=== PATIENT | female | born 1965 | race African-American/Black ===

== ENCOUNTER 2018-03-20 22:04 | Inpatient (IN) | payer MEDICAID, OTHER ==
[~2018-03-20] VITALS: Ht 165.1 cm; Wt 69.5 kg
[~2018-03-20 22:04] MED LIST: ALBU8I INH; INVE39IN IM; LISI-363 PO
[2018-03-20 22:11] VITALS: BP 168/94; PULSE 104; RESP 12; TEMP 98.4; O2SAT 98
--- NOTE | 2018-03-20 22:23 | PD ---
HPI Chief Complaint: Psychiatric Symptoms Time Seen by Provider: 22:08 Travel History International Travel<30 days: No Contact w/Intl Traveler<30days: No Traveled to known affect area: No History of Present Illness HPI 52-year-old black female with a history of bipolar, hypertension and MS presents under Bella act by PD. Family members contacted PD that the patient has been noncompliant with her medications. She had been getting in Ardon Mariangel injections but has not taken them recently. The patient states that she does not want to take injections any longer. She also states that she had an argument with her daughter who wants to be her payee. She does not want her daughter to be her payee. She states that her son is currently her payee and does not want to change it. She is concerned that she is attempting to get her money. Patient denies any suicidal homicidal ideation. No toxic ingestions. She does complain of chronic weakness which is progressively getting worse over time. She uses a cane for ambulation. She has not taken her evening medications. PFSH Past Medical History Asthma: Yes Blood Disorders: No Bipolar Disorder: Yes Anxiety: Yes Depression: Yes Cancer: Yes (STOMACH CANCER PER PT) Cardiovascular Problems: No COPD: Yes Diabetes: No Diminished Hearing: No Endocrine: No Gastrointestinal Disorders: No Genitourinary: No Hepatitis: Yes Hypertension: Yes Musculoskeletal: Yes (MS) Neurologic: No Psychiatric: Yes Reproductive: Yes (HERPES) Respiratory: No Immunizations Current: No Schizophrenia: Yes PNEUMOCCOCAL Vaccine (Year): 2 ?: Not Menopausal: Yes : 7 Para: 5 Miscarriage: 2 : 0 Dilation and Curettage (D&C): Yes (approx. 15 yrs ago) Tubal Ligation: Yes Past Surgical History AICD: No Arteriovenous Shunt: No Gynecologic Surgery: Yes Insulin Pump: No Joint Replacement: No Pacemaker: No Other Surgery: No Social History Alcohol Use: Yes (OCCASIONAL) Tobacco Use: Yes (1PPD) Substance Use: Yes (Marijuana) Allergies-Medications (Allergen,Severity, Reaction): Coded Allergies: diatrizoate meglumine (Unverified Adverse Reaction, Severe, UNKNOWN, ) PT IS UNAWARE OF ALLERGIES, SHE IS UNSURE, SHE SAID ADMITTED FOR 3 DAYS, SWOLLEN HEAD gadobenic acid (Unverified Adverse Reaction, Severe, UNKNOWN, 05/22/17) PT IS UNAWARE OF ALLERGIES, SHE IS UNSURE, SHE SAID ADMITTED FOR 3 DAYS, SWOLLEN HEAD gadodiamide (Unverified Adverse Reaction, Severe, UNKNOWN, 05/22/17) PT IS UNAWARE OF ALLERGIES, SHE IS UNSURE, SHE SAID ADMITTED FOR 3 DAYS, SWOLLEN HEAD gadoteridol (Unverified Adverse Reaction, Severe, UNKNOWN, 05/22/17) PT IS UNAWARE OF ALLERGIES, SHE IS UNSURE, SHE SAID ADMITTED FOR 3 DAYS, SWOLLEN HEAD iodixanol (Unverified Adverse Reaction, Severe, UNKNOWN, 05/22/17) PT IS UNAWARE OF ALLERGIES, SHE IS UNSURE, SHE SAID ADMITTED FOR 3 DAYS, SWOLLEN HEAD iohexol (Unverified Adverse Reaction, Severe, UNKNOWN, 05/22/17) PT IS UNAWARE OF ALLERGIES, SHE IS UNSURE, SHE SAID ADMITTED FOR 3 DAYS, SWOLLEN HEAD Reported Meds & Prescriptions Reported Meds & Active Scripts Active Reported Invega Sustenna (Paliperidone Palmitate) 39 Mg/0.25 Ml Inj 39 Mg IM Q28D *FOR INTRAMUSCULAR USE ONLY* Lisinopril 20 mg (Lisinopril) 20 Mg Tab 20 Mg PO DAILY Ventolin Hfa (Albuterol Sulfate) 8 Gm Aero 1 Puff INH Q4 PRN * SHAKE WELL BEFORE USE * Review of Systems General / Constitutional: No: Fever Eyes: Positive: Blurred Vision, Visual changes, No: Diploplia, Photophobia HENT: No: Headaches Cardiovascular: No: Chest Pain or Discomfort Respiratory: No: Shortness of Breath Gastrointestinal: No: Abdominal Pain Genitourinary: No: Dysuria Musculoskeletal: Positive: Weakness, No: Pain Skin: No Rash Neurologic: Positive: Weakness Psychiatric: No: Anxiety, Depression, Suicidal Ideations, Disorder of Thought, Mood Disorder, Substance Abuse, Homicidal Ideation Endocrine: No: Polydipsia Hematologic/Lymphatic: No: Easy Bruising Physical Exam Narrative GENERAL: Well-nourished, well-developed patient. SKIN: Warm and dry. HEAD: Normocephalic and atraumatic. EYES: No scleral icterus. No injection or drainage. ENT: No nasal drainage noted. Mucous membranes pink. Airway patent. NECK: Supple, trachea midline. Moves head freely without obvious discomfort. CARDIOVASCULAR: Regular rate and rhythm without murmurs, gallops, or rubs. RESPIRATORY: Breath sounds equal bilaterally. No accessory muscle use. GASTROINTESTINAL: Abdomen soft, non-tender, nondistended. EXTREMITIES: No cyanosis or edema. BACK: Nontender without obvious deformity. No CVA tenderness. NEURO: Patient is alert and oriented. Patient ambulates with a cane due to her generalized weakness from her MS. Normal speech. PSYCH: No delusions. No auditory or visual hallucinations. Data Data Last Documented VS Vital Signs Date Time Temp Pulse Resp B/P (MAP) Pulse Ox O2 Delivery O2 Flow Rate FiO2 03/20/18 22:11 98.4 104 12 168/94 (118) 98 Orders Orders Complete Blood Count With Diff (03/20/18 22:09) Comprehensive Metabolic Panel (03/20/18 22:09) Thyroid Stimulating Hormone (03/20/18 22:09) Ed Urine Pregnancytest Poc (03/20/18 22:09) Psych Screen (03/20/18 22:09) Drug Screen, Random Urine (03/20/18 22:09) Alcohol (Ethanol) (03/20/18 22:09) Salicylates (Aspirin) (03/20/18 22:09) Tylenol (Acetaminophen) (03/20/18 22:09) Labs Laboratory Tests Test 03/20/18 22:15 White Blood Count 5.2 TH/MM3 Red Blood Count 5.40 MIL/MM3 Hemoglobin 15.8 GM/DL Hematocrit 47.6 % Mean Corpuscular Volume 88.1 FL Mean Corpuscular Hemoglobin 29.3 PG Mean Corpuscular Hemoglobin Concent 33.3 % Red Cell Distribution Width 14.9 % Platelet Count 139 TH/MM3 Mean Platelet Volume 9.4 FL Neutrophils (%) (Auto) 74.6 % Lymphocytes (%) (Auto) 13.5 % Monocytes (%) (Auto) 10.5 % Eosinophils (%) (Auto) 0.5 % Basophils (%) (Auto) 0.9 % Neutrophils # (Auto) 3.9 TH/MM3 Lymphocytes # (Auto) 0.7 TH/MM3 Monocytes # (Auto) 0.5 TH/MM3 Eosinophils # (Auto) 0.0 TH/MM3 Basophils # (Auto) 0.0 TH/MM3 CBC Comment DIFF FINAL Differential Comment Blood Urea Nitrogen 12 MG/DL Creatinine 0.69 MG/DL Random Glucose 85 MG/DL Total Protein 8.3 GM/DL Albumin 4.2 GM/DL Calcium Level 9.2 MG/DL Alkaline Phosphatase 145 U/L Aspartate Amino Transf (AST/SGOT) 30 U/L Alanine Aminotransferase (ALT/SGPT) 28 U/L Total Bilirubin 1.0 MG/DL Sodium Level 142 MEQ/L Potassium Level 3.5 MEQ/L Chloride Level 106 MEQ/L Carbon Dioxide Level 19.8 MEQ/L Anion Gap 16 MEQ/L Estimat Glomerular Filtration Rate 109 ML/MIN Thyroid Stimulating Hormone 3rd Gen 2.010 uIU/ML Salicylates Level 6.7 MG/DL Urine Opiates Screen NEG Acetaminophen Level LESS THAN 2.0 MCG/ML Urine Barbiturates Screen NEG Urine Amphetamines Screen NEG Urine Benzodiazepines Screen NEG Urine Cocaine Screen NEG Urine Cannabinoids Screen POS Ethyl Alcohol Level LESS THAN 3 MG/DL MDM Medical Decision Making Medical Screen Exam Complete: Yes Emergency Medical Condition: Yes Medical Record Reviewed: Yes Interpretation(s) Laboratory Tests Test 03/20/18 22:15 White Blood Count 5.2 TH/MM3 Red Blood Count 5.40 MIL/MM3 Hemoglobin 15.8 GM/DL Hematocrit 47.6 % Mean Corpuscular Volume 88.1 FL Mean Corpuscular Hemoglobin 29.3 PG Mean Corpuscular Hemoglobin Concent 33.3 % Red Cell Distribution Width 14.9 % Platelet Count 139 TH/MM3 Mean Platelet Volume 9.4 FL Neutrophils (%) (Auto) 74.6 % Lymphocytes (%) (Auto) 13.5 % Monocytes (%) (Auto) 10.5 % Eosinophils (%) (Auto) 0.5 % Basophils (%) (Auto) 0.9 % Neutrophils # (Auto) 3.9 TH/MM3 Lymphocytes # (Auto) 0.7 TH/MM3 Monocytes # (Auto) 0.5 TH/MM3 Eosinophils # (Auto) 0.0 TH/MM3 Basophils # (Auto) 0.0 TH/MM3 CBC Comment DIFF FINAL Differential Comment Blood Urea Nitrogen 12 MG/DL Creatinine 0.69 MG/DL Random Glucose 85 MG/DL Total Protein 8.3 GM/DL Albumin 4.2 GM/DL Calcium Level 9.2 MG/DL Alkaline Phosphatase 145 U/L Aspartate Amino Transf (AST/SGOT) 30 U/L Alanine Aminotransferase (ALT/SGPT) 28 U/L Total Bilirubin 1.0 MG/DL Sodium Level 142 MEQ/L Potassium Level 3.5 MEQ/L Chloride Level 106 MEQ/L Carbon Dioxide Level 19.8 MEQ/L Anion Gap 16 MEQ/L Estimat Glomerular Filtration Rate 109 ML/MIN Thyroid Stimulating Hormone 3rd Gen 2.010 uIU/ML Salicylates Level 6.7 MG/DL Urine Opiates Screen NEG Acetaminophen Level LESS THAN 2.0 MCG/ML Urine Barbiturates Screen NEG Urine Amphetamines Screen NEG Urine Benzodiazepines Screen NEG Urine Cocaine Screen NEG Urine Cannabinoids Screen POS Ethyl Alcohol Level LESS THAN 3 MG/DL Differential Diagnosis MDM: High Differential diagnoses: Schizophrenia, schizoaffective disorder, bipolar, anxiety, depression, adjustment reaction, mood disorder NOS, ODD, depressive disorder NOS, psychosis NOS, substance induced mood disorder, infection, electrolyte abnormality, malingering. Narrative Course Mental health screening discussed with the patient. Psychiatric screen ordered. The patient has been medically cleared. This is medical clearance for psychiatric admission Diagnosis Primary Impression: Medical clearance for psychiatric admission Condition: Stable Kelechi Carrero Mar 20, 2018 22:23
[2018-03-20 22:50] LABS: AUTOMATED NEUTROPHIL # 3.9 TH/MM3 (1.8-7.7); BASOPHIL % 0.9 % (0.0-2.0); EOSINOPHIL % 0.5 % (0.0-4.0); HEMATOCRIT 47.6 % (35.0-46.0); HEMOGLOBIN 15.8 GM/DL (11.6-15.3); LYMPH % 13.5 % (9.0-44.0); LYMPHOCYTE # 0.7 TH/MM3 (1.0-4.8); MEAN CELL VOLUME 88.1 FL (80.0-100.0); MEAN CORPUSCULAR HEMOGLOBIN 29.3 PG (27.0-34.0); MEAN CORPUSCULAR HGB CONC 33.3 % (32.0-36.0); MEAN PLATELET VOLUME 9.4 FL (7.0-11.0); MONO % 10.5 % (0.0-8.0); MONOCYTE # 0.5 TH/MM3 (0-0.9); NEUT % 74.6 % (16.0-70.0); PLATELET COUNT 139 TH/MM3 (150-450); RED CELL DISTRIBUTION WIDTH 14.9 % (11.6-17.2); WHITE BLOOD COUNT 5.2 TH/MM3 (4.0-11.0)
[2018-03-20 23:13] LABS: ALBUMIN 4.2 GM/DL (3.4-5.0); AST (GOT) 30 U/L (15-37); BICARBONATE 19.8 MEQ/L (21.0-32.0); BLOOD UREA NITROGEN 12 MG/DL (7-18); CALCIUM 9.2 MG/DL (8.5-10.1); CHLORIDE 106 MEQ/L (98-107); CREATININE 0.69 MG/DL (0.50-1.00); GLOMERULAR FILTRATION RATE 109 ML/MIN (>89); GLUCOSE,RANDOM 85 MG/DL (74-106); SODIUM (NA) 142 MEQ/L (136-145)
[2018-03-20 23:24] LABS: ALKALINE PHOSPHATASE 145 U/L (45-117); ALT (GPT) 28 U/L (10-53); TOTAL PROTEIN 8.3 GM/DL (6.4-8.2)
[2018-03-20 23:29] LABS: ACETAMINOPHEN LESS THAN 2.0 MCG/ML (10.0-30.0)
[2018-03-21 01:17] VITALS: BP_SYST 148; BP_DIAS 88; BP_DIAS 91; PULSE 94; RESP 16; O2SAT 96
[2018-03-21 05:55] VITALS: BP 142/79; PULSE 99; RESP 16; O2SAT 99
[2018-03-21 07:47] VITALS: BP 141/84; PULSE 93; RESP 18; TEMP 98.6; O2SAT 98
--- NOTE | 2018-03-21 11:59 | PD ---
History of Present Illness Chief Complaint: Psychiatric Symptoms Time Seen by Provider: 11:35 Travel History International Travel<30 Days: No Contact w/Intl Traveler<30days: No Known affected area: No Legal Status Legal Status: Bella Act Bella Act Signed By: John Velasco Bella Act Comment: 2017 @ [id number] History of Present Illness: History of Present Illness HPI 52-year-old black female with record history of bipolar disorder, schizophrenia hypertension and MS presents under Bella act initiated by John LE. Family members contacted that the patient has been noncompliant with her medications. The Bella act itself is quite vague and states that she suffers from multiple mental disorders and is unable to care for herself due to her mental disorders. Her last prescribed medications as per the patient was in the vague but she has not had medication and at least 1 year. She tells me that she does not want to take the injections any longer because they made her too sleepy. EMR is reviewed. Her last psychiatric admission in contact with [facility] psychiatry was in March 2013. Current toxicology is positive for cannabinoids Alin, [employer] assistant manager for [facility] informs me that the patient was last seen at [facility] in October 2016. Telephone call to Steven OSMAN at [phone]. Unable to leave a message. Patient is seen in Main ED. She is dressed in [facility]. Disheveled appearance. She is engaging and cooperative. Her speech is fast, she is hyperverbal and circumstantial. She tells me that she will no longer wants to live with her daughter because " my daughter cusses me out over a turkey sandwich". She also makes allegations that her daughter is attempting to get her money. She also says that she does not like the area where she is living because people are threatening her and telling her that she does drugs and sells drugs. She then goes on to tell me "my daughter blames me for her problems because she eats cats. Her father who is also a cat and that is when she has stomach problems". The patient does not appear to be responding to internal stimuli. She denies suicidal ideation. She denies homicidal ideation but she makes frequent and repeated statements that she is going to beat her daughter up when she gets out of the hospital. Patient states that she has not been sleeping well in the last several weeks. PFSH Past Medical History Hx Anticoagulant Therapy: No Asthma: Yes Blood Disorders: No Bipolar Disorder: Yes Anxiety: Yes Depression: Yes Cancer: Yes (STOMACH CANCER PER PT) Cardiovascular Problems: Yes Chemotherapy: No COPD: Yes Cerebrovascular Accident: No Diabetes: No Diminished Hearing: No Endocrine: No Gastrointestinal Disorders: No Genitourinary: No Hepatitis: Yes Hypertension: Yes Musculoskeletal: Yes (MS) Neurologic: No Psychiatric: Yes Reproductive: Yes (HERPES) Respiratory: No Immunizations Current: Yes Schizophrenia: Yes Tetanus Vaccination: < 5 Years Influenza Vaccination: No PNEUMOCCOCAL Vaccine (Year): 2 ?: Not Menopausal: Yes : 7 Para: 5 Miscarriage: 2 : 0 Dilation and Curettage (D&C): Yes (approx. 15 yrs ago) Tubal Ligation: Yes Past Surgical History AICD: No Arteriovenous Shunt: No Gynecologic Surgery: Yes Insulin Pump: No Joint Replacement: No Pacemaker: No Other Surgery: No Psychiatric History Psychiatric History Hx Psychiatric Treatment: HISTORY OF BIPOLAR DISORDER. Record history of schizophrenia. Last received medications at [facility] in October 2016. History of Inpatient Treatment: Yes Guns or firearms in home: No Social History Single. Daughter. On disability Hx Alcohol Use: Yes (OCCASIONAL) Hx Tobacco Use: Yes (1PPD) Hx Substance Use: Yes (Marijuana) Substance Use Type: Alcohol, Crack, Marijuana Other Substances Used: DENIES RECENT CRACK USE Hx of Substance Use Treatment: No Family Psychiatric History None reported Allergies-Medications (Allergen,Severity, Reaction): Coded Allergies: diatrizoate meglumine (Unverified Adverse Reaction, Severe, UNKNOWN, ) PT IS UNAWARE OF ALLERGIES, SHE IS UNSURE, SHE SAID ADMITTED FOR 3 DAYS, SWOLLEN HEAD gadobenic acid (Unverified Adverse Reaction, Severe, UNKNOWN, 05/22/17) PT IS UNAWARE OF ALLERGIES, SHE IS UNSURE, SHE SAID ADMITTED FOR 3 DAYS, SWOLLEN HEAD gadodiamide (Unverified Adverse Reaction, Severe, UNKNOWN, 05/22/17) PT IS UNAWARE OF ALLERGIES, SHE IS UNSURE, SHE SAID ADMITTED FOR 3 DAYS, SWOLLEN HEAD gadoteridol (Unverified Adverse Reaction, Severe, UNKNOWN, 05/22/17) PT IS UNAWARE OF ALLERGIES, SHE IS UNSURE, SHE SAID ADMITTED FOR 3 DAYS, SWOLLEN HEAD iodixanol (Unverified Adverse Reaction, Severe, UNKNOWN, 05/22/17) PT IS UNAWARE OF ALLERGIES, SHE IS UNSURE, SHE SAID ADMITTED FOR 3 DAYS, SWOLLEN HEAD iohexol (Unverified Adverse Reaction, Severe, UNKNOWN, 05/22/17) PT IS UNAWARE OF ALLERGIES, SHE IS UNSURE, SHE SAID ADMITTED FOR 3 DAYS, SWOLLEN HEAD Reported Meds & Prescriptions Reported Meds & Active Scripts Active Reported Invega Sustenna (Paliperidone Palmitate) 39 Mg/0.25 Ml Inj 39 Mg IM Q28D *FOR INTRAMUSCULAR USE ONLY* Lisinopril 20 mg (Lisinopril) 20 Mg Tab 20 Mg PO DAILY Ventolin Hfa (Albuterol Sulfate) 8 Gm Aero 1 Puff INH Q4 PRN * SHAKE WELL BEFORE USE * Review of Systems ROS Limitations: Clinical Condition Mental Status Examination Appearance: Appropriate Consciousness: Alert Orientation: x4 Motor Activity: Abnormal gait, Other (uses a walker) Speech: Rapid Language: Adequate Fund of Knowledge: Adequate Attention and Concentration: Easily Distracted Memory: Unremarkable Mood: Angry Affect: Appropriate Thought Process & Associations: Circumstantial Thought Content: Appropriate Hallucination Type: None Delusion Type: None, Other (suspicious) Suicidal Ideation: No Suicidal Plan: No Suicidal Intention: No Homicidal Ideation: No Homicidal Plan: No Homicidal Intention: No Insight: Fair Judgment: Impulsive MDM Medical Decision Making Medical Record Reviewed: Yes Assessment/Plan History of Present Illness HPI 52-year-old black female with record history of bipolar disorder, schizophrenia hypertension and MS presents under Bella act initiated by [facility]. Family members contacted PD that the patient has been noncompliant with her medications. The Bella act itself is quite vague and states that she suffers from multiple mental disorders and is unable to care for herself due to her mental disorders. Her last prescribed medications as per the patient was in the vague but she has not had medication and at least 1 year. She tells me that she does not want to take the injections any longer because they made her too sleepy. Patient presents with suspicious and paranoid behavior and believes that her daughter is trying to take her money away, believes that people are threatening her and reporting that she uses drugs. She becomes very angry towards her daughter and threatens that she will beat her up when she leaves here. I was unable to obtain any collateral information and a call was placed to her son Steven at [phone]. Admit to inpatient psychiatry for safety, stabilization and medications adjustment. Orders Orders Complete Blood Count With Diff (03/20/18 22:09) Comprehensive Metabolic Panel (03/20/18 22:09) Thyroid Stimulating Hormone (03/20/18 22:09) Ed Urine Pregnancytest Poc (03/20/18 22:09) Psych Screen (03/20/18 22:09) Drug Screen, Random Urine (03/20/18 22:09) Alcohol (Ethanol) (03/20/18 22:09) Salicylates (Aspirin) (03/20/18 22:09) Tylenol (Acetaminophen) (03/20/18 22:09) Diet Regular Basic (03/21/18 Breakfast) Diet Regular Basic (03/21/18 Lunch) Results Vital Signs Date Time Temp Pulse Resp B/P (MAP) Pulse Ox O2 Delivery O2 Flow Rate FiO2 03/21/18 07:47 98.6 93 18 141/84 (103) 98 Room Air 03/21/18 07:46 93 18 03/21/18 05:55 99 16 142/79 (100) 99 Room Air 03/21/18 01:17 94 16 148/88 (108) 96 Room Air 03/20/18 22:11 98.4 104 12 168/94 (118) 98 Laboratory Tests Test 03/20/18 22:15 White Blood Count 5.2 Red Blood Count 5.40 Hemoglobin 15.8 Hematocrit 47.6 Mean Corpuscular Volume 88.1 Mean Corpuscular Hemoglobin 29.3 Mean Corpuscular Hemoglobin Concent 33.3 Red Cell Distribution Width 14.9 Platelet Count 139 Mean Platelet Volume 9.4 Neutrophils (%) (Auto) 74.6 Lymphocytes (%) (Auto) 13.5 Monocytes (%) (Auto) 10.5 Eosinophils (%) (Auto) 0.5 Basophils (%) (Auto) 0.9 Neutrophils # (Auto) 3.9 Lymphocytes # (Auto) 0.7 Monocytes # (Auto) 0.5 Eosinophils # (Auto) 0.0 Basophils # (Auto) 0.0 CBC Comment DIFF FINAL Differential Comment Blood Urea Nitrogen 12 Creatinine 0.69 Random Glucose 85 Total Protein 8.3 Albumin 4.2 Calcium Level 9.2 Alkaline Phosphatase 145 Aspartate Amino Transf (AST/SGOT) 30 Alanine Aminotransferase (ALT/SGPT) 28 Total Bilirubin 1.0 Sodium Level 142 Potassium Level 3.5 Chloride Level 106 Carbon Dioxide Level 19.8 Anion Gap 16 Estimat Glomerular Filtration Rate 109 Thyroid Stimulating Hormone 3rd Gen 2.010 Salicylates Level 6.7 Urine Opiates Screen NEG Acetaminophen Level LESS THAN 2.0 Urine Barbiturates Screen NEG Urine Amphetamines Screen NEG Urine Benzodiazepines Screen NEG Urine Cocaine Screen NEG Urine Cannabinoids Screen POS Ethyl Alcohol Level LESS THAN 3 Diagnosis Primary Impression: Medical clearance for psychiatric admission Additional Impression: Schizophrenia Admitting Information Admitting Physician Requests: Admit Disposition: 01 DISCHARGE HOME Condition: Stable Problem Qualifiers Additional Impression: Schizophrenia Qualified Codes: F20.0 - Paranoid schizophrenia Yuridia Rogers [facility] Mar 21, 2018 11:59
[2018-03-21] MEDS ORDERED: ACETAMINOPHEN 325 MG TAB PO PRN (12:15)
[2018-03-21] MEDS ORDERED: LORazepam 2 MG/ML VIAL IM PRN (12:15)
[2018-03-21] MEDS ORDERED: ALUMINUM/MAGNESIUM/SIMETH 30 ML CUP PO PRN (12:15)
[2018-03-21] MEDS ORDERED: MAGNESIUM HYDROXIDE SUSP 30 ML CUP PO PRN (12:15)
[2018-03-21 14:12] VITALS: BP 126/74; PULSE 78; RESP 17; TEMP 99; O2SAT 98
[2018-03-21 17:47] VITALS: BP 120/72; PULSE 78; RESP 16; TEMP 99; O2SAT 98
[2018-03-22 05:53] VITALS: BP 147/83; PULSE 77; RESP 18; TEMP 98.4; O2SAT 97
[2018-03-22 09:09] LABS: BICARBONATE 24.6 MEQ/L (21.0-32.0); BLOOD UREA NITROGEN 9 MG/DL (7-18); CALCIUM 8.7 MG/DL (8.5-10.1); CHLORIDE 106 MEQ/L (98-107); CHOLESTEROL 188 MG/DL (120-200); CREATININE 0.54 MG/DL (0.50-1.00); GLOMERULAR FILTRATION RATE 144 ML/MIN (>89); GLUCOSE,RANDOM 79 MG/DL (74-106); SODIUM (NA) 142 MEQ/L (136-145); TRIGLYCERIDES 55 MG/DL (42-150)
[2018-03-22 09:11] LABS: CHOLESTEROL/ HDL RATIO 3.35 RATIO; HDL CHOLESTEROL 56.1 MG/DL (40.0-60.0); LDL CHOLESTEROL 121 MG/DL (0-99)
--- NOTE | 2018-03-22 10:36 | EKG ---
Date Performed: 03/22/2018 Time Performed: 07:09:10 PTAGE: 52 years EKG: Sinus rhythm WITH OCCASIONAL VENTRICULAR PREMATURE COMPLEXES BORDERLINE ECG PREVIOUS TRACING : 09/07/2013 21.55 Compared to previous tracing, nonspecific T wave changes ar e no longer evident. DOCTOR: Rubio Kelly Interpretating Date/Time 03/22/2018 10:35:29
[2018-03-22] MEDS: LISINOPRIL 20 MG TAB PO SCH (10:38)
[2018-03-22] MEDS ORDERED: ALBUTEROL SULFATE 90 MCG/ACT HFA 8 GM INHALER INH PRN (12:15)
[2018-03-22] MEDS ORDERED: hydrOXYzine HCL 50 MG TAB PO PRN (12:15)
--- NOTE | 2018-03-22 12:44 | HHI.HP ---
Provisional Diagnosis Admission Date Mar 21, 2018 at 12:09 [place]. Range of chronic paranoid type Certification of Person's Competence To Provide Express and Informed Consent I have personally examined Jeanne Fiugeroa , a person being served at [facility] on, Mar 22, 2018 12:25. Express and informed consent means consent voluntarily given in writing, by a competent person, after sufficient explanation and disclosure of the subject matter involved to enable the person to make a knowing and willful decision without any element of force, fraud, deceit, duress, or other form of constraint or coercion. This person is 18 years of age or older, is not now known to be incompetent to consent to treatment with a guardian advocate, and does not have a health care surrogate or proxy currently making medical treatment decisions. I have found this person to be one of the following: [] Competent to provide express and informed consent, as defined above, for voluntary admission to this facility and is competent to provide express and informed consent for treatment. He/she has the consistent capacity to make well reasoned, willful, and knowing decisions concerning his or her medical or mental health treatment. The person fully and consistently understands the purpose of the admission for examination/placement and is fully capable of personally exercising all rights assured under [place] [] Incompetent to provide express and informed consent to voluntary admission, and this is incompetent to provide express and informed consent to treatment. The person must be transferred to involuntary status and a petition for a guardian advocate filed with the Circuit Court. []xxxx Refusing to provide express and informed consent to voluntary admission but is competent to provide express and informed consent for treatment. The person must be discharged or transferred to involuntary status. Form shall be completed within 24 hours of a person's arrival at the receiving facility and filed in the clinical record of each person: 1. Admitted on a voluntary basis 2. Permitted to provide express and informed consent to his/her own treatment 3. Allowed to transfer from involuntary to voluntary status 4. Prior to permitting a person to consent to his or her own treatment after having been previously found incompetent to consent to treatment. History of Present Illness Capacity: Lacks Capacity (Patient lacks capacity to sign for admission, patient has capacity to sign for medication) HPI Patient is a 52-year-old -Filipino female known to us from multiple prior contacts comes here under a Bella act by the [place] [employer] dated 03/20/2018 and 2127 hrs. that document reviewed and agreed with basically stating female suffers from multiple mental disorders female is unable to care for herself due to her mental disorders all friends and family members advised she needs mental help female has multiple medications that she is not currently on patient seen and screened in the ED urine toxicology positive for marijuana negative for alcohol. At the present time patient sitting in wheelchair in her room. Patient does have MS. Patient is seen with med student marcell. Patient exhibiting rapid pressured speech she is markedly disorganized and intense and intrusive. At times quite confusing. She does acknowledge being off of her medication for at least 1-2 months since she does not like the injections anymore it appears she has been on in Ardon sustain a in the past. She is confusing about where she is living now at times stating his family at times stating it is a friend down the block. She is vague about substance use but she acknowledges using some marijuana recently she is also vague about where she gets her mental health care in the community. She acknowledges intermittent command auditory hallucinations. She is vague about suicidality today. Need event at this time patient does meet criteria for involuntary psychiatric hospitalization on the Bella act I will do first opinion request second opinion. I feel she does have capacity to sign for medication. We will start her on a Ardon 6 mg daily we will continue medications from the med reconciliation. Hopeless be fairly short stay we can return her to her family Review of Systems Except as stated in HPI: all other systems reviewed are Neg Past Psych History Psychological trauma history Patient vague about past trauma though it appears that his present Violence risk - others (6 mos) Low Violence risk - self (6 mos) Low to moderate secondary to command hallucinations Substance Abuse History Drugs/Alcohol past 12 months Patient active marijuana user Past Family Social History Coded Allergies: diatrizoate meglumine (Unverified Adverse Reaction, Severe, UNKNOWN, ) PT IS UNAWARE OF ALLERGIES, SHE IS UNSURE, SHE SAID ADMITTED FOR 3 DAYS, SWOLLEN HEAD gadobenic acid (Unverified Adverse Reaction, Severe, UNKNOWN, 05/22/17) PT IS UNAWARE OF ALLERGIES, SHE IS UNSURE, SHE SAID ADMITTED FOR 3 DAYS, SWOLLEN HEAD gadodiamide (Unverified Adverse Reaction, Severe, UNKNOWN, 05/22/17) PT IS UNAWARE OF ALLERGIES, SHE IS UNSURE, SHE SAID ADMITTED FOR 3 DAYS, SWOLLEN HEAD gadoteridol (Unverified Adverse Reaction, Severe, UNKNOWN, 05/22/17) PT IS UNAWARE OF ALLERGIES, SHE IS UNSURE, SHE SAID ADMITTED FOR 3 DAYS, SWOLLEN HEAD iodixanol (Unverified Adverse Reaction, Severe, UNKNOWN, 05/22/17) PT IS UNAWARE OF ALLERGIES, SHE IS UNSURE, SHE SAID ADMITTED FOR 3 DAYS, SWOLLEN HEAD iohexol (Unverified Adverse Reaction, Severe, UNKNOWN, 05/22/17) PT IS UNAWARE OF ALLERGIES, SHE IS UNSURE, SHE SAID ADMITTED FOR 3 DAYS, SWOLLEN HEAD Reported Medications Paliperidone Palmitate (Invega Sustenna) 39 Mg/0.25 Ml Inj, 39 MG IM Q28D, INJ *FOR INTRAMUSCULAR USE ONLY* 07/16/14 Lisinopril 20 mg (Lisinopril 20 mg) 20 Mg Tab, 20 MG PO DAILY for Blood Pressure Management, TAB 07/16/14 Albuterol Sulfate 8 GM Inhaler (Ventolin Hfa) 8 Gm Aero, 1 PUFF INH Q4 Y for PRN , #1 * SHAKE WELL BEFORE USE * 09/08/13 Current Medications Medications (Trade) Dose Ordered Sig/John Route Start Time Stop Time Status Last Admin (Ativan Inj) 0.5 mg Q12H PRN IM 03/21/18 12:15 (Tylenol) 650 mg Q4H PRN PO 03/21/18 12:15 (Milk Of Magnesia Liq) 30 ml DAILY PRN PO 03/21/18 12:15 (Mag-Al Plus Susp Liq) 30 ml Q6H PRN PO 03/21/18 12:15 (Prinivil) 20 mg DAILY PO 03/22/18 09:00 03/22/18 10:38 (Benadryl) 50 mg HS PRN PO 03/22/18 12:15 UNV (Atarax) 50 mg Q6H PRN PO 03/22/18 12:15 UNV (Proair Hfa Inh) 1 puff BID PRN INH 03/22/18 12:15 UNV (Invega Er) 6 mg DAILY PO 03/22/18 12:30 UNV Family Psych History Unknown at this time Social History Patient living with family Patient's Strengths (min. 2) Patient verbal able access healthcare Physical Exam Patient medically cleared ED quietly in wheelchair she is in no acute distress, she is in no respiratory distress, no complaints of chest pain no complaints of abdominal pain patient moving upper extremities without difficulty Vital Signs Vital Signs Date Time Temp Pulse Resp B/P (MAP) Pulse Ox O2 Delivery O2 Flow Rate FiO2 03/22/18 05:53 98.4 77 18 147/83 (104) 97 03/21/18 07:47 Room Air Lab Results Test 03/22/18 06:26 Blood Urea Nitrogen 9 MG/DL Creatinine 0.54 MG/DL Random Glucose 79 MG/DL Calcium Level 8.7 MG/DL Sodium Level 142 MEQ/L Potassium Level 3.4 MEQ/L Chloride Level 106 MEQ/L Carbon Dioxide Level 24.6 MEQ/L Anion Gap 11 MEQ/L Estimat Glomerular Filtration Rate 144 ML/MIN Triglycerides Level 55 MG/DL Cholesterol Level 188 MG/DL LDL Cholesterol 121 MG/DL HDL Cholesterol 56.1 MG/DL Cholesterol/HDL Ratio 3.35 RATIO Mental Status Examination Appearance: Appropriate Consciousness: Alert Orientation: x4 Motor Activity: Abnormal gait, Other (uses a walker) Speech: Rapid Language: Adequate Fund of Knowledge: Adequate Attention and Concentration: Easily Distracted Memory: Unremarkable Mood: Angry Affect: Appropriate Thought Process & Associations: Circumstantial Thought Content: Appropriate Hallucination Type: Auditory (Intermittent command threatening) Delusion Type: None, Other (suspicious) Suicidal Ideation: No Suicidal Plan: No Suicidal Intention: No Homicidal Ideation: No Homicidal Plan: No Homicidal Intention: No Insight: Poor Judgment: Poor Assessment & Plan Problem List: (1) Schizophrenia ICD Codes: F20.9 - Schizophrenia, unspecified Status: Acute Assessment & Plan Estimated LOS: 3-5 days at this time patient meets criteria for involuntary psychiatric hospitalization I will do first opinion request second opinion I feel she is capacity. To sign for medication. We will start her on Invega 6 mg daily and observe behaviors Discharge Planning Hopefully return home to family Request HC Surrog/Guard Advoc?: No Problem Qualifiers (1) Schizophrenia: Qualified Codes: F20.0 - Paranoid schizophrenia Chevy Watson MD Mar 22, 2018 12:44
[2018-03-22] MEDS: PALIPERIDONE ER 6 MG TAB PO SCH (14:46)
[2018-03-22 15:53] LABS: HEMOGLOBIN A1C 4.8 % (4.3-6.0)
[2018-03-22 17:26] VITALS: BP 181/99; PULSE 94; RESP 19; TEMP 98.3; O2SAT 100
[2018-03-22] MEDS ORDERED: diphenhydrAMINE HCL 50 MG CAP PO PRN (21:00)
[2018-03-23] MEDS ORDERED: HALOPERIDOL LACTATE 5 MG/ML AMP IM ONE (01:30)
[2018-03-23] MEDS ORDERED: diphenhydrAMINE HCL 50 MG/ML VIAL IM ONE (01:30)
[2018-03-23 05:15] VITALS: BP 90/54; PULSE 100; RESP 16; TEMP 98; O2SAT 100
[2018-03-23] MEDS: PALIPERIDONE ER 6 MG TAB PO SCH (08:27)
[2018-03-23] MEDS: LISINOPRIL 20 MG TAB PO SCH (08:27)
--- NOTE | 2018-03-23 11:58 | HHI.PYPN ---
Subjective Remarks This is a request for second opinion. Admission note was reviewed and I agree with the history. Patient was seen and case was discussed with nursing. Patient is hyperverbal with pressured speech. She is quite loose and internally stimulated. She had to receive 2 ETO's yesterday. Compliant with medications. Denies suicidal or homicidal ideation intent or plan Mental Status Examination Appearance: Appropriate Consciousness: Alert Orientation: x4 Motor Activity: Abnormal gait, Other (uses a walker) Speech: Rapid Language: Adequate Fund of Knowledge: Adequate Attention and Concentration: Easily Distracted Memory: Unremarkable Mood: Angry Affect: Anxious Thought Process & Associations: Loose associations Thought Content: Appropriate Hallucination Type: Auditory (Internally stimulated, nonspecific) Delusion Type: None, Other (suspicious) Suicidal Ideation: No Suicidal Plan: No Suicidal Intention: No Homicidal Ideation: No Homicidal Plan: No Homicidal Intention: No Insight: Poor Judgment: Poor Results Vitals/IOs Vital Signs Date Time Temp Pulse Resp B/P (MAP) Pulse Ox O2 Delivery O2 Flow Rate FiO2 03/23/18 05:15 98.0 100 16 90/54 (66) 100 03/21/18 07:47 Room Air Assessment & Plan Problem List: (1) Schizophrenia ICD Codes: F20.9 - Schizophrenia, unspecified Status: Acute Assessment & Plan I agree with the first opinion to continue petition. Criteria include acute psychosis Justification for Cont. Inpt. Patient would decompensate in a less restrictive setting Request HC Surrog/Guard Advoc?: No Problem Qualifiers (1) Schizophrenia: Qualified Codes: F20.0 - Paranoid schizophrenia Wang Mcghee DO Mar 23, 2018 11:58
[2018-03-23 17:12] VITALS: BP 115/62; PULSE 66; RESP 18; TEMP 98.6; O2SAT 100
[2018-03-24 05:39] VITALS: BP 122/83; PULSE 81; RESP 18; TEMP 97.1; O2SAT 99
[2018-03-24 06:23] VITALS: BP 132/83; PULSE 81; RESP 18; TEMP 97.1; O2SAT 99
[2018-03-24] MEDS: PALIPERIDONE ER 6 MG TAB PO SCH (08:32)
[2018-03-24] MEDS: LISINOPRIL 20 MG TAB PO SCH (08:32)
--- NOTE | 2018-03-24 10:20 | HHI.PYPN ---
Subjective Remarks Patient was seen and case discussed with nursing. Today, patient's behavior has improved. She has not required any ETO's. Thought process is also less loose more logical. Speech is less pressured. Her main concern today is her not getting her MS medication for the past 3 days Mental Status Examination Appearance: Appropriate Consciousness: Alert Orientation: x4 Motor Activity: Abnormal gait, Other (uses a walker) Speech: Rapid Language: Adequate Fund of Knowledge: Adequate Attention and Concentration: Easily Distracted Memory: Unremarkable Mood: Irritable Affect: Anxious Thought Process & Associations: Loose associations Thought Content: Appropriate Hallucination Type: Auditory (Internally stimulated, nonspecific) Delusion Type: None, Other (suspicious) Suicidal Ideation: No Suicidal Plan: No Suicidal Intention: No Homicidal Ideation: No Homicidal Plan: No Homicidal Intention: No Insight: Poor Judgment: Poor Results Vitals/IOs Vital Signs Date Time Temp Pulse Resp B/P (MAP) Pulse Ox O2 Delivery O2 Flow Rate FiO2 03/24/18 06:23 97.1 81 18 132/83 (99) 99 03/21/18 07:47 Room Air Assessment & Plan Problem List: (1) Schizophrenia ICD Codes: F20.9 - Schizophrenia, unspecified Status: Acute Assessment & Plan Consult medicine for reconciliation of medication for MS Justification for Cont. Inpt. Continue current treatment plan Request HC Surrog/Guard Advoc?: No Problem Qualifiers (1) Schizophrenia: Qualified Codes: F20.0 - Paranoid schizophrenia Wang Mcghee DO Mar 24, 2018 10:20
--- NOTE | 2018-03-24 13:04 | PD.CONS ---
HPI Service [facility] Hospitalists Consult Requested By Dr. Mcghee Reason for Consult MS. Primary Care Physician Cole Llamas MD Diagnoses: (1) Hypertension (2) Multiple sclerosis (3) Schizophrenia History of Present Illness 52-year-old female with a medical history significant for schizophrenia, hypertension, multiple sclerosis admitted to the psychiatric unit for schizophrenia. Hospitalist service consulted for medical management and medication for multiple sclerosis. The patient reports she was diagnosed with multiple sclerosis about 2 years ago at [facility]. She states she resisted taking the medications for a while however for the past year, she reports she has been taking Aubagio which is helping with her symptoms. She does have difficulty walking due to leg weakness. She has not developed any new symptoms since arriving at the hospital. She has not had her medication restarted. She believes some of her medications were stolen by a drug addict. Patient has no other complaints at this time. Review of Systems ROS Limitations: Clinical Condition Neurologic: COMPLAINS OF: Abnormal gait, Poor Balance Psychiatric: COMPLAINS OF: Hallucinations, Delusions Except as stated in HPI: all other systems reviewed are Neg Past Family Social History Allergies: Coded Allergies: diatrizoate meglumine (Unverified Adverse Reaction, Severe, UNKNOWN, ) PT IS UNAWARE OF ALLERGIES, SHE IS UNSURE, SHE SAID ADMITTED FOR 3 DAYS, SWOLLEN HEAD gadobenic acid (Unverified Adverse Reaction, Severe, UNKNOWN, 05/22/17) PT IS UNAWARE OF ALLERGIES, SHE IS UNSURE, SHE SAID ADMITTED FOR 3 DAYS, SWOLLEN HEAD gadodiamide (Unverified Adverse Reaction, Severe, UNKNOWN, 05/22/17) PT IS UNAWARE OF ALLERGIES, SHE IS UNSURE, SHE SAID ADMITTED FOR 3 DAYS, SWOLLEN HEAD gadoteridol (Unverified Adverse Reaction, Severe, UNKNOWN, 05/22/17) PT IS UNAWARE OF ALLERGIES, SHE IS UNSURE, SHE SAID ADMITTED FOR 3 DAYS, SWOLLEN HEAD iodixanol (Unverified Adverse Reaction, Severe, UNKNOWN, 05/22/17) PT IS UNAWARE OF ALLERGIES, SHE IS UNSURE, SHE SAID ADMITTED FOR 3 DAYS, SWOLLEN HEAD iohexol (Unverified Adverse Reaction, Severe, UNKNOWN, 05/22/17) PT IS UNAWARE OF ALLERGIES, SHE IS UNSURE, SHE SAID ADMITTED FOR 3 DAYS, SWOLLEN HEAD Past Medical History Hypertension Schizophrenia Multiple sclerosis Past Surgical History Tubal ligation Reported Medications Reported Meds & Active Scripts Active Reported Invega Sustenna (Paliperidone Palmitate) 39 Mg/0.25 Ml Inj 39 Mg IM Q28D *FOR INTRAMUSCULAR USE ONLY* Lisinopril 20 mg (Lisinopril) 20 Mg Tab 20 Mg PO DAILY Ventolin Hfa (Albuterol Sulfate) 8 Gm Aero 1 Puff INH Q4 PRN * SHAKE WELL BEFORE USE * Aubagio 14 mg daily Family History Reviewed and is noncontributory. Social History Patient smoke a pack of cigarettes per day, admits to occasional marijuana and alcohol. Physical Exam Vital Signs Vital Signs Date Time Temp Pulse Resp B/P (MAP) Pulse Ox O2 Delivery O2 Flow Rate FiO2 03/24/18 06:23 97.1 81 18 132/83 (99) 99 03/24/18 05:39 97.1 81 18 122/83 (96) 99 03/23/18 17:12 98.6 66 18 115/62 (79) 100 Physical Exam GENERAL: Patient is apparently psychotic with pressured speech and disorganized thought. HEAD: Atraumatic. Normocephalic. No temporal or scalp tenderness. EYES: Pupils equal round and reactive. NECK: Trachea midline. No JVD or lymphadenopathy. CARDIOVASCULAR: Regular rate and rhythm without murmurs, gallops, or rubs. RESPIRATORY: Clear to auscultation. Breath sounds equal bilaterally. No wheezes , rales, or rhonchi. GASTROINTESTINAL: Abdomen soft, non-tender, nondistended. MUSCULOSKELETAL: Extremities without clubbing, cyanosis, or edema. NEUROLOGICAL: Awake and alert. Cranial nerves II through XII intact. 4 out of 5 muscle strength in bilateral lower extremities. Otherwise rest of the major muscle groups appear normal. Result Diagram: 03/20/18 2215 03/22/18 0626 Assessment and Plan Problem List: (1) Schizophrenia ICD Code: F20.9 - Schizophrenia, unspecified Status: Acute Plan: Management per psychiatry. (2) Multiple sclerosis ICD Code: G35 - Multiple sclerosis Plan: Patient reports she has been maintained on Aubagio 14 mg p.o. daily. Resume home medications. This is not on formulary. Advised nursing family may bring the medication and and the patient can take it while she is here. No indication that there is an acute MS flare up at this point. (3) Hypertension ICD Code: I10 - Essential (primary) hypertension Plan: Continue lisinopril. Assessment and Plan Patient is stable from a hospitalist standpoint. Call or reconsult with questions. We will sign off Discussed Condition With Patient and RN. Problem Qualifiers (1) Schizophrenia: Qualified Codes: F20.0 - Paranoid schizophrenia Luis Light MD Mar 24, 2018 13:04
[2018-03-24] MEDS ORDERED: AUBAGIO 14 MG PO SCH (14:00)
[2018-03-24 16:52] VITALS: BP 140/80; PULSE 95; RESP 16; TEMP 97.3; O2SAT 97
[2018-03-25 06:00] VITALS: BP 133/89; PULSE 80; RESP 16; TEMP 97.8; O2SAT 98
[2018-03-25] MEDS: PALIPERIDONE ER 6 MG TAB PO SCH (07:59)
[2018-03-25] MEDS: LISINOPRIL 20 MG TAB PO SCH (08:00)
[2018-03-25] MEDS ORDERED: LISI-515 PO (16:03)
[2018-03-25] MEDS ORDERED: Albuterol Hfa Inh INH (16:03)
[2018-03-25] MEDS ORDERED: INVE6TAB3 PO (16:03)
--- NOTE | 2018-03-25 16:08 | HHI.DS ---
Psychiatry Discharge Summary Inpatient Psychiatric care?: Yes Advance Directive: No Reason Not Provided: Patient refused Mental Health AdvanceDirective: No Health Care Proxy: No Admission Admission Date Mar 21, 2018 at 12:09 Admission Diagnosis: (1) Schizophrenia ICD Code: F20.9 - Schizophrenia, unspecified (2) Multiple sclerosis ICD Code: G35 - Multiple sclerosis Brief History Patient is a 52-year-old -Irish female known to us from multiple prior contacts comes here under a Bella act by the [place] [employer] dated 03/20/2018 and 8 hrs. that document reviewed and agreed with basically stating female suffers from multiple mental disorders female is unable to care for herself due to her mental disorders all friends and family members advised she needs mental help female has multiple medications that she is not currently on patient seen and screened in the ED urine toxicology positive for marijuana negative for alcohol. At the present time patient sitting in wheelchair in her room. Patient does have MS. Patient is seen with med student marcell. Patient exhibiting rapid pressured speech she is markedly disorganized and intense and intrusive. At times quite confusing. She does acknowledge being off of her medication for at least 1-2 months since she does not like the injections anymore it appears she has been on in [place] sustain a in the past. She is confusing about where she is living now at times stating his family at times stating it is a friend down the block. She is vague about substance use but she acknowledges using some marijuana recently she is also vague about where she gets her mental health care in the community. She acknowledges intermittent command auditory hallucinations. She is vague about suicidality today. Need event at this time patient does meet criteria for involuntary psychiatric hospitalization on the [place] act I will do first opinion request second opinion. I feel she does have capacity to sign for medication. We will start her on a Ardon 6 mg daily we will continue medications from the med reconciliation. Hopeless be fairly short stay we can return her to her family Tobacco Use In Past 30 Days: 5 or More Cigarettes/Day Alcohol Use: Monthly or Less Hospital Course Patient's hospital course was uneventful, she showed compliance with medication from day 1. The psychosis vigilance slowly did resolve with her compliance with the medication. She showed willingness to continue the oral medication after discharge saying she did not want to get an injection because of the pain. She denies suicidality homicidality voice or visions. At this time and appears she is reached maximum benefit of this hospitalization. She is willing to be discharged to her daughter. Thus patient will be discharged today to her daughter with Rx 1 month follow-up Pop Bhakta act Results Blood Pressure 133 / 89 Vital Signs Date Time Temp Pulse Resp B/P (MAP) Pulse Ox O2 Delivery O2 Flow Rate FiO2 03/25/18 06:00 97.8 80 16 133/89 (104) 98 03/21/18 07:47 Room Air Laboratory Results Test 03/22/18 06:26 Cholesterol Level 188 MG/DL (120-200) HDL Cholesterol 56.1 MG/DL (40.0-60.0) Hemoglobin A1c 4.8 % (4.3-6.0) LDL Cholesterol 121 MG/DL (0-99) Triglycerides Level 55 MG/DL (42-150) Summary of Procedures None done Pending results at discharge: No Medications # of Antipsychotic meds at D/C: 1 Approp Antipsych med options 1 - Minimum of three failed multiple trials of monotherapy. 2 - Documented plan to taper to monotherapy due to previous use of multiple meds OR cross-taper in progress at D/C. 3 - Documentation of augmentation of Clozapine. 4 - Justification other than those listed in allowable values 1-3, document here : Discharge Discharge Date: Mar 25, 2018 Discharge Diagnosis: (1) Schizophrenia Diagnosis: Principal ICD Code: F20.9 - Schizophrenia, unspecified Status: Acute (2) Multiple sclerosis Diagnosis: Secondary ICD Code: G35 - Multiple sclerosis Pt Condition on Discharge: Stable Discharge Disposition: Discharge Home Discharge Instructions Diet Instructions: As Tolerated, No Restrictions Activities you can perform: Regular-No Restrictions Scheduled Appointment: Pop Bhakta Act Discharge Time > 30 minutes Mental Status Examination Appearance: Appropriate Consciousness: Alert Orientation: x4 Motor Activity: Abnormal gait, Other (uses a walker) Speech: Rapid Language: Adequate Fund of Knowledge: Adequate Attention and Concentration: Easily Distracted Memory: Unremarkable Mood: Irritable Affect: Anxious Thought Process & Associations: Loose associations Thought Content: Appropriate Hallucination Type: Auditory (Internally stimulated, nonspecific) Delusion Type: None, Other (suspicious) Suicidal Ideation: No Suicidal Plan: No Suicidal Intention: No Homicidal Ideation: No Homicidal Plan: No Homicidal Intention: No Insight: Poor Judgment: Poor Discharge/Advance Care Plan Health Problems: (1) Schizophrenia Goals to promote your health * To prevent worsening of your condition and complications * To maintain your health at the optimal level Directions to meet your goals Take your medications as prescribed Follow your dietary instruction Follow activity as directed Keep your appointments as scheduled Take your immunizations and boosters as scheduled If your symptoms worsen call your PCP, if no PCP go to Urgent Care Center or Emergency Room For 30/04 questions related to your inpatient stay or results of tests pending at discharge, please contact Dr. Chevy Watson at Smoking is Dangerous to Your Health. Avoid second hand smoking Problem Qualifiers (1) Schizophrenia: Qualified Codes: F20.0 - Paranoid schizophrenia Chevy Watson MD Mar 25, 2018 16:08
== END 2018-03-25 18:00 | disposition home or self-care (01) | DRG 885 ==
LOC: NEDAMB 22:04 → NEDA 03-21 12:09 → H260 03-21 13:45 → H250 03-24 14:05
PROVIDERS: ADMIT Psychiatry & Neurology Psychiatry; ATTEND Psychiatry & Neurology Psychiatry
DX: F20.0 Paranoid schizophrenia (principal); G35 Multiple sclerosis; I10 Essential (primary) hypertension; F31.9 Bipolar disorder, unspecified; J44.9 Chronic obstructive pulmonary disease, unspecified; F17.210 Nicotine dependence, cigarettes, uncomplicated; F41.9 Anxiety disorder, unspecified; Z91.14 Patient's other noncompliance with medication regimen; Z85.028 Personal history of other malignant neoplasm of stomach
CPT/HCPCS: 80048; 80053; 80061; 80307; 83036; 84443; 85025; 93005; J1200; J1630; J2060; Q0163

== ENCOUNTER 2018-05-18 12:29 | Inpatient (IN) ==
--- NOTE | 2018-05-18 16:00 | ED ---
HPI General Chief Complaint: Medical Clearance Stated Complaint: Psych Eval Time Seen by Provider: 05/18/18 15:18 Source: patient Mode of arrival: ambulatory Limitations: no limitations History of Present Illness HPI Narrative: Patient is a 52-year-old female presenting to the emergency department for psychiatric evaluation voluntarily. Patient states she has been off of inVega for 1 year. She states since that time she has had increased hallucinations. She states she has racing thoughts and cannot concentrate. Patient states that she will be reading and walking and not know where she is going. Patient denies any suicidal or homicidal ideations. She denies any physical complaints at this time. complaint: other Onset (ago): month(s) Duration: constant History of same: Yes Relieving factors: medication Context: not taking psychiatric medications Associated psychiatric symptoms: racing thoughts, auditory hallucinations, visual hallucinations and delusions Associated symptoms: denies other symptoms Treatments prior to arrival: none Related Data Home Medications Medication Instructions Recorded Confirmed lisinopril 20 mg PO DAILY 04/16/18 05/18/18 pramipexole 1 mg PO TID 04/24/18 05/18/18 pregabalin [Lyrica] 50 mg PO BID 04/24/18 05/18/18 teriflunomide [Aubagio] 14 mg PO DAILY 04/24/18 05/18/18 quetiapine [Seroquel] 300 mg PO BID 05/18/18 05/18/18 Allergies Allergy/AdvReac Type Severity Reaction Status Date / Time diatrizoate meglumine AdvReac Severe UNKNOWN Verified 05/18/18 15:35 gadobenic acid AdvReac Severe UNKNOWN Verified 05/18/18 15:35 gadodiamide AdvReac Severe UNKNOWN Verified 05/18/18 15:35 gadoteridol AdvReac Severe UNKNOWN Verified 05/18/18 15:35 iodixanol AdvReac Severe UNKNOWN Verified 05/18/18 15:35 iohexol AdvReac Severe UNKNOWN Verified 05/18/18 15:35 Review of Systems ROS: all other systems reviewed are negative [facility] Medical History Medical History Bipolar 1 disorder (Acute) Hypertension (Acute) Multiple sclerosis (Acute) Surgical History Surgical History Hx of tubal ligation (Acute) Social History Social History Substance History: Past History Second Hand Smoke Exposure: Yes Smoking Status: Heavy tobacco smoker Tobacco Type: Cigarettes How Often Do You Have a Drink Containing Alcohol: Never Recent Travel in [facility] within the Last 8 Weeks: No Recent Out of Country Travel within the Last 8 Weeks: No Substance Abuse Detail Crack/Cocaine: Route Used Substance Abuse: Inhalation Reason for Use: Get High Immunization History Tetanus Immunization: Unsure Hx Influenza Vaccine This Season: No Exam Narrative Exam Narrative: GENERAL: Well-developed, well-nourished, alert female. Presenting in no acute distress. SKIN: Focused skin assessment warm/dry. HEAD: Atraumatic. Normocephalic. EYES: Pupils equal and round. No scleral icterus. No injection or drainage. ENT: No nasal bleeding or discharge. Mucous membranes pink and moist. NECK: Trachea midline. No JVD. CARDIOVASCULAR: Regular rate and rhythm. No murmur appreciated. RESPIRATORY: No accessory muscle use. Clear to auscultation. Breath sounds equal bilaterally. GASTROINTESTINAL: Abdomen soft, non-tender, nondistended. Hepatic and splenic margins not palpable. MUSCULOSKELETAL: No obvious deformities. No clubbing. No cyanosis. No edema. NEUROLOGICAL: Awake and alert. No obvious cranial nerve deficits. Motor grossly within normal limits. Normal speech. PSYCHIATRIC: Appropriate mood and affect; insight and judgment normal. Course Initial Documented Vital Signs Temperature 97.5 F L 05/18/18 12:47 Pulse Rate 109 H 05/18/18 12:47 Respiratory Rate 20 05/18/18 12:47 Blood Pressure 102/55 L 05/18/18 12:47 Pulse Oximetry 99 05/18/18 12:47 Last Documented Vital Signs Temperature 98.0 F 05/27/18 17:00 Pulse Rate 65 05/27/18 17:00 Respiratory Rate 18 05/27/18 17:00 Blood Pressure 104/57 L 05/27/18 17:00 Pulse Oximetry 97 05/27/18 17:00 Medical Decision Making MDM Narrative Medical decision making narrative: Patient is a 52-year-old female presenting voluntarily for psychiatric evaluation. Patient's vital signs are stable. Mental health screening discussed with the patient. Psychiatric screen ordered. Labs reviewed, no acute findings identified. Patient is medically clear for psychiatric evaluation Differential Diagnosis Differential Diagnosis: Mood disorder versus psychosis versus metabolic abnormality versus other Lab Data Result diagrams: 05/18/18 15:45 05/23/18 07:12 Lab Results 05/18/18 05/18/18 05/18/18 Range/Units 15:45 15:45 21:00 WBC 7.9 (4.0-11.0) th/mm3 RBC 4.48 (4.00-5.30) mil/mm3 Hgb 13.5 (11.6-15.3) gm/dL Hct 39.9 (35.0-46.0) % MCV 89.1 (80.0-100.0) fL MCH 30.1 (27.0-34.0) pg MCHC 33.8 (32.0-36.0) % RDW 15.3 (11.6-17.2) % Plt Count 179 (150-450) th/mm3 MPV 9.1 (7.0-11.0) fL Neut % (Auto) 77.7 H (16.0-70.0) % Lymph % (Auto) 13.2 (9.0-44.0) % [place] % (Auto) 8.1 H (0.0-8.0) % Eos % (Auto) 0.6 (0.0-4.0) % Baso % (Auto) 0.4 (0.0-2.0) % Neut # (Auto) 6.1 (1.8-7.7) th/mm3 Lymph # (Auto) 1.0 (1.0-4.8) th/mm3 [place] # (Auto) 0.6 (0.0-0.9) th/mm3 Eos # (Auto) 0.1 (0.0-0.4) th/mm3 Baso # (Auto) 0.0 (0.0-0.2) th/mm3 WBC Differential . Differential Comment Auto diff final Sodium 141 (136-145) meq/L Potassium 4.0 (3.5-5.1) meq/L Chloride 106 (98-107) meq/L Carbon Dioxide 28.2 (21.0-32.0) meq/L Anion Gap 7 (5-15) meq/L BUN 13 (7-18) mg/dL Creatinine 0.72 (0.50-1.00) mg/dL Estimated GFR Greater than 89 (>89) mL/min POC Glucose (68-110) mg/dl Random Glucose 113 H (74-106) mg/dL Hemoglobin A1c (4.3-6.0) % Calcium 8.7 (8.5-10.1) mg/dL Total Bilirubin 0.6 (0.2-1.0) mg/dL Direct Bilirubin (0.0-0.2) mg/dL Indirect Bilirubin (0.0-0.8) mg/dL AST 50 H (15-37) U/L ALT 138 H (10-53) U/L Alkaline Phosphatase 109 (45-117) U/L Total Protein 7.1 (6.4-8.2) g/dL Albumin 3.5 (3.4-5.0) g/dL Triglycerides (42-150) mg/dL Cholesterol (120-200) mg/dL LDL Cholesterol, Calc (0-99) mg/dL HDL Cholesterol (40.0-60.0) mg/dL Cholesterol/HDL Ratio Ratio TSH 1.240 (0.358-3.740) uIU/mL Urine Color (Yellw/Straw) Urine Clarity (Clear) Urine pH (5.0-8.5) Ur Specific [place] (1.002-1.035) Urine Protein (Neg-Trace) mg/dL Urine Glucose (UA) (Negative) mg/dL Urine Ketones (Negative) mg/dL Urine Occult Blood (Negative) Urine Nitrate (Negative) Urine Bilirubin (Negative) Urine Urobilinogen (Less than 2) mg/dL Ur Leukocyte Esterase (Negative) Urine RBC (0-3) /hpf Urine WBC (0-5) /hpf Ur Squamous Epith Cells (0-5) /hpf Urine Bacteria (None) /hpf Micro UA Comment Urine Culture Comments Urine Opiates Screen Neg (Neg) Ur Barbiturates Screen Neg (Neg) Ur Amphetamines Screen Neg (Neg) U Benzodiazepines Scrn Neg (Neg) Urine Cocaine Screen Neg (Neg) U Cannabinoids Screen Pos H (Neg) Serum Alcohol Less than 3 (0-5) mg/dL Hepatitis A IgM Ab (Nonreactive) Hep Bs Antigen (Nonreactive) Hep B Core IgM Ab (Nonreactive) Hep C IgG Ab (Nonreactive) 05/18/18 05/21/18 05/21/18 Range/Units 21:00 07:44 07:44 WBC (4.0-11.0) th/mm3 RBC (4.00-5.30) mil/mm3 Hgb (11.6-15.3) gm/dL Hct (35.0-46.0) % MCV (80.0-100.0) fL MCH (27.0-34.0) pg MCHC (32.0-36.0) % RDW (11.6-17.2) % Plt Count (150-450) th/mm3 MPV (7.0-11.0) fL Neut % (Auto) (16.0-70.0) % Lymph % (Auto) (9.0-44.0) % [place] % (Auto) (0.0-8.0) % Eos % (Auto) (0.0-4.0) % Baso % (Auto) (0.0-2.0) % Neut # (Auto) (1.8-7.7) th/mm3 Lymph # (Auto) (1.0-4.8) th/mm3 [place] # (Auto) (0.0-0.9) th/mm3 Eos # (Auto) (0.0-0.4) th/mm3 Baso # (Auto) (0.0-0.2) th/mm3 WBC Differential Differential Comment Sodium 142 (136-145) meq/L Potassium 4.0 (3.5-5.1) meq/L Chloride 109 H (98-107) meq/L Carbon Dioxide 26.9 (21.0-32.0) meq/L Anion Gap 6 (5-15) meq/L BUN 9 (7-18) mg/dL Creatinine 0.48 L (0.50-1.00) mg/dL Estimated GFR Greater than 89 (>89) mL/min POC Glucose (68-110) mg/dl Random Glucose 85 (74-106) mg/dL Hemoglobin A1c 5.8 (4.3-6.0) % Calcium 8.2 L (8.5-10.1) mg/dL Total Bilirubin (0.2-1.0) mg/dL Direct Bilirubin (0.0-0.2) mg/dL Indirect Bilirubin (0.0-0.8) mg/dL AST (15-37) U/L ALT (10-53) U/L Alkaline Phosphatase (45-117) U/L Total Protein (6.4-8.2) g/dL Albumin (3.4-5.0) g/dL Triglycerides 56 (42-150) mg/dL Cholesterol 167 (120-200) mg/dL LDL Cholesterol, Calc 96 (0-99) mg/dL HDL Cholesterol 59.9 (40.0-60.0) mg/dL Cholesterol/HDL Ratio 2.78 Ratio TSH (0.358-3.740) uIU/mL Urine Color Yellow (Yellw/Straw) Urine Clarity Clear (Clear) Urine pH 7.0 (5.0-8.5) Ur Specific [place] 1.014 (1.002-1.035) Urine Protein Negative (Neg-Trace) mg/dL Urine Glucose (UA) Negative (Negative) mg/dL Urine Ketones Negative (Negative) mg/dL Urine Occult Blood Negative (Negative) Urine Nitrate Negative (Negative) Urine Bilirubin Negative (Negative) Urine Urobilinogen Less than 2 (Less than 2) mg/dL Ur Leukocyte Esterase Negative (Negative) Urine RBC Less than 1 (0-3) /hpf Urine WBC 1 (0-5) /hpf Ur Squamous Epith Cells 2 (0-5) /hpf Urine Bacteria Rare H (None) /hpf Micro UA Comment Culture not ind Urine Culture Comments Culture not ind Urine Opiates Screen (Neg) Ur Barbiturates Screen (Neg) Ur Amphetamines Screen (Neg) U Benzodiazepines Scrn (Neg) Urine Cocaine Screen (Neg) U Cannabinoids Screen (Neg) Serum Alcohol (0-5) mg/dL Hepatitis A IgM Ab (Nonreactive) Hep Bs Antigen (Nonreactive) Hep B Core IgM Ab (Nonreactive) Hep C IgG Ab (Nonreactive) 05/21/18 05/21/18 05/23/18 Range/Units 07:44 17:28 06:18 WBC (4.0-11.0) th/mm3 RBC (4.00-5.30) mil/mm3 Hgb (11.6-15.3) gm/dL Hct (35.0-46.0) % MCV (80.0-100.0) fL MCH (27.0-34.0) pg MCHC (32.0-36.0) % RDW (11.6-17.2) % Plt Count (150-450) th/mm3 MPV (7.0-11.0) fL Neut % (Auto) (16.0-70.0) % Lymph % (Auto) (9.0-44.0) % [place] % (Auto) (0.0-8.0) % Eos % (Auto) (0.0-4.0) % Baso % (Auto) (0.0-2.0) % Neut # (Auto) (1.8-7.7) th/mm3 Lymph # (Auto) (1.0-4.8) th/mm3 [place] # (Auto) (0.0-0.9) th/mm3 Eos # (Auto) (0.0-0.4) th/mm3 Baso # (Auto) (0.0-0.2) th/mm3 WBC Differential Differential Comment Sodium (136-145) meq/L Potassium (3.5-5.1) meq/L Chloride (98-107) meq/L Carbon Dioxide (21.0-32.0) meq/L Anion Gap (5-15) meq/L BUN (7-18) mg/dL Creatinine (0.50-1.00) mg/dL Estimated GFR (>89) mL/min POC Glucose 121 H (68-110) mg/dl Random Glucose (74-106) mg/dL Hemoglobin A1c (4.3-6.0) % Calcium (8.5-10.1) mg/dL Total Bilirubin 0.5 (0.2-1.0) mg/dL Direct Bilirubin 0.1 (0.0-0.2) mg/dL Indirect Bilirubin 0.4 (0.0-0.8) mg/dL AST 53 H (15-37) U/L ALT 208 H (10-53) U/L Alkaline Phosphatase 105 (45-117) U/L Total Protein 6.6 (6.4-8.2) g/dL Albumin 3.2 L (3.4-5.0) g/dL Triglycerides (42-150) mg/dL Cholesterol (120-200) mg/dL LDL Cholesterol, Calc (0-99) mg/dL HDL Cholesterol (40.0-60.0) mg/dL Cholesterol/HDL Ratio Ratio TSH (0.358-3.740) uIU/mL Urine Color (Yellw/Straw) Urine Clarity (Clear) Urine pH (5.0-8.5) Ur Specific [place] (1.002-1.035) Urine Protein (Neg-Trace) mg/dL Urine Glucose (UA) (Negative) mg/dL Urine Ketones (Negative) mg/dL Urine Occult Blood (Negative) Urine Nitrate (Negative) Urine Bilirubin (Negative) Urine Urobilinogen (Less than 2) mg/dL Ur Leukocyte Esterase (Negative) Urine RBC (0-3) /hpf Urine WBC (0-5) /hpf Ur Squamous Epith Cells (0-5) /hpf Urine Bacteria (None) /hpf Micro UA Comment Urine Culture Comments Urine Opiates Screen (Neg) Ur Barbiturates Screen (Neg) Ur Amphetamines Screen (Neg) U Benzodiazepines Scrn (Neg) Urine Cocaine Screen (Neg) U Cannabinoids Screen (Neg) Serum Alcohol (0-5) mg/dL Hepatitis A IgM Ab Nonreactive (Nonreactive) Hep Bs Antigen Nonreactive (Nonreactive) Hep B Core IgM Ab Nonreactive (Nonreactive) Hep C IgG Ab Nonreactive (Nonreactive) 05/23/18 Range/Units 07:12 WBC (4.0-11.0) th/mm3 RBC (4.00-5.30) mil/mm3 Hgb (11.6-15.3) gm/dL Hct (35.0-46.0) % MCV (80.0-100.0) fL MCH (27.0-34.0) pg MCHC (32.0-36.0) % RDW (11.6-17.2) % Plt Count (150-450) th/mm3 MPV (7.0-11.0) fL Neut % (Auto) (16.0-70.0) % Lymph % (Auto) (9.0-44.0) % [place] % (Auto) (0.0-8.0) % Eos % (Auto) (0.0-4.0) % Baso % (Auto) (0.0-2.0) % Neut # (Auto) (1.8-7.7) th/mm3 Lymph # (Auto) (1.0-4.8) th/mm3 [place] # (Auto) (0.0-0.9) th/mm3 Eos # (Auto) (0.0-0.4) th/mm3 Baso # (Auto) (0.0-0.2) th/mm3 WBC Differential Differential Comment Sodium 141 (136-145) meq/L Potassium 4.0 (3.5-5.1) meq/L Chloride 107 (98-107) meq/L Carbon Dioxide 27.6 (21.0-32.0) meq/L Anion Gap 6 (5-15) meq/L BUN 10 (7-18) mg/dL Creatinine 0.56 (0.50-1.00) mg/dL Estimated GFR Greater than 89 (>89) mL/min POC Glucose (68-110) mg/dl Random Glucose 80 (74-106) mg/dL Hemoglobin A1c (4.3-6.0) % Calcium 8.6 (8.5-10.1) mg/dL Total Bilirubin 0.4 (0.2-1.0) mg/dL Direct Bilirubin (0.0-0.2) mg/dL Indirect Bilirubin (0.0-0.8) mg/dL AST 29 (15-37) U/L ALT 137 H (10-53) U/L Alkaline Phosphatase 113 (45-117) U/L Total Protein 7.3 D (6.4-8.2) g/dL Albumin 3.5 (3.4-5.0) g/dL Triglycerides (42-150) mg/dL Cholesterol (120-200) mg/dL LDL Cholesterol, Calc (0-99) mg/dL HDL Cholesterol (40.0-60.0) mg/dL Cholesterol/HDL Ratio Ratio TSH (0.358-3.740) uIU/mL Urine Color (Yellw/Straw) Urine Clarity (Clear) Urine pH (5.0-8.5) Ur Specific [place] (1.002-1.035) Urine Protein (Neg-Trace) mg/dL Urine Glucose (UA) (Negative) mg/dL Urine Ketones (Negative) mg/dL Urine Occult Blood (Negative) Urine Nitrate (Negative) Urine Bilirubin (Negative) Urine Urobilinogen (Less than 2) mg/dL Ur Leukocyte Esterase (Negative) Urine RBC (0-3) /hpf Urine WBC (0-5) /hpf Ur Squamous Epith Cells (0-5) /hpf Urine Bacteria (None) /hpf Micro UA Comment Urine Culture Comments Urine Opiates Screen (Neg) Ur Barbiturates Screen (Neg) Ur Amphetamines Screen (Neg) U Benzodiazepines Scrn (Neg) Urine Cocaine Screen (Neg) U Cannabinoids Screen (Neg) Serum Alcohol (0-5) mg/dL Hepatitis A IgM Ab (Nonreactive) Hep Bs Antigen (Nonreactive) Hep B Core IgM Ab (Nonreactive) Hep C IgG Ab (Nonreactive) Imaging Data Radiologist's impression: Cervical Spine MRI 05/22/18 00:00 CONCLUSION: 1. Minimal increased signal in the upper cervical cord at the C2-C3 level would be consistent with a demyelinating process. 2. There is no cord expansion to suggest neoplastic process. 3. This can easily be followed by MRI. Head MRI 05/22/18 00:00 CONCLUSION: Periventricular white matter changes that would be consistent with a pneumonic process. There is enhancement to suggest an acute process at this time. Posterior fossa is unremarkable. Discharge Plan Discharge Disposition Patient Disposition: 30 Still Patient Discharge Condition Condition: Stable Discharge Details Diagnosis: Medical clearance for psychiatric admission Physicians Team ED Provider: Andi Miner ED Midlevel Provider: Candy Stewart Primary Care Provider: Cole Llamas Attending Provider: Erik Omalley Other Providers: Dante Villarreal Status ED Status: Left Department Discharge Information Discharge Date/Time: 05/19/18 14:39
[2018-05-18 16:19] LABS: Baso % (Auto) 0.4 % (0.0-2.0); Eos # (Auto) 0.1 th/mm3 (0.0-0.4); Eos % (Auto) 0.6 % (0.0-4.0); Hematocrit 39.9 % (35.0-46.0); Hemoglobin 13.5 gm/dL (11.6-15.3); Lymph % (Auto) 13.2 % (9.0-44.0); Mean Corpuscular HGB Conc 33.8 % (32.0-36.0); Mean Corpuscular Hemoglobin 30.1 pg (27.0-34.0); Mean Corpuscular Volume 89.1 fL (80.0-100.0); Mean Platelet Volume 9.1 fL (7.0-11.0); Mono # (Auto) 0.6 th/mm3 (0.0-0.9); Mono % (Auto) 8.1 % (0.0-8.0); Neut # (Auto) 6.1 th/mm3 (1.8-7.7); Neut % (Auto) 77.7 % (16.0-70.0); Platelet Count 179 th/mm3 (150-450); Red Blood Count 4.48 mil/mm3 (4.00-5.30); Red Cell Distribution Width 15.3 % (11.6-17.2); White Blood Count 7.9 th/mm3 (4.0-11.0)
[2018-05-18 16:38] LABS: Alanine Aminotransferase 138 U/L (10-53); Albumin 3.5 g/dL (3.4-5.0); Anion Gap 7 meq/L (5-15); Aspartate Aminotransferase 50 U/L (15-37); Blood Urea Nitrogen 13 mg/dL (7-18); Calcium 8.7 mg/dL (8.5-10.1); Carbon Dioxide 28.2 meq/L (21.0-32.0); Chloride 106 meq/L (98-107); Glomerular Filtration Rate Greater Than 89 mL/min (>89); Glucose,Random 113 mg/dL (74-106); Sodium 141 meq/L (136-145)
[2018-05-18 16:48] LABS: Alkaline Phosphatase 109 U/L (45-117); Total Protein 7.1 g/dL (6.4-8.2)
[2018-05-18 22:42] LABS: Bacteria,Urine Rare /hpf; Bilirubin,Urine Negative (Negative); Clarity,Urine Clear (Clear); Color,Urine Yellow (Yellw/Straw); Glucose,Urine (UA) Negative (Negative); Leukocyte Esterase,Urine Negative (Negative); Nitrite,Urine Negative (Negative); Specific Gravity,Urine 1.014 (1.002-1.035); Squamous Epithelial Cell,Urine 2 /hpf (0-5)
[2018-05-19 05:43] LABS: Amphetamine Screen,Urine Neg (Neg); Barbiturate Screen,Urine Neg (Neg); Cannabinoid Screen,Urine Pos (Neg); Cocaine Screen,Urine Neg (Neg)
[2018-05-19 05:44] LABS: Opiate Screen,Urine Neg (Neg)
[2018-05-19] MEDS ORDERED: Aluminum/Magnesium/Simethacone Susp 30 ML UDC PO PRN (12:07)
--- NOTE | 2018-05-19 12:49 | ED ---
HPI - Psych - General Source: patient Mode of arrival: ambulatory Limitations: physical limitation (patient has MS and ambulates with a walker) - History of Present Illness complaint: other (Wants to hurt/kill her [id number]) Onset (ago): year(s) Duration: constant History of same: Yes Relieving factors: medication Context: not taking psychiatric medications Associated psychiatric symptoms: homicidal ideation Associated symptoms: denies other symptoms Treatments prior to arrival: none - General Chief Complaint: Medical Clearance Stated Complaint: Psych Eval Time Seen by Provider: 05/18/18 15:18 - History of Present Illness HPI Narrative: This is a 52 year-old, single, -[place] female who presents to this facility requesting to have her medication restarted. She is previously known to this facility and her last admission was 03/21-03/25/18. Reviewed electronic medical record, labs, and discussed case with staff. Toxicology screen positive for marijuana. Patient's evaluation performed in D43. She is found on the stretcher awake, alert, and oriented to self and place at least. Her speech is clear, organized, logical, rapid, and pressured. She denies suicidal ideation and visual hallucinations, but endorses homicidal ideation and auditory hallucinations. Her mood is good and her affect euthymic until she thinks of her [id number] at which point her mood becomes agitated and her affect irritable. I can elicit no delusional material. She does seem to have some internal stimulation present. This patient maintains that she wants to harm her [id number] whom she refers to as a "straight whore from hell". She mentions that in spite of her MS she feels that she can overpower her and would like to "beat her ass". She endorses auditory hallucinations and states that they tell her to "calm down and read my bible". She is requesting to be restarted on her [employer] stating that it "really helped me". She denies having access to firearms. Reports that she smokes one pack of cigarettes per day, denies drinking alcohol , and denies using drugs. When told her toxicology screen is positive for cannabinoids she states that she "tried medical marijuana" but is evasive as to where it came from. This patient was placed under a Bella Act by the ED physician. (Lenka Manzanares) - Related Data Home Medications Medication Instructions Recorded Confirmed lisinopril 20 mg PO DAILY 04/16/18 05/18/18 pramipexole 1 mg PO TID 04/24/18 05/18/18 pregabalin [Lyrica] 50 mg PO BID 04/24/18 05/18/18 teriflunomide [Aubagio] 14 mg PO DAILY 04/24/18 05/18/18 quetiapine [Seroquel] 300 mg PO BID 05/18/18 05/18/18 Allergies Allergy/AdvReac Type Severity Reaction Status Date / Time diatrizoate meglumine AdvReac Severe UNKNOWN Verified 05/18/18 15:35 gadobenic acid AdvReac Severe UNKNOWN Verified 05/18/18 15:35 gadodiamide AdvReac Severe UNKNOWN Verified 05/18/18 15:35 gadoteridol AdvReac Severe UNKNOWN Verified 05/18/18 15:35 iodixanol AdvReac Severe UNKNOWN Verified 05/18/18 15:35 iohexol AdvReac Severe UNKNOWN Verified 05/18/18 15:35 Review of Systems All other systems reviewed negative except as stated in HPI PMFSH - History History Provided By: Patient - Medical History Medical History: Medical History (Last Reviewed 05/19/18 @ 12:36 by LAURA Pettit) Bipolar 1 disorder Hypertension Multiple sclerosis - Tobacco History Second Hand Smoke Exposure: Yes Tobacco Use In Past 30 Days: Yes Smoking Status: Current every day smoker Tobacco Type: Cigarettes - Alcohol History How Often Do You Have a Drink Containing Alcohol: Never - Substance Use History Substance History: Past History - Substance Use Type Crack/Cocaine Status: Sustained Remission Route Used: Inhalation Reason for Use: Get High Comment: COCAINE. PATIENT REPORTS BEING BORN A "CRACK BABY." - Travel History Recent Travel in the [place] Within the Last 8 Weeks: No Recent Travel Out of the Country Within the Last 8 Weeks: No - Immunization History Tetanus Immunization: Unsure Hx Influenza Vaccine This Season: No Psychiatric History - Psychiatric History Psychiatric Treatment History: History of Psychiatric Treatment, History of Hospitalization in a Psychiatric Facility History of Inpatient Treatment: Yes Firearms in Home: No - Psychiatric History Last inpatient admission at this facility was from 03/21-03/25/18. (Lenka Manzanares) - Legal History Denies (Lenka Manzanares) Physical Exam - General Limitations: physical limitation (ambulates with a walker) General appearance: alert - Neurological Exam Neurological exam: Present: alert, oriented X3 - Psychiatric Psychiatric exam: Present: normal affect (when mentions daughter in law becomes agitated and irritable) Mental Status Examination Appearance: Appropriate Consciousness: Alert Orientation: x4 Motor Activity: Normal gait Speech: Unremarkable Language: Adequate Fund of Knowledge: Adequate Attention and Concentration: Adequate Memory: Unremarkable Mood: Appropriate Affect: Appropriate Thought Process & Associations: Intact Thought Content: Appropriate Hallucination Type: None Delusion Type: None Suicidal Ideation: No Suicidal Plan: No Suicidal Intention: No Homicidal Ideation: Yes (Reporting that she wants to cause serious bodily injury to her daughter in law.) Homicidal Plan: No Homicidal Intention: No Insight: Fair Judgment: Impulsive Initial Documented Vital Signs Temperature 97.5 F L 05/18/18 12:47 Pulse Rate 109 H 05/18/18 12:47 Respiratory Rate 20 05/18/18 12:47 Blood Pressure 102/55 L 05/18/18 12:47 Pulse Oximetry 99 05/18/18 12:47 Last Documented Vital Signs Temperature 98.6 F 05/18/18 22:56 Pulse Rate 85 05/18/18 22:56 Respiratory Rate 16 05/18/18 22:56 Blood Pressure 140/83 05/18/18 22:56 Pulse Oximetry 98 05/18/18 22:56 [facility] - Psych - Lab Data Result diagrams: 05/18/18 15:45 05/18/18 15:45 - [facility] Narrative Medical decision making narrative: Given the patient's well-documented history of schizophrenia, and her adamant endorsement of causing physical harm to her [id number], I am admitting her to a locked inpatient psychiatric unit for further evaluation and treatment as deemed necessary. She will be admitted under the Bella Act. (Lenka Manzanares) - Lab Data Lab Results 05/18/18 05/18/18 05/18/18 Range/Units 15:45 15:45 21:00 WBC 7.9 (4.0-11.0) th/mm3 RBC 4.48 (4.00-5.30) mil/mm3 Hgb 13.5 (11.6-15.3) gm/dL Hct 39.9 (35.0-46.0) % MCV 89.1 (80.0-100.0) fL MCH 30.1 (27.0-34.0) pg MCHC 33.8 (32.0-36.0) % RDW 15.3 (11.6-17.2) % Plt Count 179 (150-450) th/mm3 MPV 9.1 (7.0-11.0) fL Neut % (Auto) 77.7 H (16.0-70.0) % Lymph % (Auto) 13.2 (9.0-44.0) % [place] % (Auto) 8.1 H (0.0-8.0) % Eos % (Auto) 0.6 (0.0-4.0) % Baso % (Auto) 0.4 (0.0-2.0) % Neut # (Auto) 6.1 (1.8-7.7) th/mm3 Lymph # (Auto) 1.0 (1.0-4.8) th/mm3 [place] # (Auto) 0.6 (0.0-0.9) th/mm3 Eos # (Auto) 0.1 (0.0-0.4) th/mm3 Baso # (Auto) 0.0 (0.0-0.2) th/mm3 WBC Differential . Differential Comment Auto diff final Sodium 141 (136-145) meq/L Potassium 4.0 (3.5-5.1) meq/L Chloride 106 (98-107) meq/L Carbon Dioxide 28.2 (21.0-32.0) meq/L Anion Gap 7 (5-15) meq/L BUN 13 (7-18) mg/dL Creatinine 0.72 (0.50-1.00) mg/dL Estimated GFR Greater than 89 (>89) mL/min Random Glucose 113 H (74-106) mg/dL Calcium 8.7 (8.5-10.1) mg/dL Total Bilirubin 0.6 (0.2-1.0) mg/dL AST 50 H (15-37) U/L ALT 138 H (10-53) U/L Alkaline Phosphatase 109 (45-117) U/L Total Protein 7.1 (6.4-8.2) g/dL Albumin 3.5 (3.4-5.0) g/dL TSH 1.240 (0.358-3.740) uIU/mL Urine Color (Yellw/Straw) Urine Clarity (Clear) Urine pH (5.0-8.5) Ur Specific [place] (1.002-1.035) Urine Protein (Neg-Trace) mg/dL Urine Glucose (UA) (Negative) mg/dL Urine Ketones (Negative) mg/dL Urine Occult Blood (Negative) Urine Nitrate (Negative) Urine Bilirubin (Negative) Urine Urobilinogen (Less than 2) mg/dL Ur Leukocyte Esterase (Negative) Urine RBC (0-3) /hpf Urine WBC (0-5) /hpf Ur Squamous Epith Cells (0-5) /hpf Urine Bacteria (None) /hpf Micro UA Comment Urine Culture Comments Urine Opiates Screen Neg (Neg) Ur Barbiturates Screen Neg (Neg) Ur Amphetamines Screen Neg (Neg) U Benzodiazepines Scrn Neg (Neg) Urine Cocaine Screen Neg (Neg) U Cannabinoids Screen Pos H (Neg) Serum Alcohol Less than 3 (0-5) mg/dL 05/18/18 Range/Units 21:00 WBC (4.0-11.0) th/mm3 RBC (4.00-5.30) mil/mm3 Hgb (11.6-15.3) gm/dL Hct (35.0-46.0) % MCV (80.0-100.0) fL MCH (27.0-34.0) pg MCHC (32.0-36.0) % RDW (11.6-17.2) % Plt Count (150-450) th/mm3 MPV (7.0-11.0) fL Neut % (Auto) (16.0-70.0) % Lymph % (Auto) (9.0-44.0) % [place] % (Auto) (0.0-8.0) % Eos % (Auto) (0.0-4.0) % Baso % (Auto) (0.0-2.0) % Neut # (Auto) (1.8-7.7) th/mm3 Lymph # (Auto) (1.0-4.8) th/mm3 [place] # (Auto) (0.0-0.9) th/mm3 Eos # (Auto) (0.0-0.4) th/mm3 Baso # (Auto) (0.0-0.2) th/mm3 WBC Differential Differential Comment Sodium (136-145) meq/L Potassium (3.5-5.1) meq/L Chloride (98-107) meq/L Carbon Dioxide (21.0-32.0) meq/L Anion Gap (5-15) meq/L BUN (7-18) mg/dL Creatinine (0.50-1.00) mg/dL Estimated GFR (>89) mL/min Random Glucose (74-106) mg/dL Calcium (8.5-10.1) mg/dL Total Bilirubin (0.2-1.0) mg/dL AST (15-37) U/L ALT (10-53) U/L Alkaline Phosphatase (45-117) U/L Total Protein (6.4-8.2) g/dL Albumin (3.4-5.0) g/dL TSH (0.358-3.740) uIU/mL Urine Color Yellow (Yellw/Straw) Urine Clarity Clear (Clear) Urine pH 7.0 (5.0-8.5) Ur Specific [place] 1.014 (1.002-1.035) Urine Protein Negative (Neg-Trace) mg/dL Urine Glucose (UA) Negative (Negative) mg/dL Urine Ketones Negative (Negative) mg/dL Urine Occult Blood Negative (Negative) Urine Nitrate Negative (Negative) Urine Bilirubin Negative (Negative) Urine Urobilinogen Less than 2 (Less than 2) mg/dL Ur Leukocyte Esterase Negative (Negative) Urine RBC Less than 1 (0-3) /hpf Urine WBC 1 (0-5) /hpf Ur Squamous Epith Cells 2 (0-5) /hpf Urine Bacteria Rare H (None) /hpf Micro UA Comment Culture not ind Urine Culture Comments Culture not ind Urine Opiates Screen (Neg) Ur Barbiturates Screen (Neg) Ur Amphetamines Screen (Neg) U Benzodiazepines Scrn (Neg) Urine Cocaine Screen (Neg) U Cannabinoids Screen (Neg) Serum Alcohol (0-5) mg/dL
--- NOTE | 2018-05-19 12:57 | ED ---
HPI - Psych - General Source: patient Mode of arrival: ambulatory - History of Present Illness Duration: constant Relieving factors: medication Associated symptoms: denies other symptoms Treatments prior to arrival: none - General Chief Complaint: Medical Clearance Stated Complaint: Psych Eval Time Seen by Provider: 05/18/18 15:18 - Related Data Home Medications Medication Instructions Recorded Confirmed lisinopril 20 mg PO DAILY 04/16/18 05/18/18 pramipexole 1 mg PO TID 04/24/18 05/18/18 pregabalin [Lyrica] 50 mg PO BID 04/24/18 05/18/18 teriflunomide [Aubagio] 14 mg PO DAILY 04/24/18 05/18/18 quetiapine [Seroquel] 300 mg PO BID 05/18/18 05/18/18 Allergies Allergy/AdvReac Type Severity Reaction Status Date / Time diatrizoate meglumine AdvReac Severe UNKNOWN Verified 05/18/18 15:35 gadobenic acid AdvReac Severe UNKNOWN Verified 05/18/18 15:35 gadodiamide AdvReac Severe UNKNOWN Verified 05/18/18 15:35 gadoteridol AdvReac Severe UNKNOWN Verified 05/18/18 15:35 iodixanol AdvReac Severe UNKNOWN Verified 05/18/18 15:35 iohexol AdvReac Severe UNKNOWN Verified 05/18/18 15:35 PMFSH - History History Provided By: Patient - Medical History Medical History: Medical History (Last Reviewed 05/19/18 @ 12:36 by LAURA Pettit) Bipolar 1 disorder Hypertension Multiple sclerosis - Tobacco History Second Hand Smoke Exposure: Yes Tobacco Use In Past 30 Days: Yes Smoking Status: Current every day smoker Tobacco Type: Cigarettes - Alcohol History How Often Do You Have a Drink Containing Alcohol: Never - Substance Use History Substance History: Past History - Substance Use Type Crack/Cocaine Status: Sustained Remission Route Used: Inhalation Reason for Use: Get High Comment: COCAINE. PATIENT REPORTS BEING BORN A "CRACK BABY." - Travel History Recent Travel in the [facility] Within the Last 8 Weeks: No Recent Travel Out of the Country Within the Last 8 Weeks: No - Immunization History Tetanus Immunization: Unsure Hx Influenza Vaccine This Season: No Psychiatric History - Psychiatric History Psychiatric Treatment History: History of Psychiatric Treatment, History of Hospitalization in a Psychiatric Facility History of Inpatient Treatment: Yes Firearms in Home: No Physical Exam - General Limitations: physical limitation (ambulates with a walker) General appearance: alert Mental Status Examination Appearance: Appropriate Consciousness: Alert Orientation: x4 Motor Activity: Normal gait Speech: Unremarkable Language: Adequate Fund of Knowledge: Adequate Attention and Concentration: Adequate Memory: Unremarkable Mood: Appropriate Affect: Appropriate Thought Process & Associations: Intact Thought Content: Appropriate Hallucination Type: None Delusion Type: None Suicidal Ideation: No Suicidal Plan: No Suicidal Intention: No Homicidal Ideation: Yes (Reporting that she wants to cause serious bodily injury to her daughter in law.) Homicidal Plan: No Homicidal Intention: No Insight: Fair Judgment: Impulsive Initial Documented Vital Signs Temperature 97.5 F L 05/18/18 12:47 Pulse Rate 109 H 05/18/18 12:47 Respiratory Rate 20 05/18/18 12:47 Blood Pressure 102/55 L 05/18/18 12:47 Pulse Oximetry 99 05/18/18 12:47 Last Documented Vital Signs Temperature 98.6 F 05/18/18 22:56 Pulse Rate 85 05/18/18 22:56 Respiratory Rate 16 05/18/18 22:56 Blood Pressure 140/83 05/18/18 22:56 Pulse Oximetry 98 05/18/18 22:56 MDM - Psych - Diagnosis (1) Schizophrenia Status: Acute - Lab Data Result diagrams: 05/18/18 15:45 05/18/18 15:45 - Lab Data Lab Results 05/18/18 05/18/18 05/18/18 Range/Units 15:45 15:45 21:00 WBC 7.9 (4.0-11.0) th/mm3 RBC 4.48 (4.00-5.30) mil/mm3 Hgb 13.5 (11.6-15.3) gm/dL Hct 39.9 (35.0-46.0) % MCV 89.1 (80.0-100.0) fL MCH 30.1 (27.0-34.0) pg MCHC 33.8 (32.0-36.0) % RDW 15.3 (11.6-17.2) % Plt Count 179 (150-450) th/mm3 MPV 9.1 (7.0-11.0) fL Neut % (Auto) 77.7 H (16.0-70.0) % Lymph % (Auto) 13.2 (9.0-44.0) % [place] % (Auto) 8.1 H (0.0-8.0) % Eos % (Auto) 0.6 (0.0-4.0) % Baso % (Auto) 0.4 (0.0-2.0) % Neut # (Auto) 6.1 (1.8-7.7) th/mm3 Lymph # (Auto) 1.0 (1.0-4.8) th/mm3 [place] # (Auto) 0.6 (0.0-0.9) th/mm3 Eos # (Auto) 0.1 (0.0-0.4) th/mm3 Baso # (Auto) 0.0 (0.0-0.2) th/mm3 WBC Differential . Differential Comment Auto diff final Sodium 141 (136-145) meq/L Potassium 4.0 (3.5-5.1) meq/L Chloride 106 (98-107) meq/L Carbon Dioxide 28.2 (21.0-32.0) meq/L Anion Gap 7 (5-15) meq/L BUN 13 (7-18) mg/dL Creatinine 0.72 (0.50-1.00) mg/dL Estimated GFR Greater than 89 (>89) mL/min Random Glucose 113 H (74-106) mg/dL Calcium 8.7 (8.5-10.1) mg/dL Total Bilirubin 0.6 (0.2-1.0) mg/dL AST 50 H (15-37) U/L ALT 138 H (10-53) U/L Alkaline Phosphatase 109 (45-117) U/L Total Protein 7.1 (6.4-8.2) g/dL Albumin 3.5 (3.4-5.0) g/dL TSH 1.240 (0.358-3.740) uIU/mL Urine Color (Yellw/Straw) Urine Clarity (Clear) Urine pH (5.0-8.5) Ur Specific [place] (1.002-1.035) Urine Protein (Neg-Trace) mg/dL Urine Glucose (UA) (Negative) mg/dL Urine Ketones (Negative) mg/dL Urine Occult Blood (Negative) Urine Nitrate (Negative) Urine Bilirubin (Negative) Urine Urobilinogen (Less than 2) mg/dL Ur Leukocyte Esterase (Negative) Urine RBC (0-3) /hpf Urine WBC (0-5) /hpf Ur Squamous Epith Cells (0-5) /hpf Urine Bacteria (None) /hpf Micro UA Comment Urine Culture Comments Urine Opiates Screen Neg (Neg) Ur Barbiturates Screen Neg (Neg) Ur Amphetamines Screen Neg (Neg) U Benzodiazepines Scrn Neg (Neg) Urine Cocaine Screen Neg (Neg) U Cannabinoids Screen Pos H (Neg) Serum Alcohol Less than 3 (0-5) mg/dL 05/18/18 Range/Units 21:00 WBC (4.0-11.0) th/mm3 RBC (4.00-5.30) mil/mm3 Hgb (11.6-15.3) gm/dL Hct (35.0-46.0) % MCV (80.0-100.0) fL MCH (27.0-34.0) pg MCHC (32.0-36.0) % RDW (11.6-17.2) % Plt Count (150-450) th/mm3 MPV (7.0-11.0) fL Neut % (Auto) (16.0-70.0) % Lymph % (Auto) (9.0-44.0) % [place] % (Auto) (0.0-8.0) % Eos % (Auto) (0.0-4.0) % Baso % (Auto) (0.0-2.0) % Neut # (Auto) (1.8-7.7) th/mm3 Lymph # (Auto) (1.0-4.8) th/mm3 [place] # (Auto) (0.0-0.9) th/mm3 Eos # (Auto) (0.0-0.4) th/mm3 Baso # (Auto) (0.0-0.2) th/mm3 WBC Differential Differential Comment Sodium (136-145) meq/L Potassium (3.5-5.1) meq/L Chloride (98-107) meq/L Carbon Dioxide (21.0-32.0) meq/L Anion Gap (5-15) meq/L BUN (7-18) mg/dL Creatinine (0.50-1.00) mg/dL Estimated GFR (>89) mL/min Random Glucose (74-106) mg/dL Calcium (8.5-10.1) mg/dL Total Bilirubin (0.2-1.0) mg/dL AST (15-37) U/L ALT (10-53) U/L Alkaline Phosphatase (45-117) U/L Total Protein (6.4-8.2) g/dL Albumin (3.4-5.0) g/dL TSH (0.358-3.740) uIU/mL Urine Color Yellow (Yellw/Straw) Urine Clarity Clear (Clear) Urine pH 7.0 (5.0-8.5) Ur Specific [place] 1.014 (1.002-1.035) Urine Protein Negative (Neg-Trace) mg/dL Urine Glucose (UA) Negative (Negative) mg/dL Urine Ketones Negative (Negative) mg/dL Urine Occult Blood Negative (Negative) Urine Nitrate Negative (Negative) Urine Bilirubin Negative (Negative) Urine Urobilinogen Less than 2 (Less than 2) mg/dL Ur Leukocyte Esterase Negative (Negative) Urine RBC Less than 1 (0-3) /hpf Urine WBC 1 (0-5) /hpf Ur Squamous Epith Cells 2 (0-5) /hpf Urine Bacteria Rare H (None) /hpf Micro UA Comment Culture not ind Urine Culture Comments Culture not ind Urine Opiates Screen (Neg) Ur Barbiturates Screen (Neg) Ur Amphetamines Screen (Neg) U Benzodiazepines Scrn (Neg) Urine Cocaine Screen (Neg) U Cannabinoids Screen (Neg) Serum Alcohol (0-5) mg/dL
[2018-05-20] MEDS: Lisinopril 20 MG Tablet PO SCH (11:02)
[2018-05-20] MEDS: Acetaminophen 325 MG Tablet PO PRN ×3 (11:18→21:16)
--- NOTE | 2018-05-20 16:12 | P.CON ---
History of Present Illness Service: [facility] Consult date: 05/20/18 Requesting Physician: Erik Omalley Reason for Consult: Medical management Primary Care Provider: Cole Llamas Chief Complaint: "I'm gonna get my Invega, but not that injection" History of Present Illness: 52-year-old AA female with PMH significant for HTN, multiple sclerosis, and schizophrenia who presented to the ER on a voluntary basis for psychiatric evaluation. Apparently patient had been off of her Invega for the past year. She reported hallucinations with racing thoughts and inability to concentrate. She was cleared medically in the ER and admitted to inpatient psychiatry for further recommendations. [facility] consulted to assist with medical management. Nurse reports that patient's Aubagio was continued, however this medication is not on formulary and our pharmacy does not carry this. Patient has complained of pain and is requesting Lortab. Patient is seen and examined in her wheelchair in the day room, she is requesting that the closet in her room be unlocked so that she can apply deodorant. She denies any fevers, chills, N/V/D, cough, SOB, chest pain or increased weakness. Patient complains of bilateral foot pain, states she takes Lortab for her pain. She then tells me that this works for her pain as long as she does not take it with beer because taking it with beer will maker her stomach sick. She is a poor historian and is unable to give me the name of the doctor who prescribes her pain medication for her. Review of Systems All other systems reviewed negative except as stated in HPI PMFSH - History History Provided By: Patient, Medical Record - Medical History Medical History: Medical History (Last Reviewed 05/20/18 @ 15:44 by Sergio Payton) Bipolar 1 disorder Hypertension Multiple sclerosis - Surgical History Surgical History: Surgical History (Last Updated 05/20/18 @ 15:44 by Sergio Payton) Hx of tubal ligation - Tobacco History Second Hand Smoke Exposure: Yes Tobacco Use In Past 30 Days: Yes Smoking Status: Heavy tobacco smoker Tobacco Type: Cigarettes - Alcohol History How Often Do You Have a Drink Containing Alcohol: Never - Substance Use History Substance History: Past History - Substance Use Type Crack/Cocaine Type: Crack Status: Sustained Remission Route Used: Inhalation Reason for Use: Curiosity Comment: COCAINE. PATIENT REPORTS BEING BORN A "CRACK BABY." - Travel History Recent Travel in the [place] Within the Last 8 Weeks: No Recent Travel Out of the Country Within the Last 8 Weeks: No - Immunization History Tetanus Immunization: Unsure Hx Influenza Vaccine This Season: No Medications and Allergies Active Medications: Active Medications Acetaminophen (Tylenol) 650 mg PO Q4H PRN PRN Reason: Pain 1-5 or Temp >101F Last Admin: 05/20/18 11:18 Dose: 650 mg Al Hydrox/Mg Hydrox/Simethicone (Mag-Al Plus Susp Liq) 30 ml PO Q6H PRN PRN Reason: DYSPEPSIA Lisinopril (Prinivil) 20 mg PO DAILY [facility] Last Admin: 05/20/18 11:02 Dose: 20 mg Lorazepam (Ativan) 1 mg PO Q6H PRN PRN Reason: ANXIETY Nicotine (Habitrol 21 Mg Patch.24 Hr) 1 patch T-DERMAL DAILY [facility] Last Admin: 05/20/18 11:03 Dose: 1 patch Non-Formulary Medication (Teriflunomide [Aubagio]) 14 mg PO DAILY [facility] Last Admin: 05/20/18 11:03 Dose: Not Given Paliperidone Palmitate (Invega Er) 6 mg PO DAILY [facility] Patch Removal (Remove Old Patch) 1 each T-DERMAL HS [facility] Allergies Allergy/AdvReac Type Severity Reaction Status Date / Time diatrizoate meglumine AdvReac Severe UNKNOWN Verified 05/18/18 15:35 gadobenic acid AdvReac Severe UNKNOWN Verified 05/18/18 15:35 gadodiamide AdvReac Severe UNKNOWN Verified 05/18/18 15:35 gadoteridol AdvReac Severe UNKNOWN Verified 05/18/18 15:35 iodixanol AdvReac Severe UNKNOWN Verified 05/18/18 15:35 iohexol AdvReac Severe UNKNOWN Verified 05/18/18 15:35 Home Medications Medication Instructions Recorded Confirmed Type lisinopril 20 mg PO DAILY 04/16/18 05/18/18 History pramipexole 1 mg PO TID 04/24/18 05/18/18 History pregabalin [Lyrica] 50 mg PO BID 04/24/18 05/18/18 History teriflunomide [Aubagio] 14 mg PO DAILY 04/24/18 05/18/18 History quetiapine [Seroquel] 300 mg PO BID 05/18/18 05/18/18 History Physical Exam Vital signs: Vital Signs 05/19/18 18:22 05/20/18 06:00 Temperature 98.5 F 98.4 F Pulse Rate 92 H 77 Respiratory Rate 18 18 Blood Pressure 134/105 H 145/87 H Pulse Oximetry 100 96 Intake & Output 05/19/18 05/20/18 05/20/18 18:59 06:59 18:59 Weight 73.028 kg 72.9 kg Other: Weight On Admission 73.028 kg Narrative: GENERAL: Patient is a well nourished, well developed AA female with pressured speech sitting in wheelchair who appears to be in no acute distress. HEAD: Atraumatic. Normocephalic. EYES: Pupils equal round and reactive. NECK: Trachea midline. No JVD. CARDIOVASCULAR: Regular rate and rhythm without murmurs, gallops, or rubs. RESPIRATORY: Clear to auscultation. Breath sounds equal bilaterally. No wheezes , rales, or rhonchi. GASTROINTESTINAL: Abdomen soft, non-tender, nondistended. MUSCULOSKELETAL: Extremities without clubbing, cyanosis, or edema. NEUROLOGICAL: Awake and alert. Cranial nerves II through XII grossly intact. 4 out of 5 muscle strength in bilateral lower extremities. Assessment and Plan - Assessment (1) HTN (hypertension) Code(s): I10 - Essential (primary) hypertension Status: Acute (2) Schizophrenia Code(s): F20.9 - Schizophrenia, unspecified Status: Acute (3) Multiple sclerosis Code(s): G35 - Multiple sclerosis Status: Acute - Plan 52-year-old AA female with PMH significant for HTN, multiple sclerosis, and schizophrenia who presented to the ER on a voluntary basis for psychiatric evaluation. Apparently patient had been off of her Invega for the past year. She reported hallucinations with racing thoughts and inability to concentrate. She was cleared medically in the ER and admitted to inpatient psychiatry for further recommendations. [facility] consulted to assist with medical management. Schizophrenia -Discussed with , Mirapex placed on hold as this could further exacerbate psychiatric symptoms, obtain Neuro imput Multiple sclerosis -Unable to continue home dose of Aubagio as this medication is not on formulary , patient does not have this with her either. - Psych consulting neurology for further recommendations, appreciate assistance. - PT/OT -E-force checked last refill of Hydrocodone-Acetaminophen was on 04/30 for [address] Cole Llamas likely her PCP. - Continue on lower dose of Lortab, recheck LFT's in the am HTN, controlled - Continue home dose of Lisinopril Transaminitis, mild - Recheck labs in the a.m, no statin, consider checking hepatitis panel if still elevated due to known history of drug abuse Cannabis use -Cessation encouraged DVT prophylaxis-ambulation Thank you for this consultation, will continue to follow along. Discussed Condition With: Patient, RN, .
--- NOTE | 2018-05-20 18:53 | P.HPPSY ---
Provisional Diagnosis Admission Date: May 19, 2018 12:07 [place].: Schizophrenia Competence Certification of Person's Competence To Provide Express and Informed Consent I have personally examined Jeanne Figueroa, a person being served at [facility] onMay 20, 2018 1839. Express and informed consent means consent voluntarily given in writing, by a competent person, after sufficient explanation and disclosure of the subject matter involved to enable the person to make a knowing and willful decision without any element of force, fraud, deceit, duress, or other form of constraint or coercion. This person is 18 years of age or older, is not now known to be incompetent to consent to treatment with a guardian advocate, and does not have a health care surrogate or proxy currently making medical treatment decisions. I have found this person to be one of the following: [xxx] Competent to provide express and informed consent, as defined above, for voluntary admission to this facility and is competent to provide express and informed consent for treatment. He/she has the consistent capacity to make well reasoned, willful, and knowing decisions concerning his or her medical or mental health treatment. The person fully and consistently understands the purpose of the admission for examination/placement and is fully capable of personally exercising all rights assured under [place] Incompetent to provide express and informed consent to voluntary admission, and this is incompetent to provide express and informed consent to treatment. The person must be transferred to involuntary status and a petition for a guardian advocate filed with the Circuit Court. [] Refusing to provide express and informed consent to voluntary admission but is competent to provide express and informed consent for treatment. The person must be discharged or transferred to involuntary status. Form shall be completed within 24 hours of a person's arrival at the receiving facility and filed in the clinical record of each person: 1. Admitted on a voluntary basis 2. Permitted to provide express and informed consent to his/her own treatment 3. Allowed to transfer from involuntary to voluntary status 4. Prior to permitting a person to consent to his or her own treatment after having been previously found incompetent to consent to treatment. History of Present Illness Capacity: Has capacity History of Present Illness: Patient is a 52-year-old -[place]ian woman, single, domiciled with friend, unemployed, with a past psychiatric history of schizophrenia, multiple psychiatric admissions, prior suicide attempt, with a past medical history significant for hypertension, asthma, multiple sclerosis, who presented to the ED voluntarily due to increased hallucinations and noncompliance with medications which patient was admitted under Bella act for psychosis and transferred to the inpatient psychiatry for further evaluation and management. Discussion with nursing staff reported the patient has a cooperative and endorsing auditory hallucinations. Patient was found participating group activity noted B, cooperative. Patient states that she is to the Bible , noted to have pressured speech, religiously preoccupied and endorsing auditory hallucinations. Patient states that she was previously any local hospital and "wrapping berta Deleon" it was discharged and transported to homeless senior living. Patient noted be disorganized and time of events seemed to be inaccurate. Patient states that she has been having auditory hallucinations to hurt other people but denying any suicidal or homicidal ideations. Patient denies any paranoid delusions at this time. Patient agrees to resume antipsychotic treatment for her ongoing symptoms. Family psychiatric history: Cousin with schizophrenia, no suicides in the family Substance use history: Tobacco use(+), denies any alcohol or drug use. Patient reports remote history of crack cocaine use years ago. Past psychiatric history: Previous psychiatric diagnoses schizophrenia, multiple psychiatric admissions, reports prior suicide attempt, reports outpatient mental health follow-up at [facility] and previously on a Bella along with quetiapine which she refuses to resume at this time. Past medical history: Asthma, hypertension, multiple sclerosis Allergies: Benadryl diatrizoate meglumine, gadolinium [place] acid, gadodiamide , gadoteridol, iodixanol, iohexol Social history: Single, reports staying with a friend. - Inpatient Certification I certify that the inpatient services were ordered in accordance with Medicare regulations governing the order. This includes certification that hospital inpatient services are reasonable and necessary and in the case of services not specified as inpatient-only under 42 CFR 419.22(n), that they are appropriately provided as inpatient services in accordance to with the 2-midnight benchmark under 43 CFR 412.3(e) I certify that inpatient psychiatric hospital services are medically necessary. Evaluation and treatment and/or diagnostic testing are expected to improve the patient's condition. The patient needs on a daily basis, active treatment furnished directly by or requiring the supervision of inpatient psychiatric facility personnel. Estimated Total Length of Stay (Days): 7 Plans for Post Hospital Care: Not yet determined Review of Systems All other systems reviewed negative except as stated in HPI PMFSH - History History Provided By: Patient, Medical Record - Medical History Medical History: Medical History (Last Reviewed 05/20/18 @ 15:44 by Sergio Payton) Bipolar 1 disorder Hypertension Multiple sclerosis - Surgical History Surgical History: Surgical History (Last Updated 05/20/18 @ 15:44 by Sergio Payton) Hx of tubal ligation - Tobacco History Second Hand Smoke Exposure: Yes Tobacco Use In Past 30 Days: Yes Smoking Status: Heavy tobacco smoker Tobacco Type: Cigarettes - Alcohol History How Often Do You Have a Drink Containing Alcohol: Never - Substance Use History Substance History: Past History - Substance Use Type Crack/Cocaine Type: Crack Status: Sustained Remission Route Used: Inhalation Reason for Use: Curiosity Comment: COCAINE. PATIENT REPORTS BEING BORN A "CRACK BABY." - Travel History Recent Travel in the [facility] Within the Last 8 Weeks: No Recent Travel Out of the Country Within the Last 8 Weeks: No - Immunization History Tetanus Immunization: Unsure Hx Influenza Vaccine This Season: No Quality Measures - Psychiatric History Violence risk to others in the last 6 months: Elevated due to command auditory hallucinations to hurt other people Violence risk to self in the last 6 months: Low - Substance Abuse History Drug or alcohol use in the past 12 months: See HPI - Patient Strengths Patient's strengths (minimum of 2): Verbal and communicative Medications and Allergies Active Medications: Active Medications Acetaminophen (Tylenol) 650 mg PO Q4H PRN PRN Reason: Pain <2 or Temp >101F Last Admin: 05/20/18 16:21 Dose: 650 mg Hydrocodone Bitart/Acetaminophen ([place] 7.5/325) 1 tab PO Q6H PRN PRN Reason: PAIN 6-10;IF UNABLE TO TAKE PO Hydrocodone Bitart/Acetaminophen ([place] 5/325) 1 tab PO Q6H PRN PRN Reason: Pain 2-5 Al Hydrox/Mg Hydrox/Simethicone (Mag-Al Plus Susp Liq) 30 ml PO Q6H PRN PRN Reason: DYSPEPSIA Lisinopril (Prinivil) 20 mg PO DAILY [facility] Last Admin: 05/20/18 11:02 Dose: 20 mg Lorazepam (Ativan) 1 mg PO Q6H PRN PRN Reason: ANXIETY Nicotine (Habitrol 21 Mg Patch.24 Hr) 1 patch T-DERMAL DAILY [facility] Last Admin: 05/20/18 11:03 Dose: 1 patch Non-Formulary Medication (Teriflunomide [Aubagio]) 14 mg PO DAILY [facility] Last Admin: 05/20/18 11:03 Dose: Not Given Paliperidone Palmitate (Invega Er) 6 mg PO DAILY [facility] Last Admin: 05/20/18 16:20 Dose: 6 mg Patch Removal (Remove Old Patch) 1 each T-DERMAL HS [facility] Allergies Allergy/AdvReac Type Severity Reaction Status Date / Time diatrizoate meglumine AdvReac Severe UNKNOWN Verified 05/18/18 15:35 gadobenic acid AdvReac Severe UNKNOWN Verified 05/18/18 15:35 gadodiamide AdvReac Severe UNKNOWN Verified 05/18/18 15:35 gadoteridol AdvReac Severe UNKNOWN Verified 05/18/18 15:35 iodixanol AdvReac Severe UNKNOWN Verified 05/18/18 15:35 iohexol AdvReac Severe UNKNOWN Verified 05/18/18 15:35 Home Medications Medication Instructions Recorded Confirmed Type lisinopril 20 mg PO DAILY 04/16/18 05/18/18 History pramipexole 1 mg PO TID 04/24/18 05/18/18 History pregabalin [Lyrica] 50 mg PO BID 04/24/18 05/18/18 History teriflunomide [Aubagio] 14 mg PO DAILY 04/24/18 05/18/18 History quetiapine [Seroquel] 300 mg PO BID 05/18/18 05/18/18 History Results - Labs CBC & Chem 7: 05/18/18 15:45 05/18/18 15:45 Exam Vital signs: Vital Signs 05/20/18 06:00 Temperature 98.4 F Pulse Rate 77 Respiratory Rate 18 Blood Pressure 145/87 H Pulse Oximetry 96 Intake & Output 05/19/18 05/20/18 05/20/18 18:59 06:59 18:59 Weight 73.028 kg 72.9 kg Other: Weight On Admission 73.028 kg Narrative: Patient not noted to be in acute distress although noted with difficulty with ambulation, walking with walker, no other gross motor abnormalities, no signs of tremor or EPS, no signs of psychomotor agitation or retardation. - Constitutional no acute distress, cooperative Mental Status Examination Appearance: Appropriate Consciousness: Alert Orientation: x4 Motor Activity: Abnormal gait (Uses walker) Speech: Pressured Language: Adequate Fund of Knowledge: Inadequate Attention and Concentration: Easily distracted Memory: Impaired Mood: Appropriate Affect: Labile Thought Process & Associations: Disorganized Thought Content: Hallucinations, Preoccupations (Moravian preoccupation), Other (Flight of ideas) Hallucination Type: Auditory Delusion Type: None Suicidal Ideation: No Suicidal Plan: No Suicidal Intention: No Homicidal Ideation: Yes (Reporting that she wants to cause serious bodily injury to her daughter in law.) Homicidal Plan: No Homicidal Intention: No Insight: Fair Judgment: Impulsive Assessment and Plan - Assessment (1) Schizophrenia Code(s): F20.9 - Schizophrenia, unspecified Status: Acute - Plan Plan: Estimated LOS: [] days Patient is a 52-year-old -[place]ian woman who carries a diagnosis schizophrenia, multiple prior psychiatric admissions, previous suicide attempt, possible history significant for multiple sclerosis, hypertension, asthma, who was admitted under voluntary admission for evaluation of auditory hallucinations commanding her to hurt other people as well as patient having expressed homicidal ideations toward her daughter, initially which patient this time requires inpatient psychiatric stabilization. Patient currently on pramipexole may exacerbate her psychotic symptoms at it is a dominant agonist which will be on hold for now. We will consult neurology for recommendations for management of multiple sclerosis as inpatient pharmacy does not carry teriflunomide. We will resume patient on paliperidone as patient had done well on this medication in past admission. Patient refusing quetiapine at this time. Hospitalist input appreciated. PT/OT consult requested for evaluation. Monitor mood and behavior. Discharge planning in progress. Justification for Continued Inpatient Stay: At risk for further decompensation if at lower level of care.
[2018-05-20] MEDS: REMOVE OLD NICODERM (NICOTINE) PATCH T-DERMAL SCH (23:37)
[2018-05-21 09:08] LABS: Anion Gap 6 meq/L (5-15); Blood Urea Nitrogen 9 mg/dL (7-18); Calcium 8.2 mg/dL (8.5-10.1); Carbon Dioxide 26.9 meq/L (21.0-32.0); Chloride 109 meq/L (98-107); Cholesterol 167 mg/dL (120-200); Glomerular Filtration Rate Greater Than 89 mL/min (>89); Glucose,Random 85 mg/dL (74-106); Sodium 142 meq/L (136-145); Triglycerides 56 mg/dL (42-150)
[2018-05-21 09:10] LABS: Albumin 3.2 g/dL (3.4-5.0)
[2018-05-21 09:11] LABS: Chol/HDL Ratio 2.78 Ratio; HDL Cholesterol 59.9 mg/dL (40.0-60.0); LDL Cholesterol,Calculated 96 mg/dL (0-99)
[2018-05-21 09:12] LABS: Total Protein 6.6 g/dL (6.4-8.2)
[2018-05-21] MEDS: Lisinopril 20 MG Tablet PO SCH (09:43)
[2018-05-21 16:54] LABS: Hemoglobin A1c 5.8 % (4.3-6.0)
--- NOTE | 2018-05-21 17:31 | P.PN ---
Subjective Interval history: Follow-up visit HTN, MS, schizophrenia. Patient seen and examined today. Patient is hyperverbal. Reports she is doing okay. She is still trying to get her MS medication from home. Discussed importance of taking that medication is nonformulary in our system. States that she will get that today. Otherwise, Denies pain and discomfort. Denies SOB/ dyspnea. Denies chest pain, palpitations, headaches, dizziness. Denies fevers, chills, n/v/d. Denies dysuria. Physical Exam Vital signs: Vital Signs 05/20/18 18:00 05/21/18 00:50 05/21/18 06:52 Temperature 98.1 F 98.2 F Pulse Rate 93 H 70 71 Respiratory Rate 16 16 17 Blood Pressure 119/59 L 142/77 H 130/67 Pulse Oximetry 100 100 97 Narrative: GENERAL: Patient is a well nourished, well developed AA female with pressured speech sitting in wheelchair who appears to be in no acute distress. HEAD: Atraumatic. Normocephalic. EYES: Pupils equal round and reactive. NECK: Trachea midline. No JVD. CARDIOVASCULAR: Regular rate and rhythm without murmurs, gallops, or rubs. RESPIRATORY: Clear to auscultation. Breath sounds equal bilaterally. No wheezes , rales, or rhonchi. GASTROINTESTINAL: Abdomen soft, non-tender, nondistended. MUSCULOSKELETAL: Extremities without clubbing, cyanosis, or edema. Kyphosis noted. NEUROLOGICAL: Awake and alert. Cranial nerves II through XII grossly intact. 4 out of 5 muscle strength in bilateral lower extremities. Results - Labs CBC & Chem 7: 05/18/18 15:45 05/21/18 07:44 Laboratory Results - last 24 hr 05/21/18 05/21/18 07:44 07:44 Sodium 142 Potassium 4.0 Chloride 109 H Carbon Dioxide 26.9 Anion Gap 6 BUN 9 Creatinine 0.48 L Estimated GFR Greater than 89 Random Glucose 85 Calcium 8.2 L Total Bilirubin 0.5 Direct Bilirubin 0.1 Indirect Bilirubin 0.4 AST 53 H ALT 208 H Alkaline Phosphatase 105 Total Protein 6.6 Albumin 3.2 L Triglycerides 56 Cholesterol 167 LDL Cholesterol, Calc 96 HDL Cholesterol 59.9 Cholesterol/HDL Ratio 2.78 Assessment and Plan - Assessment (1) HTN (hypertension) Code(s): I10 - Essential (primary) hypertension Status: Acute (2) Schizophrenia Code(s): F20.9 - Schizophrenia, unspecified Status: Acute (3) Multiple sclerosis Code(s): G35 - Multiple sclerosis Status: Acute - Plan 52-year-old AA female with PMH significant for HTN, multiple sclerosis, and schizophrenia who presented to the ER on a voluntary basis for psychiatric evaluation. Apparently patient had been off of her Invega for the past year. She reported hallucinations with racing thoughts and inability to concentrate. She was cleared medically in the ER and admitted to inpatient psychiatry for further recommendations. [facility] consulted to assist with medical management. Schizophrenia -Managed by psychiatry team. -On hold Multiple sclerosis -Unable to continue home dose of Aubagio as this medication is not on formulary, patient does not have this with her but will get the medication from family member -Psych consulting neurology for further recommendations, appreciate assistance. -PT/OT -E-force checked last refill of Hydrocodone-Acetaminophen was on 04/30 for [address] Cole Llamas likely her PCP. -Continue on lower dose of Lortab -ALT 138 --> 208 -AST 50 -->53 HTN, controlled -Continue home dose of Lisinopril Transaminitis, mild -Not on statin -Avoid hepatotoxin -Monitor LFTs -ALT 138 --> 208 -AST 50 -->53 Cannabis use -Cessation encouraged DVT prophylaxis-ambulation Code Status: Full code Discussed Condition With: Patient, nurse Discharge Planning: DC disposition by primary team
--- NOTE | 2018-05-21 19:59 | P.PNPSY ---
Subjective Remarks: Patient seen for follow, chart reviewed. Calm and cooperative. He continues to have some disorganization during interview discussion nursing staff reported the patient has been attending groups, slept well last evening. Patient was found in day room noted to be noted with slightly less pressured speech today. Patient states that he is feeling "good on the Viagra, I mean in Invega". She is noted to have good affect, denying any present symptoms, continues report that she talks to her and states this well putting her hand on the Bible but denies having had any voices from God. Review of Systems All other systems reviewed negative except as stated in HPI Mental Status Examination Appearance: Appropriate Consciousness: Alert Orientation: x4 Motor Activity: Abnormal gait (Uses walker) Speech: Pressured (Lessening) Language: Adequate Fund of Knowledge: Inadequate Attention and Concentration: Easily distracted Memory: Impaired Mood: Appropriate Affect: Labile Thought Process & Associations: Disorganized Thought Content: Hallucinations (Denies), Preoccupations (Christian preoccupation), Other (Flight of ideas) Hallucination Type: Auditory ( denies) Delusion Type: None Suicidal Ideation: No Suicidal Plan: No Suicidal Intention: No Homicidal Ideation: Yes (Reporting that she wants to cause serious bodily injury to her daughter in law.) Homicidal Plan: No Homicidal Intention: No Insight: Fair Judgment: Impulsive Assessment and Plan - Assessment (1) Schizophrenia Code(s): F20.9 - Schizophrenia, unspecified Status: Acute - Plan Plan: Patient continues to have some disorganization during interview, continues to have some anglican preoccupation but denying any perceptual disturbances. We will continue current treatment. Neurology consult pending. Continue to monitor mood and behavior. Discharge planning in progress. Justification for Continued Inpatient Stay: At risk of further decompensation a lower level of care.
[2018-05-21] MEDS: REMOVE OLD NICODERM (NICOTINE) PATCH T-DERMAL SCH (22:18)
[2018-05-22 03:16] LABS: Hepatitis A IgM Antibody Nonreactive (Nonreactive); Hepatitits B Surface Antigen Nonreactive (Nonreactive)
[2018-05-22] MEDS: Lisinopril 20 MG Tablet PO SCH (08:29)
[2018-05-22] MEDS: Pregabalin 75 MG Capsule PO SCH ×2 (10:14→21:37)
--- NOTE | 2018-05-22 10:31 | MB ---
cc: Dante Villarreal MD, PhD DATE: 05/22/2018 REASON FOR CONSULTATION: History of multiple sclerosis. HISTORY OF PRESENT ILLNESS: This is a 52-year-old female who has a history of multiple sclerosis, she states diagnosed about 3 years ago when she had positive MRI studies of the brain and cervical spinal cord showing plaques as well as spinal fluid analysis at [facility]. She states she has been on Aubagio. Nonetheless, she feels that she has had progressive weakness of both upper and lower extremities. She has severe pain in the lower extremities for which she takes Lyrica. She states she has a neurologist in the [facility]. She is now admitted to the psychiatry service with a history of schizophrenia. She reported hallucinations with racing thoughts and inability to concentrate. PAST MEDICAL HISTORY: History of hypertension, schizophrenia, multiple sclerosis. CURRENT MEDICATIONS: 1. Tylenol. 2. [place] as needed for pain. 3. Prinivil. 4. Ativan. 5. Habitrol. 6. Aubagio 14 mg daily. 7. Invega ER 6 mg daily. PHYSICAL EXAMINATION: VITAL SIGNS: Her blood pressure is 160/87, pulse 97, respiratory rate of 16, temperature 97.9 degrees. HIGHER CORTICAL FUNCTION: She is alert and oriented x3. Speech is fluent. She follows commands well. Cranial nerves are intact. There is no I and O. No Sebastian Lyndsey pupil. MOTOR: She has 5/5 strength of all major groups in both upper extremities. She is weak in the lower extremities, rated at 4/5 at the iliopsoas, 4+/5 quadriceps, 4/5 hamstring symmetric, 4/5 tib anterior symmetric. Reflexes 1+ symmetric with no Babinski sign present. LABORATORY DATA: The white count is 7900, hemoglobin 13.5, hematocrit 39.9%, platelet count 179,000. Sodium is 141, potassium is 4, chloride 106, CO2 of 28, BUN is 13, creatinine 0.72, GFR is greater than 89, glucose 113, AST 50, ALT 138, triglycerides 56, cholesterol 167, LDL 96, HDL 59.9. Urinalysis: pH is 7, specific gravity 1.014. There is 1 WBC present. Tox screen positive for cannabis. IMPRESSION: Multiple sclerosis by history. She feels she has been overall stable on the Aubagio, although there has been some progression of the lower extremity weakness. RECOMMENDATION: I would like to obtain an MRI of the brain and cervical spine to evaluate for MS plaques. Also would recommend starting the patient back on Lyrica for her neuropathic pain. ADDENDUM: Ms. Figueroa's AST and ALT are elevated. Would recommend following this. If no other etiology is identified, this may be a result of the Aubagio and may need to hold the Aubagio in the future, with following the LFTs. Dante Villarreal MD, PhD DAVID/annie , 08:45 AM , 08:52 AM
--- NOTE | 2018-05-22 12:30 | P.PNPSY ---
Subjective Remarks: Patient seen for follow, chart reviewed. Discussion nursing staff reported the patient scheduled for MRI today, continues to talk about wanting to kill all the rapists and measures but noted to be pleasant and cooperative. Patient was found ambulating in her walker noted B, cooperative. Patient agrees with imaging studies as ordered by neurology consult recommendations. Patient continues to have some disorganization but able to maintain more engagement on topic during interview today. Patient continues to have tangentiality and mandaen preoccupation stating that she is to the Bible. He denies any thoughts of hurting anyone, states that the auditory hallucinations have been lessening. Review of Systems All other systems reviewed negative except as stated in HPI Mental Status Examination Appearance: Appropriate Consciousness: Alert Orientation: x4 Motor Activity: Abnormal gait (Uses walker) Speech: Pressured (Lessening) Language: Adequate Fund of Knowledge: Inadequate Attention and Concentration: Easily distracted Memory: Impaired Mood: Appropriate Affect: Labile Thought Process & Associations: Disorganized (Lessening slightly) Thought Content: Hallucinations (Denies), Preoccupations (Yazidism preoccupation) Hallucination Type: Auditory ( denies) Delusion Type: None Suicidal Ideation: No Suicidal Plan: No Suicidal Intention: No Homicidal Ideation: No Homicidal Plan: No Homicidal Intention: No Insight: Fair Judgment: Impulsive Assessment and Plan - Assessment (1) Schizophrenia Code(s): F20.9 - Schizophrenia, unspecified Status: Acute - Plan Plan: Patient continues with some disorganization, but noted with good affect, denying feeling depressed, denying any suicidal homicidal ideations. Patient continues to have auditory hallucinations which are improving. We will continue current treatment. We will continue to monitor mood and behavior. Neurology consult input appreciated. Discharge planning in progress. Justification for Continued Inpatient Stay: At risk for further decompensation if at lower level of care
--- NOTE | 2018-05-22 14:26 | P.PN ---
Subjective Interval history: Follow-up visit HTN, MS, schizophrenia. Patient seen and examined today. Patient is hyperverbal. Reports she is doing good. Denies SOB/ dyspnea. Denies chest pain, palpitations, headaches, dizziness. Denies fevers, chills, n/ v/d. Denies dysuria. Physical Exam Vital signs: Vital Signs 05/21/18 17:54 05/22/18 06:00 Temperature 97.9 F 98.2 F Pulse Rate 97 H 60 Respiratory Rate 16 16 Blood Pressure 160/87 H 109/82 Pulse Oximetry 99 100 Narrative: GENERAL: Patient is a well nourished, well developed AA female with pressured speech sitting in wheelchair who appears to be in no acute distress. HEAD: Atraumatic. Normocephalic. EYES: Pupils equal round and reactive. NECK: Trachea midline. No JVD. CARDIOVASCULAR: Regular rate and rhythm without murmurs, gallops, or rubs. RESPIRATORY: Clear to auscultation. Breath sounds equal bilaterally. No wheezes , rales, or rhonchi. GASTROINTESTINAL: Abdomen soft, non-tender, nondistended. MUSCULOSKELETAL: Extremities without clubbing, cyanosis, or edema. Kyphosis noted. NEUROLOGICAL: Awake and alert. 4 out of 5 muscle strength in bilateral lower extremities. Results - Labs CBC & Chem 7: 05/18/18 15:45 05/21/18 07:44 Laboratory Results - last 24 hr 05/21/18 05/21/18 07:44 17:28 Hemoglobin A1c 5.8 Hepatitis A IgM Ab Nonreactive Hep Bs Antigen Nonreactive Hep B Core IgM Ab Nonreactive Hep C IgG Ab Nonreactive Assessment and Plan - Assessment (1) HTN (hypertension) Code(s): I10 - Essential (primary) hypertension Status: Acute (2) Schizophrenia Code(s): F20.9 - Schizophrenia, unspecified Status: Acute (3) Multiple sclerosis Code(s): G35 - Multiple sclerosis Status: Acute - Plan 52-year-old AA female with PMH significant for HTN, multiple sclerosis, and schizophrenia who presented to the ER on a voluntary basis for psychiatric evaluation. Apparently patient had been off of her Invega for the past year. She reported hallucinations with racing thoughts and inability to concentrate. She was cleared medically in the ER and admitted to inpatient psychiatry for further recommendations. [facility] consulted to assist with medical management. Schizophrenia -Managed by psychiatry team. -On hold Multiple sclerosis -Unable to continue home dose of Aubagio as this medication is not on formulary, patient does not have this with her but will get the medication from family member -Psych consulting neurology for further recommendations, appreciate assistance. -PT/OT -E-force checked last refill of Hydrocodone-Acetaminophen was on 04/30 for [address] Cole Llamas likely her PCP. -Continue on lower dose of Lortab -Tolerating HTN, controlled -Continue home dose of Lisinopril Transaminitis, mild -Not on statin -Avoid hepatotoxin -Monitor LFTs -ALT 138 --> 208 -AST 50 -->53 -Recheck CMP Cannabis use -Cessation encouraged DVT prophylaxis-ambulation Code Status: Full code Discussed Condition With: Patient, nurse Discharge Planning: DC disposition by primary team
[2018-05-22] MEDS ORDERED: Gadobutrol PF 7.5 MMOL/7.5 ML Vial (for RAD) IV.SIG ONE (21:33)
--- NOTE | 2018-05-22 21:38 | MR ---
EXAM DATE: 05/22/2018 9:31 PM EDT AGE/SEX: 52 years / Female INDICATIONS: . Weakness in arms and legs. Hx of M.S. CLINICAL DATA: This is the patient's subsequent encounter. Patient reports that signs and symptoms h ave been present for 4 - 6 days and indicates a pain score of 0/10. MEDICAL/SURGICAL HISTORY: Multiple sclerosis. . D&C COMPARISON: No prior exams available for comparison. TECHNIQUE: Multiplanar, multisequence MRI examination of the cervical spine was performed without an d with 7 ml Gadavist (gadobutrol) contrast as a single exam dose. FINDINGS: Vertebrae: Normal vertebral body height. Minimal patchy increased signal in the upper cervical spine that could be a demyelinating process. Alignment: Normal. Cord: Normal configuration and signal. Post Fossa: The cerebellar tonsils are normal in position. Post Contrast: No abnormal areas of enhancement are seen. C2-C3: The thecal sac has a normal configuration. There is no evidence of disc herniation or spinal canal stenosis. The neural foramina are patent bilaterally. C3-C4: Mild uncinate ridging with minimal left-sided neural foraminal encroachment C4-C5: Mild uncinate ridging without spinal stenosis. C5-C6: Mild uncinate ridging without significant spinal stenosis. Neural foramen are adequate. C6-C7: Mild uncinate ridging without spinal stenosis. C7-T1: No epidural impressions seen. CONCLUSION: 1. Minimal increased signal in the upper cervical cord at the C2-C3 level would be consistent with a demyelinating process. 2. There is no cord expansion to suggest neoplastic process. 3. This can easily be followed by MRI. Electronically signed by: Andrae Jeronimo MD 05/22/2018 9:36 PM EDT
--- NOTE | 2018-05-22 21:40 | MR ---
EXAM DATE: 05/22/2018 9:15 PM EDT AGE/SEX: 52 years / Female INDICATIONS: . Weakness in arms and Legs. Hx of M.S. CLINICAL DATA: This is the patient's subsequent encounter. Patient reports that signs and symptoms h ave been present for 4 - 6 days and indicates a pain score of 0/10. MEDICAL/SURGICAL HISTORY: Multiple sclerosis. . D&C COMPARISON: No prior exams available for comparison. TECHNIQUE: Multiplanar, multisequence examination of the brain was performed without and with 7 ml Ga davist (gadobutrol) contrast as a single exam dose. FINDINGS: Ventricles are normal size. There are very minimal scattered areas of high signal intensity in the pe riventricular white matter would be consistent with a demyelinating process. There is no parenchymal hemorrhage acute infarction. No extra-axial fluid collections appreciated. Th ere is no abnormal contrast enhancement. Ventricular size is appropriate. Posterior fossa appears normal. Orbits and perineal sinuses are unremarkable. CONCLUSION: Periventricular white matter changes that would be consistent with a pneumonic process. There is enhancement to suggest an acute process at this time. Posterior fossa is unremarkable. Electronically signed by: Andrea Jeronimo MD 05/22/2018 9:39 PM EDT
[2018-05-23 08:31] LABS: Albumin 3.5 g/dL (3.4-5.0); Anion Gap 6 meq/L (5-15); Aspartate Aminotransferase 29 U/L (15-37); Blood Urea Nitrogen 10 mg/dL (7-18); Calcium 8.6 mg/dL (8.5-10.1); Carbon Dioxide 27.6 meq/L (21.0-32.0); Chloride 107 meq/L (98-107); Glomerular Filtration Rate Greater Than 89 mL/min (>89); Glucose,Random 80 mg/dL (74-106); Sodium 141 meq/L (136-145)
[2018-05-23 08:35] LABS: Alanine Aminotransferase 137 U/L (10-53); Alkaline Phosphatase 113 U/L (45-117); Total Protein 7.3 g/dL (6.4-8.2)
[2018-05-23] MEDS: Pregabalin 75 MG Capsule PO SCH ×2 (09:02→21:45)
[2018-05-23] MEDS: Lisinopril 20 MG Tablet PO SCH (09:02)
--- NOTE | 2018-05-23 14:00 | P.PNPSY ---
Subjective Remarks: Patient seen for follow, chart reviewed. Discussion nursing staff reported the patient showered today, hyperverbal still, attending groups, no auditory hallucinations. Patient was found sitting hospital chair noted B, cooperative. Patient states that he has had some difficulty sleep last evening, her mood has been "calm" denies any suicidal homicidal ideations although noted to have some tangentiality and flight of ideas and stating that she would fight anyone that attempts to hurt her. Patient has some disorganization at times but is able to maintain adequate attention with mostly appropriate responses. She denies any auditory hallucinations at this time. Review of Systems All other systems reviewed negative except as stated in HPI Mental Status Examination Appearance: Appropriate Consciousness: Alert Orientation: x4 Motor Activity: Abnormal gait (Uses walker) Speech: Pressured (Lessening) Language: Adequate Fund of Knowledge: Inadequate Attention and Concentration: Easily distracted Memory: Impaired Mood: Appropriate Affect: Labile Thought Process & Associations: Disorganized (Lessening slightly) Thought Content: Hallucinations (Denies), Preoccupations (Spiritism preoccupation) Hallucination Type: Auditory ( denies) Delusion Type: None Suicidal Ideation: No Suicidal Plan: No Suicidal Intention: No Homicidal Ideation: No Homicidal Plan: No Homicidal Intention: No Insight: Fair Judgment: Impulsive Assessment and Plan - Assessment (1) Schizophrenia Code(s): F20.9 - Schizophrenia, unspecified Status: Acute - Plan Plan: Patient this time continues with some disorganization, flight of ideas, tangentiality, denying any auditory hallucinations today. We will continue to increase paliperidone to 9 mg p.o. daily for psychosis. Neurology input appreciated. Hospitalist input appreciated. Continue rest of medications. Continue to monitor mood and behavior. Discharge planning a progress. Justification for Continued Inpatient Stay: At risk for decompensation a lower level care.
--- NOTE | 2018-05-23 15:53 | P.PN ---
Subjective Interval history: Follow-up visit HTN, MS, schizophrenia. Patient seen and examined today. Patient is hyperverbal. Reports she is doing good. States that she is going to ask her daughter to actually get her MS medication at her friend's home as her reeling machine setup operator is unable to get it. Denies SOB/ dyspnea. Denies chest pain, palpitations, headaches, dizziness. Denies fevers, chills, n/v/d. Denies dysuria. Physical Exam Vital signs: Vital Signs 05/22/18 17:49 05/23/18 05:33 Temperature 97.1 F L 97.7 F Pulse Rate 78 81 Respiratory Rate 16 18 Blood Pressure 149/74 H 137/73 Pulse Oximetry 97 98 Intake & Output 05/22/18 05/23/18 05/23/18 18:59 06:59 18:59 Intake Total 240 / 240 Balance 240 / 240 Weight 68.2 kg Intake: Oral 240 / 240 Narrative: GENERAL: Patient is a well nourished, well developed AA female with pressured speech sitting in wheelchair who appears to be in no acute distress. HEAD: Atraumatic. Normocephalic. EYES: Pupils equal round and reactive. NECK: Trachea midline. No JVD. CARDIOVASCULAR: Regular rate and rhythm without murmurs, gallops, or rubs. RESPIRATORY: Clear to auscultation. Breath sounds equal bilaterally. No wheezes , rales, or rhonchi. GASTROINTESTINAL: Abdomen soft, non-tender, nondistended. MUSCULOSKELETAL: Extremities without clubbing, cyanosis, or edema. Kyphosis noted. NEUROLOGICAL: Awake and alert. 4 out of 5 muscle strength in bilateral lower extremities. Ambulatory with walker use. Results - Labs CBC & Chem 7: 05/18/18 15:45 05/23/18 07:12 Laboratory Results - last 24 hr 05/23/18 05/23/18 06:18 07:12 Sodium 141 Potassium 4.0 Chloride 107 Carbon Dioxide 27.6 Anion Gap 6 BUN 10 Creatinine 0.56 Estimated GFR Greater than 89 POC Glucose 121 H Random Glucose 80 Calcium 8.6 Total Bilirubin 0.4 AST 29 ALT 137 H Alkaline Phosphatase 113 Total Protein 7.3 D Albumin 3.5 - Imaging Impressions Cervical Spine MRI 05/22/18 00:00 CONCLUSION: 1. Minimal increased signal in the upper cervical cord at the C2-C3 level would be consistent with a demyelinating process. 2. There is no cord expansion to suggest neoplastic process. 3. This can easily be followed by MRI. Head MRI 05/22/18 00:00 CONCLUSION: Periventricular white matter changes that would be consistent with a pneumonic process. There is enhancement to suggest an acute process at this time. Posterior fossa is unremarkable. Assessment and Plan - Assessment (1) HTN (hypertension) Code(s): I10 - Essential (primary) hypertension Status: Acute (2) Schizophrenia Code(s): F20.9 - Schizophrenia, unspecified Status: Acute (3) Multiple sclerosis Code(s): G35 - Multiple sclerosis Status: Acute - Plan 52-year-old AA female with PMH significant for HTN, multiple sclerosis, and schizophrenia who presented to the ER on a voluntary basis for psychiatric evaluation. Apparently patient had been off of her Invega for the past year. She reported hallucinations with racing thoughts and inability to concentrate. She was cleared medically in the ER and admitted to inpatient psychiatry for further recommendations. [facility] consulted to assist with medical management. Schizophrenia -Managed by psychiatry team. -On hold Multiple sclerosis -Unable to continue home dose of Aubagio as this medication is not on formulary, patient does not have this with her but will get the medication from family member. Has been trying to get hold of the family member to get the medication from home. Will Hold for now. -PT/OT eval and treat -E-force checked last refill of Hydrocodone-Acetaminophen 10/325 was on 04/30 for [address] Cole Llamas likely her PCP. -Continue on lower dose of Lortab -Neurology consulted, Dr. Villarreal. Appreciate recommendation. Recommends MRI in the cervical MRI and to place patient back on Lyrica for neuropathic pain. Also recommending holding Aubagio as the liver enzymes are elevated -Head MRI was done and showed periventricular white matter changes that would be consistent with a pneumonic process. There is no parenchymal hemorrhage acute infarction there is no abnormal contrast enhancement. Ventricular size is appropriate. Posterior fossa is unremarkable. -Cervical spine CT showed minimal increased signal in the upper cervical cord at the C2-C3 level would be consistent with a demyelinating process. There is no cord expansion to suggest neoplastic process. HTN, controlled -Continue home dose of Lisinopril Transaminitis, mild -Avoid hepatotoxin, possibly secondary to Aubagio use -ALT 138 --> 208 -->137 -AST 50 -->53 -->29 -Recheck LFTs improved Cannabis use -Cessation encouraged DVT prophylaxis-ambulation Stable from Hospitalist standpoint. We will sign off. Reconsult as needed. Code Status: Full code Discussed Condition With: Patient, nurse Discharge Planning: DC disposition by primary team
[2018-05-23] MEDS: REMOVE OLD NICODERM (NICOTINE) PATCH T-DERMAL SCH (21:45)
[2018-05-23] MEDS: traZODone 50 MG Tablet PO SCH (21:45)
[2018-05-24] MEDS: Pregabalin 75 MG Capsule PO SCH ×2 (09:15→21:11)
[2018-05-24] MEDS: Lisinopril 20 MG Tablet PO SCH (09:15)
--- NOTE | 2018-05-24 13:34 | P.PNPSY ---
Subjective Remarks: Patient seen for follow up; chart reviewed. Discussion with nursing staff reported that patient had become upset yesterday after she was told to end her call with her sister but no episodes of agitation. Patient was found heavily on unit noted B, cooperative continuous attention etiology and some disorganization during interview but appropriate stating that she has been feeling "fine" stating that she no longer has thoughts of wanting her to the people but makes comments of how she has gotten into altercations in the past. She denies any AH but continues with taoist preoccupation, that her is the bible. Denies any SI or HI today. Review of Systems All other systems reviewed negative except as stated in HPI Mental Status Examination Appearance: Appropriate Consciousness: Alert Orientation: x4 Motor Activity: Abnormal gait (Uses walker) Speech: Pressured (Lessening) Language: Adequate Fund of Knowledge: Inadequate Attention and Concentration: Easily distracted Memory: Impaired Mood: Appropriate Affect: Labile Thought Process & Associations: Disorganized (Lessening) Thought Content: Hallucinations (Denies), Preoccupations (Gnosticist preoccupation) Hallucination Type: Auditory ( denies) Delusion Type: None Suicidal Ideation: No Suicidal Plan: No Suicidal Intention: No Homicidal Ideation: No Homicidal Plan: No Homicidal Intention: No Insight: Fair Judgment: Impulsive Assessment and Plan - Assessment (1) Schizophrenia Code(s): F20.9 - Schizophrenia, unspecified Status: Acute - Plan Plan: Patient continues with some disorganization, but redirectable, continues some taoist preoccupation but less intense. Patient denies any auditory hallucinations today denies any suicidal homicidal ideations. We will continue current treatment. We will continue to monitor mood and behavior. Continue recommendations as per neurology consult. Discharge planning in progress. Justification for Continued Inpatient Stay: At risk of further decompensation a lower level of care
[2018-05-24] MEDS: traZODone 50 MG Tablet PO SCH (21:11)
[2018-05-24] MEDS: REMOVE OLD NICODERM (NICOTINE) PATCH T-DERMAL SCH (21:12)
[2018-05-25] MEDS: Pregabalin 75 MG Capsule PO SCH ×2 (09:05→21:41)
[2018-05-25] MEDS: Lisinopril 20 MG Tablet PO SCH (09:05)
--- NOTE | 2018-05-25 14:37 | P.PNPSY ---
Subjective Remarks: Pt seen and discussed with staff. Chart reviewed. She was admitted for increased hallucinations. She remains disorganized in thought process and is religiously preoccupied. She is compliant with medications and care. No SI/HI Mental Status Examination Appearance: Appropriate Consciousness: Alert Orientation: x4 Motor Activity: Abnormal gait (Uses walker) Speech: Pressured (Lessening) Language: Adequate Fund of Knowledge: Inadequate Attention and Concentration: Easily distracted Memory: Impaired Mood: Appropriate Affect: Labile Thought Process & Associations: Disorganized (improving) Thought Content: Hallucinations (Denies), Preoccupations (Roman Catholic preoccupation) Hallucination Type: Other (appears internally preoccupied) Delusion Type: None Suicidal Ideation: No Suicidal Plan: No Suicidal Intention: No Homicidal Ideation: No Homicidal Plan: No Homicidal Intention: No Insight: Fair Judgment: Impulsive Assessment and Plan - Assessment (1) Schizophrenia Code(s): F20.9 - Schizophrenia, unspecified Status: Acute - Plan Plan: Continue current tx plan Justification for Continued Inpatient Stay: impairments in reality testing
[2018-05-25] MEDS: traZODone 50 MG Tablet PO SCH (21:41)
[2018-05-25] MEDS: REMOVE OLD NICODERM (NICOTINE) PATCH T-DERMAL SCH (21:46)
[2018-05-26] MEDS: Lisinopril 20 MG Tablet PO SCH (10:49)
[2018-05-26] MEDS: Pregabalin 75 MG Capsule PO SCH ×2 (10:49→20:21)
--- NOTE | 2018-05-26 15:35 | P.PNPSY ---
Subjective Remarks: PT seen and discussed with staff. Pt told RN today that a voice instructed her to eat her cat in order to get a pain pill. She continues to be bizarre and disorganized, but has not been agitated. No SI/HI. She is compliant with care Mental Status Examination Appearance: Appropriate Consciousness: Alert Orientation: x4 Motor Activity: Abnormal gait (Uses walker) Speech: Pressured (Lessening) Language: Adequate Fund of Knowledge: Inadequate Attention and Concentration: Easily distracted Memory: Impaired Mood: Appropriate Affect: Labile Thought Process & Associations: Disorganized Thought Content: Hallucinations (Denies), Preoccupations (Mormonism fixations) Hallucination Type: Other (appears internally preoccupied) Delusion Type: Bizarre Suicidal Ideation: No Suicidal Plan: No Suicidal Intention: No Homicidal Ideation: No Homicidal Plan: No Homicidal Intention: No Insight: Poor Judgment: Poor Assessment and Plan - Assessment (1) Schizophrenia Code(s): F20.9 - Schizophrenia, unspecified Status: Acute - Plan Plan: Continue current tx plan. Justification for Continued Inpatient Stay: impairments in reality testing and self care
[2018-05-26] MEDS: traZODone 50 MG Tablet PO SCH (20:21)
[2018-05-27] MEDS: REMOVE OLD NICODERM (NICOTINE) PATCH T-DERMAL SCH ×2 (00:24→21:39)
[2018-05-27] MEDS: Lisinopril 20 MG Tablet PO SCH (08:21)
[2018-05-27] MEDS: Pregabalin 75 MG Capsule PO SCH ×2 (08:21→21:00)
[2018-05-27] MEDS: LORazepam 1 MG Tablet PO PRN (08:22)
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
[2018-05-27] MEDS: traZODone 50 MG Tablet PO SCH (21:01)
[2018-05-28] MEDS: Pregabalin 75 MG Capsule PO SCH ×2 (08:52→20:15)
[2018-05-28] MEDS: Lisinopril 20 MG Tablet PO SCH (08:52)
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
[2018-05-28] MEDS: traZODone 50 MG Tablet PO SCH (20:15)
[2018-05-28] MEDS: REMOVE OLD NICODERM (NICOTINE) PATCH T-DERMAL SCH (22:11)
[2018-05-29] MEDS: Lisinopril 20 MG Tablet PO SCH (10:48)
[2018-05-29] MEDS: Pregabalin 75 MG Capsule PO SCH ×2 (10:48→20:40)
--- NOTE | 2018-05-29 15:48 | P.PNPSY ---
Subjective Remarks: Patient seen for follow, chart reviewed. Discussion nursing staff reported the patient with some rambling, denies any AH. Patient was found participating in group outside, calm and cooperative. She states feeling "good", reports having slept well, denies any AH, denies any thoughts of hurting others. She mentions having spoken to her director case management Darwin and that his aiding in finding her residential placement. Review of Systems All other systems reviewed negative except as stated in HPI Mental Status Examination Appearance: Appropriate Consciousness: Alert Orientation: x4 Motor Activity: Abnormal gait (Uses walker) Speech: Pressured (Lessening), Other (rambling speech at times) Language: Adequate Fund of Knowledge: Inadequate Attention and Concentration: Easily distracted Memory: Impaired Mood: Appropriate Affect: Appropriate Thought Process & Associations: Disorganized (at times) Thought Content: Preoccupations (Mormon fixations but lessening) Hallucination Type: None Delusion Type: Bizarre Suicidal Ideation: No Suicidal Plan: No Suicidal Intention: No Homicidal Ideation: No Homicidal Plan: No Homicidal Intention: No Insight: Poor Judgment: Poor Assessment and Plan - Assessment (1) Schizophrenia Code(s): F20.9 - Schizophrenia, unspecified Status: Acute - Plan Plan: Patient with improvement in mood, denies any SI or HI, no perceptual disturbances. Continue current treatment, continue to monitor mood and behavior. Discharge planning in progress. Justification for Continued Inpatient Stay: At risk for further decompensation at lower level of care.
[2018-05-29] MEDS: traZODone 50 MG Tablet PO SCH (20:40)
[2018-05-29] MEDS: REMOVE OLD NICODERM (NICOTINE) PATCH T-DERMAL SCH (20:43)
[2018-05-30] MEDS: Lisinopril 20 MG Tablet PO SCH (09:25)
[2018-05-30] MEDS: Pregabalin 75 MG Capsule PO SCH ×2 (09:25→22:00)
--- NOTE | 2018-05-30 19:35 | P.PNPSY ---
Subjective Remarks: Patient seen for follow, chart reviewed. Discussion with patient continued to be relatively focused, and attending comments of being upset at her daughter-in- law, cooperative with staff. Patient was found in day room eating lunch, was happy that her daughter had come to visit as well as had visitation with her granddaughter. Patient states that she did feeling "good" has been a good mood , denying any auditory hallucinations, denying thoughts of hurting others. Patient mentions wanting to continue to attend groups while on the unit. Review of Systems All other systems reviewed negative except as stated in HPI Mental Status Examination Appearance: Appropriate Consciousness: Alert Orientation: x4 Motor Activity: Abnormal gait (Uses walker) Speech: Pressured (Lessening), Other (rambling speech at times) Language: Adequate Fund of Knowledge: Inadequate Attention and Concentration: Easily distracted Memory: Impaired Mood: Appropriate Affect: Appropriate Thought Process & Associations: Disorganized (at times) Thought Content: Preoccupations (Religiously focused at times) Hallucination Type: None Delusion Type: Bizarre Suicidal Ideation: No Suicidal Plan: No Suicidal Intention: No Homicidal Ideation: No Homicidal Plan: No Homicidal Intention: No Insight: Poor Judgment: Poor Assessment and Plan - Assessment (1) Schizophrenia Code(s): F20.9 - Schizophrenia, unspecified Status: Acute - Plan Plan: Patient compliant with medications, no longer endorsing auditory hallucinations , and expressed being upset at her [id number] but denying any intention or thoughts of wanting to hurt others. Continue current treatment. We will continue to monitor mood and behavior. Discharge planning in progress. Justification for Continued Inpatient Stay: At risk for further decompensation if at lower level of care.
[2018-05-30] MEDS: REMOVE OLD NICODERM (NICOTINE) PATCH T-DERMAL SCH (21:00)
[2018-05-30] MEDS: traZODone 50 MG Tablet PO SCH (22:00)
[2018-05-31] MEDS: Acetaminophen 325 MG Tablet PO PRN (05:58)
[2018-05-31] MEDS: Pregabalin 75 MG Capsule PO SCH ×2 (09:17→21:47)
[2018-05-31] MEDS: Lisinopril 20 MG Tablet PO SCH (09:18)
--- NOTE | 2018-05-31 20:43 | P.PNPSY ---
Subjective Remarks: Patient seen for follow, chart reviewed. Discussion nursing staff reported the patient has been attending groups, cooperative. Patient was found sitting hospital chair noted B, cooperative. Patient states that she decided to have her bilingual case manager that is sure disability income. Patient reports sleeping well , his mood is "better" denying any perceptional services, denies any thoughts of self-harm or thoughts of hurting others. Patient states enjoying participating in groups. Patient noted to be less disorganized. Review of Systems All other systems reviewed negative except as stated in HPI Mental Status Examination Appearance: Appropriate Consciousness: Alert Orientation: x4 Motor Activity: Abnormal gait (Uses walker) Speech: Other (Less rambling) Language: Adequate Fund of Knowledge: Inadequate Attention and Concentration: Easily distracted Memory: Impaired Mood: Appropriate Affect: Appropriate Thought Process & Associations: Disorganized (at times) Thought Content: Preoccupations (Religiously focused at times but less intense now) Hallucination Type: None Delusion Type: Bizarre Suicidal Ideation: No Suicidal Plan: No Suicidal Intention: No Homicidal Ideation: No Homicidal Plan: No Homicidal Intention: No Insight: Poor Judgment: Poor Assessment and Plan - Assessment (1) Schizophrenia Code(s): F20.9 - Schizophrenia, unspecified Status: Acute - Plan Plan: Patient this time tolerated medications well, noted with stable mood, no longer endorsing any perceptional services nor any thoughts of harming others. Patient noted to have more appropriate responses to questioning, less disorganized and less rambling. Continue current treatment. Continue to monitor mood and behavior. Discharge planning in progress. Justification for Continued Inpatient Stay: At risk of further decompensation at lower level care.
[2018-05-31] MEDS: traZODone 50 MG Tablet PO SCH (21:47)
[2018-05-31] MEDS: REMOVE OLD NICODERM (NICOTINE) PATCH T-DERMAL SCH (23:47)
[2018-06-01] MEDS: Pregabalin 75 MG Capsule PO SCH ×2 (08:42→21:24)
[2018-06-01] MEDS: Lisinopril 20 MG Tablet PO SCH (08:43)
--- NOTE | 2018-06-01 16:43 | P.PNPSY ---
Subjective Remarks: Patient was seen and case discussed with nursing. Patient is behaving well on the unit today. She denies any auditory or visual hallucinations. Compliant with medications. However she says she feels "down, sad. She does deny suicidal or homicidal ideation intent or plan Mental Status Examination Appearance: Appropriate Consciousness: Alert Orientation: x4 Motor Activity: Abnormal gait (Uses walker) Speech: Other (Less rambling) Language: Adequate Fund of Knowledge: Inadequate Attention and Concentration: Easily distracted Memory: Impaired Mood: Sad Affect: Appropriate Thought Process & Associations: Disorganized (at times) Thought Content: Preoccupations (Religiously focused at times but less intense now) Hallucination Type: None Delusion Type: Bizarre Suicidal Ideation: No Suicidal Plan: No Suicidal Intention: No Homicidal Ideation: No Homicidal Plan: No Homicidal Intention: No Insight: Poor Judgment: Poor Assessment and Plan - Assessment (1) Schizophrenia Code(s): F20.9 - Schizophrenia, unspecified Status: Acute - Plan Plan: Continue current treatment plan Justification for Continued Inpatient Stay: Patient would decompensate in a less restrictive setting
[2018-06-01] MEDS: traZODone 50 MG Tablet PO SCH (21:23)
[2018-06-02] MEDS: REMOVE OLD NICODERM (NICOTINE) PATCH T-DERMAL SCH ×2 (05:57→23:27)
[2018-06-02] MEDS: Pregabalin 75 MG Capsule PO SCH ×2 (09:32→20:58)
[2018-06-02] MEDS: Lisinopril 20 MG Tablet PO SCH (09:34)
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
[2018-06-02] MEDS: traZODone 50 MG Tablet PO SCH (20:58)
[2018-06-03] MEDS: Pregabalin 75 MG Capsule PO SCH ×2 (08:53→20:50)
[2018-06-03] MEDS: Lisinopril 20 MG Tablet PO SCH (08:54)
--- NOTE | 2018-06-03 16:21 | P.PNPSY ---
Subjective Remarks: Patient seen for follow-up, chart reviewed. Discussion with nursing staff reported that the patient met compliant, no behavioral issues at this time, continues to be religiously focused at times. Patient was found in day room noted to be calm and, cooperative watching television. Patient states that her weekend went "good", eating and drinking well no difficulty or bowel movement. Patient states that she no longer has any thoughts of harming others no suicidal ideations or homicidal ideations. Patient denies any auditory or visual hallucinations. Review of Systems All other systems reviewed negative except as stated in HPI Mental Status Examination Appearance: Appropriate Consciousness: Alert Orientation: x4 Motor Activity: Abnormal gait (Uses walker) Speech: Other (Less rambling) Language: Adequate Fund of Knowledge: Inadequate Attention and Concentration: Easily distracted Memory: Impaired Mood: Appropriate Affect: Appropriate Thought Process & Associations: Disorganized (minimally at times) Thought Content: Preoccupations (Religiously focused at times but less intense now) Hallucination Type: None Delusion Type: None Suicidal Ideation: No Suicidal Plan: No Suicidal Intention: No Homicidal Ideation: No Homicidal Plan: No Homicidal Intention: No Insight: Poor Judgment: Poor Assessment and Plan - Assessment (1) Schizophrenia Code(s): F20.9 - Schizophrenia, unspecified Status: Acute - Plan Plan: Patient this time noted to be responding well to treatment, no longer endorsing any thoughts of hurting others, denies any SI, or perceptual disturbances. We will continue current treatment. Treatment team currently exploring options of where patient may be discharged to patient at this time requires assistance with self-care secondary to neurological deficits from MS. We will continue to monitor mood and behavior. Discharge planning in progress. Justification for Continued Inpatient Stay: At risk of further decompensation a lower level care.
[2018-06-03] MEDS: traZODone 50 MG Tablet PO SCH (20:51)
[2018-06-03] MEDS: REMOVE OLD NICODERM (NICOTINE) PATCH T-DERMAL SCH (20:52)
[2018-06-04] MEDS: Lisinopril 20 MG Tablet PO SCH (09:46)
[2018-06-04] MEDS: Pregabalin 75 MG Capsule PO SCH ×2 (09:46→22:20)
--- NOTE | 2018-06-04 11:08 | P.PNPSY ---
Subjective Remarks: Patient seen for follow, chart reviewed. Discussion nursing staff reported the patient slept well, cooperative no behavioral disturbances. Patient was found in day room noted to be eating breakfast noted B, cooperative. Patient states that she had slept well, looking forward to participate more groups today, denying any physical complaints other than the decrease strength in her hands that she has noticed having difficulty with eating this morning. Patient work with physical therapy this morning. She continues to deny any suicidal homicidal ideations, denies any perceptual disturbances at this time, noted to have some rambling this morning but redirectable. Review of Systems All other systems reviewed negative except as stated in HPI Mental Status Examination Appearance: Appropriate Consciousness: Alert Orientation: x4 Motor Activity: Abnormal gait (Uses walker) Speech: Other (Less rambling) Language: Adequate Fund of Knowledge: Inadequate Attention and Concentration: Easily distracted Memory: Impaired Mood: Appropriate Affect: Appropriate Thought Process & Associations: Other (Some rambling at times) Thought Content: Preoccupations (Religiously focused at times but less intense now) Hallucination Type: None Delusion Type: None Suicidal Ideation: No Suicidal Plan: No Suicidal Intention: No Homicidal Ideation: No Homicidal Plan: No Homicidal Intention: No Insight: Fair Judgment: Impulsive Assessment and Plan - Assessment (1) Schizophrenia Code(s): F20.9 - Schizophrenia, unspecified Status: Acute - Plan Plan: Patient continues with stable mood, no aggressive behavior, has a compliant with treatment. No perceptual disturbances or suicidal homicidal ideations, continues to have minimal preoccupation religiously. We will continue current treatment. We will continue to monitor mood and behavior. Physical therapy input appreciated. Discharge planning in progress. Justification for Continued Inpatient Stay: At risk of further decompensation a lower level of care.
[2018-06-04] MEDS: traZODone 50 MG Tablet PO SCH (22:22)
[2018-06-04] MEDS: LORazepam 1 MG Tablet PO PRN (22:23)
[2018-06-05] MEDS: REMOVE OLD NICODERM (NICOTINE) PATCH T-DERMAL SCH (02:34)
[2018-06-05] MEDS: Pregabalin 75 MG Capsule PO SCH ×2 (08:41→21:32)
[2018-06-05] MEDS: Lisinopril 20 MG Tablet PO SCH (08:41)
--- NOTE | 2018-06-05 11:31 | P.PNPSY ---
Subjective Remarks: Patient seen for follow, chart reviewed. Discussion nursing staff reported the patient has been appropriate on the unit, compliant with medications, pleasant and cooperative. Patient was found sitting in day room noted B, cooperative. Patient noted with appropriate affect, smiling throughout interview, stating that she is feeling "good" stating that she would like to build discharged to her sister's home. Patient also recalls having participated in groups, denies any depressed mood, denies any perceptional disturbances or delusions although at times with minimal rambling but redirectable. Review of Systems All other systems reviewed negative except as stated in HPI Mental Status Examination Appearance: Appropriate Consciousness: Alert Orientation: x4 Motor Activity: Abnormal gait (Uses walker) Speech: Other (Less rambling) Language: Adequate Fund of Knowledge: Inadequate Attention and Concentration: Easily distracted Memory: Impaired Mood: Appropriate Affect: Appropriate Thought Process & Associations: Other (Some rambling at times) Thought Content: Preoccupations (Religiously focused at times but less intense now) Hallucination Type: None Delusion Type: None Suicidal Ideation: No Suicidal Plan: No Suicidal Intention: No Homicidal Ideation: No Homicidal Plan: No Homicidal Intention: No Insight: Fair Judgment: Impulsive Assessment and Plan - Assessment (1) Schizophrenia Code(s): F20.9 - Schizophrenia, unspecified Status: Acute - Plan Plan: Patient this time continues with appropriate behavior, cooperative, compliant with treatment, pleasant. We will continue current treatment. We will continue to monitor mood and behavior. Discharge planning continues to involve arranging safe discharge disposition in place for patient. Patient possibly may be discharged to sister's home and will continue to be explored. Discharge planning in progress. Justification for Continued Inpatient Stay: At risk for decompensation a lower level care.
[2018-06-05] MEDS: traZODone 50 MG Tablet PO SCH (21:31)
[2018-06-06] MEDS: REMOVE OLD NICODERM (NICOTINE) PATCH T-DERMAL SCH ×2 (04:03→21:23)
[2018-06-06] MEDS: Pregabalin 75 MG Capsule PO SCH ×2 (09:59→21:22)
[2018-06-06] MEDS: Lisinopril 20 MG Tablet PO SCH (09:59)
--- NOTE | 2018-06-06 12:26 | P.PNPSY ---
Subjective Remarks: Reviewed electronic medical records and discussed case with staff. Follow-up was conducted in the patient's room. Patient has multiple complaints about taking trazodone. She states that it makes her "move in slow motion". However , she does admit that she slept good last night. She reports that she has a good appetite and states that she has trouble picking her food up. She blames this on the trazodone as well. She seems goal-directed when getting off the trazodone. She has no other complaints at this time. Mental Status Examination Appearance: Appropriate Consciousness: Alert Orientation: x4 Motor Activity: Abnormal gait (Uses walker) Speech: Other (Less rambling) Language: Adequate Fund of Knowledge: Inadequate Attention and Concentration: Easily distracted Memory: Impaired Mood: Appropriate Affect: Appropriate Thought Process & Associations: Other (Some rambling at times) Thought Content: Preoccupations (Religiously focused at times but less intense now) Hallucination Type: None Delusion Type: None Suicidal Ideation: No Suicidal Plan: No Suicidal Intention: No Homicidal Ideation: No Homicidal Plan: No Homicidal Intention: No Insight: Fair Judgment: Impulsive Assessment and Plan - Assessment (1) Schizophrenia Code(s): F20.9 - Schizophrenia, unspecified Status: Acute - Plan Plan: Continue with current treatment plan. Discharge planning is in progress. Justification for Continued Inpatient Stay: Moving this patient to a less restrictive environment would likely result in decompensation.
[2018-06-06] MEDS: traZODone 50 MG Tablet PO SCH (21:22)
[2018-06-07] MEDS: Pregabalin 75 MG Capsule PO SCH ×2 (08:52→21:20)
[2018-06-07] MEDS: Lisinopril 20 MG Tablet PO SCH (09:34)
--- NOTE | 2018-06-07 13:08 | P.PNPSY ---
Subjective Remarks: Reviewed electronic medical records and discussed case with staff. Follow-up was conducted in the day room. Patient was found preparing to eat her lunch. She states that she slept good reports that her appetite is not great she has been "making myself to eat". She still slightly disorganized and is. Her speech is rapid and pressured. She reports "I want to class out on people that have done things to me. Kim Banks is my friend". She additionally tells me that she is "a robot now from the trazodone". However, today she is not is goal-directed of getting off the trazodone and it appears it may be slowing down her thought process somewhat. Mental Status Examination Appearance: Appropriate Consciousness: Alert Orientation: x4 Motor Activity: Abnormal gait (Uses walker) Speech: Other (Less rambling) Language: Adequate Fund of Knowledge: Inadequate Attention and Concentration: Easily distracted Memory: Impaired Mood: Appropriate Affect: Appropriate Thought Process & Associations: Other (Some rambling at times) Thought Content: Preoccupations (Religiously focused at times but less intense now) Hallucination Type: None Delusion Type: None Suicidal Ideation: No Suicidal Plan: No Suicidal Intention: No Homicidal Ideation: No Homicidal Plan: No Homicidal Intention: No Insight: Fair Judgment: Impulsive Assessment and Plan - Assessment (1) Schizophrenia Code(s): F20.9 - Schizophrenia, unspecified Status: Acute - Plan Plan: Continue with current treatment plan. Discharge planning in progress. Justification for Continued Inpatient Stay: Moving this patient to a less restrictive environment would likely result in decompensation.
[2018-06-07] MEDS: REMOVE OLD NICODERM (NICOTINE) PATCH T-DERMAL SCH (21:00)
[2018-06-07] MEDS: traZODone 50 MG Tablet PO SCH (21:20)
[2018-06-08] MEDS: Lisinopril 20 MG Tablet PO SCH (08:20)
[2018-06-08] MEDS: Pregabalin 75 MG Capsule PO SCH ×2 (08:20→20:32)
--- NOTE | 2018-06-08 15:53 | P.PNPSY ---
Subjective Remarks: Patient was seen and case discussed with nursing. Patient is pleasant and cooperative with exam. However, she remains religiously preoccupied. She is hyperverbal and pressured and insists on discussing new revelations that she is made today. She is behaving well on the unit and compliant with her medications Mental Status Examination Appearance: Appropriate Consciousness: Alert Orientation: x4 Motor Activity: Abnormal gait (Uses walker) Speech: Other (Less rambling) Language: Adequate Fund of Knowledge: Inadequate Attention and Concentration: Easily distracted Memory: Impaired Mood: Appropriate Affect: Appropriate Thought Process & Associations: Other (Some rambling at times) Thought Content: Preoccupations (Religiously focused at times but less intense now) Hallucination Type: None Delusion Type: None Suicidal Ideation: No Suicidal Plan: No Suicidal Intention: No Homicidal Ideation: No Homicidal Plan: No Homicidal Intention: No Insight: Fair Judgment: Impulsive Assessment and Plan - Assessment (1) Schizophrenia Code(s): F20.9 - Schizophrenia, unspecified Status: Acute - Plan Plan: Continue current treatment plan Justification for Continued Inpatient Stay: Patient would decompensate in a less restrictive setting
[2018-06-08] MEDS: traZODone 50 MG Tablet PO SCH (20:32)
[2018-06-08] MEDS: REMOVE OLD NICODERM (NICOTINE) PATCH T-DERMAL SCH (21:00)
[2018-06-09] MEDS: Lisinopril 20 MG Tablet PO SCH (08:38)
[2018-06-09] MEDS: Pregabalin 75 MG Capsule PO SCH ×2 (08:38→20:58)
--- NOTE | 2018-06-09 12:09 | P.PNPSY ---
Subjective Remarks: Patient was seen and case discussed with nursing. Patient was somnolent this morning and has some psychomotor retardation. She did get up to have lunch. Remains religiously preoccupied. Behaving well on the unit, no outbursts Mental Status Examination Appearance: Appropriate Consciousness: Alert Orientation: x4 Motor Activity: Abnormal gait (Uses walker) Speech: Other (Less rambling) Language: Adequate Fund of Knowledge: Inadequate Attention and Concentration: Easily distracted Memory: Impaired Mood: Appropriate Affect: Appropriate Thought Process & Associations: Other (Some rambling at times) Thought Content: Preoccupations (Religiously focused at times but less intense now) Hallucination Type: None Delusion Type: None Suicidal Ideation: No Suicidal Plan: No Suicidal Intention: No Homicidal Ideation: No Homicidal Plan: No Homicidal Intention: No Insight: Fair Judgment: Impulsive Assessment and Plan - Assessment (1) Schizophrenia Code(s): F20.9 - Schizophrenia, unspecified Status: Acute - Plan Plan: Continue current treatment plan Justification for Continued Inpatient Stay: Patient would decompensate in a less restrictive setting
[2018-06-09] MEDS: traZODone 50 MG Tablet PO SCH (20:58)
[2018-06-09] MEDS: REMOVE OLD NICODERM (NICOTINE) PATCH T-DERMAL SCH (20:59)
[2018-06-10] MEDS: Lisinopril 20 MG Tablet PO SCH (08:30)
[2018-06-10] MEDS: Pregabalin 75 MG Capsule PO SCH ×2 (08:56→23:10)
--- NOTE | 2018-06-10 09:15 | P.PNPSY ---
Subjective Remarks: Reviewed electronic medical records and discussed case with staff. Follow-up was conducted in the day room. Patient found sitting in a Dana chair eating her breakfast. She reports that she had an episode of incontinence last night which stressed her. Her nurse as well as the patient reports that she is extremely lethargic in the morning. During the follow-up she does present at this hypokinetic and hyperverbal. Patient feels like it has to do with the trazodone. Therefore, I placed the trazodone on hold to see if that helps her situation. She does report that her appetite is been good. Mental Status Examination Appearance: Appropriate Consciousness: Alert Orientation: x4 Motor Activity: Abnormal gait (Uses walker) Speech: Other (Less rambling) Language: Adequate Fund of Knowledge: Inadequate Attention and Concentration: Easily distracted Memory: Impaired Mood: Appropriate Affect: Appropriate Thought Process & Associations: Other (Some rambling at times) Thought Content: Preoccupations (Religiously focused at times but less intense now) Hallucination Type: None Delusion Type: None Suicidal Ideation: No Suicidal Plan: No Suicidal Intention: No Homicidal Ideation: No Homicidal Plan: No Homicidal Intention: No Insight: Fair Judgment: Impulsive Assessment and Plan - Assessment (1) Schizophrenia Code(s): F20.9 - Schizophrenia, unspecified Status: Acute - Plan Plan: Patient will be reevaluated tomorrow by the attending psychiatrist. Continue with current treatment plan. Justification for Continued Inpatient Stay: Moving this patient to a less restrictive environment would likely result in decompensation.
[2018-06-10] MEDS: REMOVE OLD NICODERM (NICOTINE) PATCH T-DERMAL SCH (23:05)
[2018-06-11] MEDS: Pregabalin 75 MG Capsule PO SCH ×2 (10:07→20:20)
[2018-06-11] MEDS: Lisinopril 20 MG Tablet PO SCH (10:08)
--- NOTE | 2018-06-11 12:55 | P.PNPSY ---
Subjective Remarks: Patient seen for follow, chart reviewed. Discussion nursing staff reported that [facility] to [facility] yesterday for possible acceptance to the facility, patient has been pleasant and compliant with medications. Patient was found in day room eating lunch noted B, cooperative. Patient states that she is feeling "good" stating that she no longer has any more bad thoughts, noted to be somewhat tangential during interview with some loosening associations but redirectable, pleasant, denying any perceptional services, denying any suicidal homicidal ideation. Patient mentioning having some weakness in her hands and having some difficulty with feeding herself using the utensils but denies any other complaints. She states that she is interested to continue to participate in groups and asking when she would like to be discharged. Review of Systems All other systems reviewed negative except as stated in HPI Mental Status Examination Appearance: Appropriate Consciousness: Alert Orientation: x4 Motor Activity: Abnormal gait (Uses walker) Speech: Other (Less rambling) Language: Adequate Fund of Knowledge: Inadequate Attention and Concentration: Easily distracted Memory: Impaired Mood: Appropriate Affect: Appropriate Thought Process & Associations: Loose associations (Some), Other (Some rambling at times) Thought Content: Preoccupations (Religiously focused at times but less intense now), Other Hallucination Type: None Delusion Type: None Suicidal Ideation: No Suicidal Plan: No Suicidal Intention: No Homicidal Ideation: No Homicidal Plan: No Homicidal Intention: No Insight: Fair Judgment: Impulsive Assessment and Plan - Assessment (1) Schizophrenia Code(s): F20.9 - Schizophrenia, unspecified Status: Acute - Plan Plan: Patient this time likely at baseline, denying any perceptional services or delusions but is having on occasion some tangentiality and loosening associations but easily redirectable. We will continue current treatment. Treatment team currently attempting to find patient appropriate placement with services that will attend to her needs. We will continue to monitor mood and behavior. Discharge planning in progress. Justification for Continued Inpatient Stay: At risk of further decompensation a lower level care.
[2018-06-11] MEDS: REMOVE OLD NICODERM (NICOTINE) PATCH T-DERMAL SCH (20:39)
[2018-06-12] MEDS: Pregabalin 75 MG Capsule PO SCH ×2 (08:43→20:45)
[2018-06-12] MEDS: Lisinopril 20 MG Tablet PO SCH (08:43)
--- NOTE | 2018-06-12 16:19 | P.PNPSY ---
Subjective Remarks: Patient seen for follow up, chart reviewed. Discussion nursing staff reported patient with good behavioral control, no episodes of agitation, compliant with treatment. Patient was found sitting in dayroom reading her bible, noted to be in good spirits. Patient states that she is feeling "good", states reading her bible and that she no longer has thoughts of hurting others. She states wanting to go back to work but aware that her MS is causing progressive weakness. She states wanting to continue to go to groups while on the unit. Denies any perceptual disturbances or delusions. Denies SI or HI. Review of Systems All other systems reviewed negative except as stated in HPI Mental Status Examination Appearance: Appropriate Consciousness: Alert Orientation: x4 Motor Activity: Abnormal gait (Uses walker) Speech: Other (Less rambling) Language: Adequate Fund of Knowledge: Inadequate Attention and Concentration: Easily distracted Memory: Impaired Mood: Appropriate Affect: Appropriate Thought Process & Associations: Loose associations (Some) Thought Content: Preoccupations (Religiously focused at times ), Other Hallucination Type: None Delusion Type: None Suicidal Ideation: No Suicidal Plan: No Suicidal Intention: No Homicidal Ideation: No Homicidal Plan: No Homicidal Intention: No Insight: Fair Judgment: Impulsive Assessment and Plan - Assessment (1) Schizophrenia Code(s): F20.9 - Schizophrenia, unspecified Status: Acute - Plan Plan: Patient continues with stable mood, no behavioral disturbances, has occasional loosening of association. Continue current treatment, continue to monitor mood and behavior. Discharge planning in progress. Justification for Continued Inpatient Stay: At risk for further decompensation at lower level of care.
[2018-06-12] MEDS: traZODone 50 MG Tablet PO SCH (20:45)
[2018-06-12] MEDS: REMOVE OLD NICODERM (NICOTINE) PATCH T-DERMAL SCH (22:03)
[2018-06-13] MEDS: Lisinopril 20 MG Tablet PO SCH (08:26)
[2018-06-13] MEDS: Pregabalin 75 MG Capsule PO SCH ×2 (08:26→20:17)
--- NOTE | 2018-06-13 10:16 | P.PNPSY ---
Subjective Remarks: Patient seen for follow, chart reviewed. Discussion with nursing staff reported the patient had been compliant with medication, no behavioral issues. Patient was found lying hospital bed noted B, cooperative. Patient states that she is feeling "tired" reports having attended group yesterday and attended movie group which she enjoyed. Patient eating and drinking well, no perceptual disturbances. He continues to have occasional tangentiality but appropriate during interview engaging appropriately. No episodes of agitation or behavioral dyscontrol. Review of Systems All other systems reviewed negative except as stated in HPI Mental Status Examination Appearance: Appropriate Consciousness: Alert Orientation: x4 Motor Activity: Abnormal gait (Uses walker) Speech: Other (Less rambling) Language: Adequate Fund of Knowledge: Inadequate Attention and Concentration: Easily distracted Memory: Impaired Mood: Appropriate Affect: Appropriate Thought Process & Associations: Loose associations (Some) Thought Content: Preoccupations (Religiously focused at times ), Other Hallucination Type: None Delusion Type: None Suicidal Ideation: No Suicidal Plan: No Suicidal Intention: No Homicidal Ideation: No Homicidal Plan: No Homicidal Intention: No Insight: Fair Judgment: Impulsive Assessment and Plan - Assessment (1) Schizophrenia Code(s): F20.9 - Schizophrenia, unspecified Status: Acute - Plan Plan: Patient this time continues with good behavioral control, has a compliant with medications and treatment. No behavioral disturbances and pleasant with staff and attending groups. Continue current treatment. We will continue to monitor mood and behavior. Treatment team currently attempting to finalize a safe disposition for patient. Discharge planning in progress. Justification for Continued Inpatient Stay: At risk of further decompensation a lower level of care.
--- NOTE | 2018-06-13 12:04 | P.TTN ---
- Patient Problems Problems: 1. Discharge planning 2. Medication compliance 3. Knowledge deficit 4. Lack of coping skills - Progress Toward Goals Provider Present: Dr. Jhonatan Omalley Provider Input: Needs placement Psychiatric Counselors Present: Other Psychiatric Therapist Input: [facility] -In need of placment with SNF due to fall risk,engages, at times pleasantly confused, cooperative, no beahviors Group Spec/RT/OT/FOUNTAIN Present: Vilma Churchill, [facility] Group Spec/RT/OT/FOUNTAIN Input: Appropriate, attends groups, follows rules, engages in projects, is social, insightful in groups and responsiable - Discharge Plan In need of snf- possible placement issue due to MS - [facility] medicaid application being filed - Documentation Teaching Recipient: Patient
[2018-06-13] MEDS: traZODone 50 MG Tablet PO SCH (20:18)
[2018-06-13] MEDS: REMOVE OLD NICODERM (NICOTINE) PATCH T-DERMAL SCH (21:10)
[2018-06-14] MEDS: Pregabalin 75 MG Capsule PO SCH ×2 (08:35→20:39)
[2018-06-14] MEDS: Lisinopril 20 MG Tablet PO SCH (08:35)
--- NOTE | 2018-06-14 15:49 | P.PNPSY ---
Subjective Remarks: Patient seen for follow up, chart reviewed. Discussion with nursing staff reported the patient good behavioral control, compliant pleasant with staff. Patient was found in day room watching television noted B, cooperative. Patient state that she slept well, reports having been attending groups which she enjoys, noted be somewhat tangential and some loosening associations but redirectable and having appropriate responses. Patient denies any difficulty with eating or drinking, no difficulty with bowel movement. Patient reports tolerating medication well denying any perceptual services or delusions, denying any SI or HI. Review of Systems All other systems reviewed negative except as stated in HPI Mental Status Examination Appearance: Appropriate Consciousness: Alert Orientation: x4 Motor Activity: Abnormal gait (Uses walker) Speech: Other (Less rambling) Language: Adequate Fund of Knowledge: Inadequate Attention and Concentration: Easily distracted Memory: Impaired Mood: Appropriate Affect: Appropriate Thought Process & Associations: Loose associations (Some) Thought Content: Preoccupations (Religiously focused at times ), Other Hallucination Type: None Delusion Type: None Suicidal Ideation: No Suicidal Plan: No Suicidal Intention: No Homicidal Ideation: No Homicidal Plan: No Homicidal Intention: No Insight: Fair Judgment: Impulsive Assessment and Plan - Assessment (1) Schizophrenia Code(s): F20.9 - Schizophrenia, unspecified Status: Acute - Plan Plan: Patient continues to be noted at baseline, no perceptual services or delusions, no SI or HI. Treatment he continues to attempt to arrange appropriate discharge with family. We will continue current treatment. We will continue to monitor mood and behavior. Discharge planning in progress. Justification for Continued Inpatient Stay: At risk of further decompensation a lower level of care.
[2018-06-14] MEDS: traZODone 50 MG Tablet PO SCH (20:38)
[2018-06-14] MEDS: REMOVE OLD NICODERM (NICOTINE) PATCH T-DERMAL SCH (21:59)
[2018-06-15] MEDS: Pregabalin 75 MG Capsule PO SCH ×2 (09:34→20:40)
[2018-06-15] MEDS: Lisinopril 20 MG Tablet PO SCH (09:34)
--- NOTE | 2018-06-15 19:02 | P.PNPSY ---
Subjective Remarks: Reviewed electronic medical records and discussed case with staff. Follow-up was conducted in the day room with CATARINA Francis present. Patient states that she slept good and has had a good appetite. Her mood is good her affect is euthymic. She is pleasant and interacts appropriately throughout the interview. She is anxious about her placement. Mental Status Examination Appearance: Appropriate Consciousness: Alert Orientation: x4 Motor Activity: Abnormal gait (Uses walker) Speech: Other (Less rambling) Language: Adequate Fund of Knowledge: Inadequate Attention and Concentration: Easily distracted Memory: Impaired Mood: Appropriate Affect: Appropriate Thought Process & Associations: Loose associations (Some) Thought Content: Preoccupations (Religiously focused at times ), Other Hallucination Type: None Delusion Type: None Suicidal Ideation: No Suicidal Plan: No Suicidal Intention: No Homicidal Ideation: No Homicidal Plan: No Homicidal Intention: No Insight: Fair Judgment: Impulsive Assessment and Plan - Assessment (1) Schizophrenia Code(s): F20.9 - Schizophrenia, unspecified Status: Acute - Plan Plan: Patient will be reevaluated Sunday by the attending psychiatrist. Continue with current treatment plan. Justification for Continued Inpatient Stay: Moving this patient to a less restrictive environment would likely result in decompensation.
[2018-06-15] MEDS: traZODone 50 MG Tablet PO SCH (21:35)
[2018-06-15] MEDS: REMOVE OLD NICODERM (NICOTINE) PATCH T-DERMAL SCH (21:35)
[2018-06-16] MEDS: Lisinopril 20 MG Tablet PO SCH (09:02)
[2018-06-16] MEDS: Pregabalin 75 MG Capsule PO SCH ×2 (09:02→20:36)
--- NOTE | 2018-06-16 10:05 | P.PNPSY ---
Subjective Chief Complaint: Schizophrenia Remarks: Reviewed electronic medical records and discussed case with staff. Follow-up was conducted in the day room with CATARINA Hamm present. Patient is in a chair in the dayroom. She is complaining of swollen ankles ( left greater than right). Patient states that she is having difficulty sleeping and is feeling more fatigued. She is euthymic and very pleasant. Patient discussed with Dr. Omalley and will place a Neuro consult to follow up on her MRI and Aubagio medication. Review of Systems All other systems reviewed negative except as stated in HPI Comments: Swelling in her ankles. (Left greater than Right). Mental Status Examination Appearance: Appropriate Consciousness: Alert Orientation: x4 Motor Activity: Abnormal gait (Uses walker with assist of two ) Speech: Other (Less rambling) Language: Adequate Fund of Knowledge: Inadequate Attention and Concentration: Easily distracted Memory: Impaired Mood: Appropriate Affect: Appropriate Thought Process & Associations: Loose associations (Some) Thought Content: Preoccupations (Religiously focused at times ), Other Hallucination Type: None Delusion Type: None Suicidal Ideation: No Suicidal Plan: No Suicidal Intention: No Homicidal Ideation: No Homicidal Plan: No Homicidal Intention: No Insight: Fair Judgment: Impulsive Assessment and Plan - Assessment (1) Schizophrenia Code(s): F20.9 - Schizophrenia, unspecified Status: Acute - Plan Plan: Patient will be reevaluated Sunday by the attending psychiatrist. Continue with current treatment plan. Justification for Continued Inpatient Stay: MOving patient to a less restrictive environment may result in decompensation.
[2018-06-16] MEDS: REMOVE OLD NICODERM (NICOTINE) PATCH T-DERMAL SCH (21:13)
[2018-06-16] MEDS: traZODone 50 MG Tablet PO SCH (21:13)
[2018-06-17] MEDS: Lisinopril 20 MG Tablet PO SCH (08:01)
[2018-06-17] MEDS: Pregabalin 75 MG Capsule PO SCH ×2 (09:37→20:17)
[2018-06-17 13:31] LABS: Baso % (Auto) 0.6 % (0.0-2.0); Eos # (Auto) 0.1 th/mm3 (0.0-0.4); Eos % (Auto) 1.6 % (0.0-4.0); Hematocrit 35.5 % (35.0-46.0); Hemoglobin 11.7 gm/dL (11.6-15.3); Lymph # (Auto) 1.1 th/mm3 (1.0-4.8); Lymph % (Auto) 20.7 % (9.0-44.0); Mean Corpuscular Hemoglobin 29.4 pg (27.0-34.0); Mean Corpuscular Volume 89.3 fL (80.0-100.0); Mean Platelet Volume 8.3 fL (7.0-11.0); Mono # (Auto) 0.6 th/mm3 (0.0-0.9); Mono % (Auto) 11.9 % (0.0-8.0); Neut # (Auto) 3.4 th/mm3 (1.8-7.7); Neut % (Auto) 65.2 % (16.0-70.0); Platelet Count 195 th/mm3 (150-450); Red Blood Count 3.98 mil/mm3 (4.00-5.30); Red Cell Distribution Width 14.3 % (11.6-17.2); White Blood Count 5.2 th/mm3 (4.0-11.0)
[2018-06-17 14:01] LABS: Albumin 3.1 g/dL (3.4-5.0); Anion Gap 7 meq/L (5-15); Aspartate Aminotransferase 11 U/L (15-37); Blood Urea Nitrogen 12 mg/dL (7-18); Calcium 8.2 mg/dL (8.5-10.1); Carbon Dioxide 27.7 meq/L (21.0-32.0); Chloride 107 meq/L (98-107); Glomerular Filtration Rate Greater Than 89 mL/min (>89); Glucose,Random 101 mg/dL (74-106); Potassium 4.1 meq/L (3.5-5.1); Sodium 142 meq/L (136-145)
[2018-06-17 14:05] LABS: Alanine Aminotransferase 22 U/L (10-53); Alkaline Phosphatase 111 U/L (45-117); Total Protein 6.9 g/dL (6.4-8.2)
--- NOTE | 2018-06-17 17:15 | P.PNPSY ---
Subjective Chief Complaint: Schizophrenia Remarks: Patient seen for follow, chart reviewed. Discussion nursing staff reported the patient was noted to be somewhat upset this morning but redirectable, neurology consult follow-up pending. Patient was found sitting in day room eating lunch watching television noted B, cooperative. Patient states that she is feeling happy that her hands have more mobility and is able to eat better today. Patient states she is interested in attending Project group, reports her mood as being "good", denying any perceptual services or delusions at this time. Review of Systems All other systems reviewed negative except as stated in HPI Mental Status Examination Appearance: Appropriate Consciousness: Alert Orientation: x4 Motor Activity: Abnormal gait (Uses walker with assist of two ) Speech: Other (Less rambling) Language: Adequate Fund of Knowledge: Inadequate Attention and Concentration: Easily distracted Memory: Impaired Mood: Appropriate Affect: Appropriate Thought Process & Associations: Loose associations (Some) Thought Content: Other (Rambling at times) Hallucination Type: None Delusion Type: None Suicidal Ideation: No Suicidal Plan: No Suicidal Intention: No Homicidal Ideation: No Homicidal Plan: No Homicidal Intention: No Insight: Fair Judgment: Impulsive Assessment and Plan - Assessment (1) Schizophrenia Code(s): F20.9 - Schizophrenia, unspecified Status: Acute - Plan Plan: Patient noted to continue to have stable mood, not endorsing any suicidal homicidal ideations, denies any perceptual services. Patient has occasional rambling but is easily redirectable but appropriate interactions with staff. Patient attending groups and activities. Continue current treatment. Continue to monitor mood and behavior. Labs ordered for repeat CBC and CMP. Discharge planning a progress. Justification for Continued Inpatient Stay: At risk of further decompensation a lower level of care.
--- NOTE | 2018-06-17 18:09 | P.PNNEU ---
Subjective Subjective Comments: pt c/o generalized weakness BUE and BLE. Her aubagio has been on hold due to elevated LFT. She also notes spasm in arms and legs Active Medications: Active Medications Acetaminophen (Tylenol) 650 mg PO Q4H PRN PRN Reason: Pain <2 or Temp >101F Last Admin: 05/31/18 05:58 Dose: 650 mg Hydrocodone Bitart/Acetaminophen ([place] 7.5/325) 1 tab PO Q6H PRN PRN Reason: PAIN 6-10;IF UNABLE TO TAKE PO Last Admin: 06/17/18 09:36 Dose: 1 tab Hydrocodone Bitart/Acetaminophen ([place] 5/325) 1 tab PO Q6H PRN PRN Reason: Pain 2-5 Last Admin: 06/16/18 20:36 Dose: 1 tab Al Hydrox/Mg Hydrox/Simethicone (Mag-Al Plus Susp Liq) 30 ml PO Q6H PRN PRN Reason: DYSPEPSIA Methylprednisolone Sodium Succinate 250 mg/ Sodium Chloride 104 mls @ 200 mls/ hr IV.SIG Q6HR ONE Stop: 06/17/18 18:33 Lisinopril (Prinivil) 20 mg PO DAILY [facility] Last Admin: 06/17/18 08:01 Dose: Not Given Lorazepam (Ativan) 1 mg PO Q6H PRN PRN Reason: ANXIETY Last Admin: 06/04/18 22:23 Dose: 1 mg Miscellaneous (Pill Splitter) 1 each OTHER DAILY [facility] Last Admin: 06/17/18 08:01 Dose: Not Given Nicotine (Habitrol 21 Mg Patch.24 Hr) 1 patch T-DERMAL DAILY [facility] Last Admin: 06/17/18 09:37 Dose: 1 patch Non-Formulary Medication (Teriflunomide [Aubagio]) 14 mg PO DAILY [facility] Last Admin: 05/23/18 09:04 Dose: Not Given Paliperidone Palmitate (Invega Er) 12 mg PO DAILY [facility] Last Admin: 06/17/18 09:37 Dose: 12 mg Patch Removal (Remove Old Patch) 1 each T-DERMAL HS [facility] Last Admin: 06/16/18 21:13 Dose: 1 each Pregabalin (Lyrica) 75 mg PO BID [facility] Last Admin: 06/17/18 09:37 Dose: 75 mg Ranitidine HCl (Zantac Liq) 150 mg PO BID [facility] Trazodone HCl (Desyrel) 25 mg PO HS [facility] Last Admin: 06/16/18 21:13 Dose: Not Given Allergies/Adverse Reactions: Allergies Allergy/AdvReac Type Severity Reaction Status Date / Time diatrizoate meglumine AdvReac Severe UNKNOWN Verified 05/18/18 15:35 gadobenic acid AdvReac Severe UNKNOWN Verified 05/18/18 15:35 gadodiamide AdvReac Severe UNKNOWN Verified 05/18/18 15:35 gadoteridol AdvReac Severe UNKNOWN Verified 05/18/18 15:35 iodixanol AdvReac Severe UNKNOWN Verified 05/18/18 15:35 iohexol AdvReac Severe UNKNOWN Verified 05/18/18 15:35 Physical Exam Vital signs: Vital Signs 06/16/18 21:36 06/17/18 06:03 06/17/18 09:00 Temperature 97.4 F L Pulse Rate 62 92 H Respiratory Rate 16 17 Blood Pressure 94/55 L 126/66 Pulse Oximetry 100 Intake & Output 06/16/18 06/17/18 06/17/18 18:59 06:59 18:59 Intake Total 240 / 240 220 / 220 Balance 240 / 240 220 / 220 Intake: Oral 240 / 240 120 / 120 Oral Supplement 100 / 100 Other: # Voids 1 Date of Last Bowel Movement 06/15/18 # Bowel Movements 0 - Routine Neurological Exam alert, speech normal CN intact MOTOR 4/5 BUE, 3/5 BLE Objective Laboratory Results - last 24 hr 06/17/18 06/17/18 12:55 12:55 WBC 5.2 RBC 3.98 L Hgb 11.7 Hct 35.5 MCV 89.3 MCH 29.4 MCHC 33.0 RDW 14.3 Plt Count 195 MPV 8.3 Neut % (Auto) 65.2 Lymph % (Auto) 20.7 Parmer % (Auto) 11.9 H Eos % (Auto) 1.6 Baso % (Auto) 0.6 Neut # (Auto) 3.4 Lymph # (Auto) 1.1 Parmer # (Auto) 0.6 Eos # (Auto) 0.1 Baso # (Auto) 0.0 WBC Differential . Differential Comment Auto diff final Sodium 142 Potassium 4.1 Chloride 107 Carbon Dioxide 27.7 Anion Gap 7 BUN 12 Creatinine 0.68 Estimated GFR Greater than 89 Random Glucose 101 Calcium 8.2 L Total Bilirubin 0.4 AST 11 L ALT 22 Alkaline Phosphatase 111 Total Protein 6.9 Albumin 3.1 L Review/Management - Diagnosis (1) Multiple sclerosis Code(s): G35 - Multiple sclerosis Status: Acute Current Visit: Yes - Review/Management Plan: probable MS exacerbation Recommend iv soluymedrol 250 mg iv Q 6 hrs for 3-5 days Continue to hold aubagio. May need to consider alternative immunomodulatior therapy
[2018-06-17] MEDS: traZODone 50 MG Tablet PO SCH (20:17)
[2018-06-17] MEDS: REMOVE OLD NICODERM (NICOTINE) PATCH T-DERMAL SCH (20:18)
[2018-06-17] MEDS ORDERED: MethylPREDNISolone Sod Suc Inj 250 MG in Sodium Chlor 0.9% Inj 100 ML IV.SIG ONE (21:00)
[2018-06-18] MEDS: MethylPREDNISolone Sod Suc Inj 250 MG in Sodium Chlor 0.9% Inj 100 ML IV.SIG SCH ×5 (00:56→20:35)
--- NOTE | 2018-06-18 08:02 | P.TTN ---
- Patient Problems Problems: 1. Discharge planning 2. Medication compliance 3. Knowledge deficit 4. Lack of coping skills - Progress Toward Goals Provider Present: Dr. Jhonatan Omalley Provider Input: Needs placement. We have been trying to get ahold of her brother whom has no insight. Nurse(s) Present: Noris Nurse Input: Pt is appropriate, cooperative with treatment, sleeps well, and med compliant Psychiatric Counselors Present: Bailey Peters LCSW, Dony Lim Jr., [facility] Psychiatric Therapist Input: [facility] -In need of placment with SNF due to fall risk,engages, at times pleasantly confused, cooperative, no beahviors; [facility] refused her because they did not want to pay for her MS medication. Group Spec/RT/OT/[facility]OUNT[facility] Present: АЛЕКСАНДР Burrows, Alin Calix, OT Group Spec/RT/OT/[place]OUNTAIN Input: Appropriate, attends groups, follows rules, engages in projects, is social, insightful in groups - Discharge Plan Care Coordination Program In need of snf- possible placement issue due to MS - [facility] medicaid application being filed - Documentation Teaching Recipient: Patient
--- NOTE | 2018-06-18 10:25 | P.PNPSY ---
Subjective Chief Complaint: Schizophrenia Remarks: Patient seen for follow, chart reviewed. Discussion nursing staff reported the patient with no behavioral issues, compliant with treatment and cooperative with staff. Patient was found lying hospital bed noted become cooperative. Patient states she is feeling "good" reports having slept well last night and stated that she is feeling somewhat better as the start of steroids. She continues denying any perceptional services or delusions but has occasional rambling at' times. Review of Systems All other systems reviewed negative except as stated in HPI Mental Status Examination Appearance: Appropriate Consciousness: Alert Orientation: x4 Motor Activity: Abnormal gait (Uses walker with assist of two ) Speech: Other (Less rambling) Language: Adequate Fund of Knowledge: Inadequate Attention and Concentration: Easily distracted Memory: Impaired Mood: Appropriate Affect: Appropriate Thought Process & Associations: Loose associations (Some) Thought Content: Other (Rambling at times) Hallucination Type: None Delusion Type: None Suicidal Ideation: No Suicidal Plan: No Suicidal Intention: No Homicidal Ideation: No Homicidal Plan: No Homicidal Intention: No Insight: Fair Judgment: Impulsive Assessment and Plan - Assessment (1) Schizophrenia Code(s): F20.9 - Schizophrenia, unspecified Status: Acute - Plan Plan: Patient continues with stable mood, occasional rambling but redirectable, no suicidal homicidal ideations, no perceptual disturbances. Neurology input appreciated. Patient to continue recommendations as per neurology consult. We will continue to monitor mood and behavior. Continue current treatment. Discharge planning a progress. Justification for Continued Inpatient Stay: At risk of further decompensation a lower level care.
[2018-06-18] MEDS: LORazepam 1 MG Tablet PO PRN ×2 (10:41→20:34)
[2018-06-18] MEDS: Lisinopril 20 MG Tablet PO SCH (10:41)
[2018-06-18] MEDS: Pregabalin 75 MG Capsule PO SCH ×2 (13:42→20:34)
[2018-06-18] MEDS: traZODone 50 MG Tablet PO SCH (20:33)
[2018-06-18] MEDS: REMOVE OLD NICODERM (NICOTINE) PATCH T-DERMAL SCH (20:38)
[2018-06-19] MEDS: MethylPREDNISolone Sod Suc Inj 250 MG in Sodium Chlor 0.9% Inj 100 ML IV.SIG SCH ×4 (02:56→20:32)
[2018-06-19] MEDS: Pregabalin 75 MG Capsule PO SCH ×2 (09:20→20:33)
[2018-06-19] MEDS: Lisinopril 20 MG Tablet PO SCH (09:20)
--- NOTE | 2018-06-19 16:52 | P.PNPSY ---
Subjective Chief Complaint: Schizophrenia Remarks: Patient seen and examined in coverage for Dr. Omalley. Chart reviewed. Case discussed with nursing staff who reports that the patient was found kneeling at her bedside today. It reportedly did not seem that she had fallen and so physician probation agent was not notified. On my exam, patient presents with thought blocking or perhaps cognitive delay as a consequence of her MS or some other factor. Patient makes no mention of being found out of bed this morning. She complains of increased urination, which she attributes to steroid. She also c/ o bilateral foot pain and swelling and it does seem she has at least trace swelling in the feet. She denies SI or HI. Denies audiovisual hallucinations presently but says that she was hallucinating quite badly prior to admission. No side effects from medications. No other physical complaints. Vital Signs Temp Pulse Resp BP Pulse Ox 06/19/18 06:45 98.3 F 71 17 156/97 H 97 06/18/18 17:42 98.1 F 88 18 166/89 H 99 Intake and Output 06/19/18 06/19/18 06/19/18 06:59 14:59 22:59 Intake Total 4 / 4 Balance 4 4 Intake: IV 4 / 4 SoluMEDROL Inj 250 MG In NS Inj 4 100 ML @ 200 mls/hr IV.SIG Q6H [facility] Rx#:[id number] Oral 0 / 0 Other: # Voids 2 Weight 77.8 kg Labs reviewed. No new labs. Review of Systems All other systems reviewed negative except as stated in HPI Mental Status Examination Appearance: Appropriate Consciousness: Alert Orientation: x4 Motor Activity: Other (Somewhat psychomotor slowed) Speech: Slow Language: Other (Somewhat rambling) Fund of Knowledge: Inadequate Attention and Concentration: Easily distracted Memory: Impaired Mood: Appropriate Affect: Appropriate Thought Process & Associations: Circumstantial Thought Content: Thought blocking Hallucination Type: None Delusion Type: None Suicidal Ideation: No Suicidal Plan: No Suicidal Intention: No Homicidal Ideation: No Homicidal Plan: No Homicidal Intention: No Insight: Fair Judgment: Impulsive Assessment and Plan - Assessment (1) Schizophrenia Code(s): F20.9 - Schizophrenia, unspecified Status: Acute - Plan Plan: Continue current psychotropic medications as ordered. I will request that the hospitalist evaluate the patient's complaints of foot pain and swelling, especially in light of the fact that she was "found down" this morning. Continue to monitor on medical psychiatric unit. Continue other medications and care as ordered. Justification for Continued Inpatient Stay: Complicating condition. Impairment in reality construction. High risk for decompensation and less restrictive environment. Discharge Planning: Per Dr. Omalley.
--- NOTE | 2018-06-19 17:20 | P.PNNEU ---
Subjective Subjective Comments: day 2 of iv solumedrol. Pt feels improved in LE strength, but is still weak. She is tolerating solumedrol Active Medications: Active Medications Acetaminophen (Tylenol) 650 mg PO Q4H PRN PRN Reason: Pain <2 or Temp >101F Last Admin: 05/31/18 05:58 Dose: 650 mg Hydrocodone Bitart/Acetaminophen ([place] 7.5/325) 1 tab PO Q6H PRN PRN Reason: PAIN 6-10;IF UNABLE TO TAKE PO Last Admin: 06/19/18 10:56 Dose: 1 tab Hydrocodone Bitart/Acetaminophen ([place] 5/325) 1 tab PO Q6H PRN PRN Reason: Pain 2-5 Last Admin: 06/17/18 20:24 Dose: 1 tab Al Hydrox/Mg Hydrox/Simethicone (Mag-Al Plus Susp Liq) 30 ml PO Q6H PRN PRN Reason: DYSPEPSIA Methylprednisolone Sodium Succinate 250 mg/ Sodium Chloride 104 mls @ 200 mls/ hr IV.SIG Q6H [facility] Stop: 06/20/18 15:32 Last Admin: 06/19/18 09:20 Dose: 100 mls/hr Lisinopril (Prinivil) 20 mg PO DAILY [facility] Last Admin: 06/19/18 09:20 Dose: 20 mg Lorazepam (Ativan) 1 mg PO Q6H PRN PRN Reason: ANXIETY Last Admin: 06/18/18 20:34 Dose: 1 mg Miscellaneous (Pill Splitter) 1 each OTHER DAILY [facility] Last Admin: 06/18/18 13:41 Dose: 1 each Nicotine (Habitrol 21 Mg Patch.24 Hr) 1 patch T-DERMAL DAILY [facility] Last Admin: 06/19/18 09:22 Dose: 1 patch Non-Formulary Medication (Teriflunomide [Aubagio]) 14 mg PO DAILY [facility] Last Admin: 05/23/18 09:04 Dose: Not Given Paliperidone Palmitate (Invega Er) 12 mg PO DAILY [facility] Last Admin: 06/19/18 09:20 Dose: 12 mg Patch Removal (Remove Old Patch) 1 each T-DERMAL HS [facility] Last Admin: 06/18/18 20:38 Dose: 1 each Pregabalin (Lyrica) 75 mg PO BID [facility] Last Admin: 06/19/18 09:20 Dose: 75 mg Ranitidine HCl (Zantac Liq) 150 mg PO BID [facility] Last Admin: 06/19/18 09:20 Dose: 150 mg Trazodone HCl (Desyrel) 25 mg PO HS [facility] Last Admin: 06/18/18 20:33 Dose: 25 mg Allergies/Adverse Reactions: Allergies Allergy/AdvReac Type Severity Reaction Status Date / Time diatrizoate meglumine AdvReac Severe UNKNOWN Verified 05/18/18 15:35 gadobenic acid AdvReac Severe UNKNOWN Verified 05/18/18 15:35 gadodiamide AdvReac Severe UNKNOWN Verified 05/18/18 15:35 gadoteridol AdvReac Severe UNKNOWN Verified 05/18/18 15:35 iodixanol AdvReac Severe UNKNOWN Verified 05/18/18 15:35 iohexol AdvReac Severe UNKNOWN Verified 05/18/18 15:35 Physical Exam Vital signs: Vital Signs 06/18/18 17:42 06/19/18 06:45 Temperature 98.1 F 98.3 F Pulse Rate 88 71 Respiratory Rate 18 17 Blood Pressure 166/89 H 156/97 H Pulse Oximetry 99 97 Intake & Output 06/18/18 06/19/18 06/19/18 18:59 06:59 18:59 Intake Total 1064 / 1064 544 / 544 4 / 4 Balance 1064 / 1064 544 / 544 4 / 4 Weight 77.8 kg Intake: IV 104 / 104 204 / 204 4 / 4 SoluMEDROL Inj 250 MG In NS Inj 104 / 104 204 / 204 4 / 4 100 ML @ 200 mls/hr IV.SIG Q6H [facility] Rx#:[id number] Oral 960 / 960 240 / 240 0 / 0 Oral Supplement 100 / 100 Other: # Voids 2 2 Date of Last Bowel Movement 06/15/18 06/15/18 - Routine Neurological Exam alert, oriented. speech normal, follow commands CN intact MOTOR 4/5 BUE and BLE Review/Management - Diagnosis (1) Multiple sclerosis Code(s): G35 - Multiple sclerosis Status: Acute Current Visit: Yes - Review/Management Plan: probable MS exacerbation Recommend iv soluymedrol 250 mg iv Q 6 hrs for 3-5 days Continue to hold aubagio due to elevated LFT. May need to consider alternative immunomodulatior therapy
[2018-06-19] MEDS: traZODone 50 MG Tablet PO SCH (20:33)
[2018-06-19] MEDS: REMOVE OLD NICODERM (NICOTINE) PATCH T-DERMAL SCH (20:34)
[2018-06-20] MEDS: MethylPREDNISolone Sod Suc Inj 250 MG in Sodium Chlor 0.9% Inj 100 ML IV.SIG SCH ×3 (02:52→14:53)
--- NOTE | 2018-06-20 08:42 | P.PN ---
Subjective Interval history: Reconsult for bilateral lower extremity edema and pain Patient seen and examined today reports she walked to the bathroom. States legs are heavy and weak. Denies SOB/ dyspnea. Denies chest pain, palpitations , headaches, dizziness. Denies fevers, chills, n/v/d. Denies dysuria. Physical Exam Vital signs: Vital Signs 06/20/18 06:11 Temperature 97.9 F Pulse Rate 62 Respiratory Rate 16 Blood Pressure 159/77 H Pulse Oximetry 97 Intake & Output 06/19/18 06/20/18 06/20/18 18:59 06:59 18:59 Intake Total 108 / 108 552 / 552 Balance 108 / 108 552 / 552 Weight 77.2 kg Intake: IV 108 / 108 312 / 312 SoluMEDROL Inj 250 MG In NS Inj 108 / 108 312 / 312 100 ML @ 200 mls/hr IV.SIG Q6H [facility] Rx#:[id number] Oral 0 / 0 240 / 240 Other: # Voids 1 Date of Last Bowel Movement 06/15/18 06/15/18 Narrative: GENERAL: Patient is a well developed AA female, appears to be in no acute distress. HEAD:Normocephalic. EYES: Pupils equal round and reactive. NECK: Trachea midline. No JVD. CARDIOVASCULAR: Regular rate and rhythm without murmurs, gallops, or rubs. RESPIRATORY: Clear to auscultation. Breath sounds equal bilaterally. No wheezes , rales, or rhonchi. GASTROINTESTINAL: Abdomen soft, non-tender, nondistended. MUSCULOSKELETAL: Extremities without clubbing, cyanosis. Kyphosis noted. BLE edema +2, tenderness to palpate NEUROLOGICAL: Awake and alert. 3 out of 5 muscle strength in bilateral lower extremities. Results - Labs CBC & Chem 7: 06/17/18 12:55 06/17/18 12:55 Assessment and Plan - Assessment (1) HTN (hypertension) Code(s): I10 - Essential (primary) hypertension Status: Acute (2) Schizophrenia Code(s): F20.9 - Schizophrenia, unspecified Status: Acute (3) Multiple sclerosis Code(s): G35 - Multiple sclerosis Status: Acute - Plan 52-year-old AA female with PMH significant for HTN, multiple sclerosis, and schizophrenia who presented to the ER on a voluntary basis for psychiatric evaluation. Apparently patient had been off of her Invega for the past year. She reported hallucinations with racing thoughts and inability to concentrate. She was cleared medically in the ER and admitted to inpatient psychiatry for further recommendations. [facility] consulted to assist with medical management. BLE weakness, edema. -Possible MS related but will rule out DVT -US Bilat Lower extremities -Possible lasix use, check labs -On steroids Schizophrenia -Managed by psychiatry team. -On hold Multiple sclerosis -Unable to continue home dose of Aubagio as this medication is not on formulary, patient does not have this with her but will get the medication from family member. Has been trying to get hold of the family member to get the medication from home. Will Hold for now. -PT/OT eval and treat -E-force checked last refill of Hydrocodone-Acetaminophen 10325 was on 04/30 for [address] Cole Llamas likely her PCP. -Continue on lower dose of Lortab -Neurology consulted, Dr. Villarreal. Appreciate recommendation. Recommends MRI in the cervical MRI and to place patient back on Lyrica for neuropathic pain. Also recommending holding Aubagio as the liver enzymes are elevated -Head MRI was done and showed periventricular white matter changes that would be consistent with a pneumonic process. There is no parenchymal hemorrhage acute infarction there is no abnormal contrast enhancement. Ventricular size is appropriate. Posterior fossa is unremarkable. -Cervical spine CT showed minimal increased signal in the upper cervical cord at the C2-C3 level would be consistent with a demyelinating process. There is no cord expansion to suggest neoplastic process. HTN, controlled -Continue home dose of Lisinopril Transaminitis, mild -Avoid hepatotoxin, possibly secondary to Aubagio use -ALT 138 --> 208 -->137 -AST 50 -->53 -->29 -Recheck LFTs improved Cannabis use -Cessation encouraged DVT prophylaxis-ambulation Code Status: Full Code Discussed Condition With: Patient, nursing, Dr. Omalley Discharge Planning: DC disposition by primary team
[2018-06-20] MEDS: Lisinopril 20 MG Tablet PO SCH (09:22)
[2018-06-20] MEDS: Pregabalin 75 MG Capsule PO SCH ×2 (09:22→21:15)
--- NOTE | 2018-06-20 11:24 | US ---
EXAM DATE: 06/20/2018 11:21 AM EDT AGE/SEX: 52 years / Female INDICATIONS: Leg pain. CLINICAL DATA: This is the patient's initial encounter. Patient reports that signs and symptoms have been present for 1 week and indicates a pain score of 4/10. MEDICAL/SURGICAL HISTORY: Hypertension. Multiple sclerosis. Bipolar 1 disorder. Tubal ligatio n. COMPARISON: No prior exams available for comparison. TECHNIQUE: Venous ultrasound of both lower extremities was performed from the inguinal ligament to t he proximal calf. Real-time, color Doppler and spectral tracing, compression and augmentation techni ques were used. FINDINGS: Right Leg: Normal compression of the deep venous system from the inguinal region to the proximal alejandro f. No echogenic clot is seen. Normal response of the venous system to augmentation and respiration. Left Leg: Normal compression of the deep venous system from the inguinal region to the proximal calf . No echogenic clot is seen. Normal response of the venous system to augmentation and respiration. Other: None. CONCLUSION: The study is negative for bilateral lower extremity deep venous thrombosis. Electronically signed by: Chevy Cannon MD 06/20/2018 11:22 AM EDT
[2018-06-20] MEDS: Furosemide 40 MG Tablet PO SCH (12:34)
--- NOTE | 2018-06-20 16:36 | P.PNPSY ---
Subjective Chief Complaint: Schizophrenia Remarks: Patient seen for follow up, chart reviewed. Discussion with nursing staff reported patient with no behavioral disturbances compliant with medication continues received Solu-Medrol for MS exacerbation. Patient was found lying hospital bed noted become cooperative. Patient states that she was [place] [employer] [place] evaluation and that she was told that she may be discharged to a residential facility soon. She states that she would like to continue to attend groups while on the unit, reports mood as being good denies any perceptional disturbances, denies any SI or HI. Review of Systems All other systems reviewed negative except as stated in HPI Mental Status Examination Appearance: Appropriate Consciousness: Alert Orientation: x4 Motor Activity: Other (Somewhat psychomotor slowed) Speech: Slow Language: Other (Somewhat rambling) Fund of Knowledge: Inadequate Attention and Concentration: Easily distracted Memory: Impaired Mood: Appropriate Affect: Appropriate Thought Process & Associations: Circumstantial (At times) Thought Content: Appropriate Hallucination Type: None Delusion Type: None Suicidal Ideation: No Suicidal Plan: No Suicidal Intention: No Homicidal Ideation: No Homicidal Plan: No Homicidal Intention: No Insight: Fair Judgment: Impulsive Assessment and Plan - Assessment (1) Schizophrenia Code(s): F20.9 - Schizophrenia, unspecified Status: Acute - Plan Plan: Patient this time continues with occasional rambling but appropriate responses to interview, denying any perceptual disturbances, no suicidal homicidal ideations. Patient to continue current treatment. Continue recommendations as per primary medical and neurology consult. Continue to monitor mood and behavior. Discharge planning in progress. Justification for Continued Inpatient Stay: At risk of further decompensation a lower level care.
[2018-06-20] MEDS: traZODone 50 MG Tablet PO SCH (21:15)
[2018-06-20] MEDS: REMOVE OLD NICODERM (NICOTINE) PATCH T-DERMAL SCH (21:16)
[2018-06-21 08:29] LABS: Baso % (Auto) 0.1 % (0.0-2.0); Hematocrit 35.7 % (35.0-46.0); Hemoglobin 11.9 gm/dL (11.6-15.3); Lymph # (Auto) 0.4 th/mm3 (1.0-4.8); Lymph % (Auto) 7.8 % (9.0-44.0); Mean Corpuscular HGB Conc 33.4 % (32.0-36.0); Mean Corpuscular Hemoglobin 29.4 pg (27.0-34.0); Mono # (Auto) 0.5 th/mm3 (0.0-0.9); Mono % (Auto) 9.4 % (0.0-8.0); Neut # (Auto) 4.7 th/mm3 (1.8-7.7); Neut % (Auto) 82.7 % (16.0-70.0); Platelet Count 184 th/mm3 (150-450); Red Blood Count 4.06 mil/mm3 (4.00-5.30); Red Cell Distribution Width 14.3 % (11.6-17.2); White Blood Count 5.7 th/mm3 (4.0-11.0)
[2018-06-21] MEDS: Pregabalin 75 MG Capsule PO SCH ×2 (08:42→21:46)
[2018-06-21] MEDS: Lisinopril 20 MG Tablet PO SCH (08:42)
[2018-06-21] MEDS: Furosemide 40 MG Tablet PO SCH ×2 (08:42→08:49)
[2018-06-21 08:50] LABS: Anion Gap 7 meq/L (5-15); Blood Urea Nitrogen 13 mg/dL (7-18); Calcium 8.3 mg/dL (8.5-10.1); Carbon Dioxide 30.7 meq/L (21.0-32.0); Chloride 106 meq/L (98-107); Glomerular Filtration Rate Greater Than 89 mL/min (>89); Glucose,Random 114 mg/dL (74-106); Potassium 3.7 meq/L (3.5-5.1); Sodium 144 meq/L (136-145)
--- NOTE | 2018-06-21 13:00 | P.PN ---
Subjective Interval history: Follow-up visit bilateral lower extremity edema, MS. Patient seen and examined today. Reports she is doing well. States she ambulated to the bathroom with assistance. States leg swelling has been down. Denies pain and discomfort. Denies SOB/ dyspnea. Denies chest pain, palpitations, headaches, dizziness. Denies fevers, chills, n/v/d. Denies dysuria. Physical Exam Vital signs: Vital Signs 06/20/18 18:00 06/21/18 00:11 06/21/18 05:42 Temperature 97.9 F 96.7 F L Pulse Rate 62 64 Respiratory Rate 16 16 18 Blood Pressure 161/82 H 199/87 H Pulse Oximetry 98 96 06/21/18 05:59 Temperature Pulse Rate Respiratory Rate Blood Pressure 169/79 H Pulse Oximetry Intake & Output 06/20/18 06/21/18 06/21/18 18:59 06:59 18:59 Intake Total 704 / 704 720 / 720 Balance 704 / 704 720 / 720 Intake: IV 104 / 104 SoluMEDROL Inj 250 MG In NS Inj 104 / 104 100 ML @ 200 mls/hr IV.SIG Q6H [facility] Rx#:[id number] Oral 600 / 600 720 / 720 Other: # Voids 1 Narrative: GENERAL: Patient is a well developed AA female, appears to be in no acute distress. HEAD:Normocephalic. EYES: Pupils equal round and reactive. NECK: Trachea midline. No JVD. CARDIOVASCULAR: Regular rate and rhythm without murmurs, gallops, or rubs. RESPIRATORY: Clear to auscultation. Breath sounds equal bilaterally. No wheezes , rales, or rhonchi. GASTROINTESTINAL: Abdomen soft, non-tender, nondistended. MUSCULOSKELETAL: Extremities without clubbing, cyanosis. Kyphosis noted. No edema NEUROLOGICAL: Awake and alert. 3 out of 5 muscle strength in bilateral lower extremities. Results - Labs CBC & Chem 7: 06/21/18 07:56 06/21/18 07:56 Laboratory Results - last 24 hr 06/21/18 06/21/18 07:56 07:56 WBC 5.7 RBC 4.06 Hgb 11.9 Hct 35.7 MCV 88.0 MCH 29.4 MCHC 33.4 RDW 14.3 Plt Count 184 MPV 9.0 Neut % (Auto) 82.7 H Lymph % (Auto) 7.8 L [place] % (Auto) 9.4 H Eos % (Auto) 0.0 Baso % (Auto) 0.1 Neut # (Auto) 4.7 Lymph # (Auto) 0.4 L [place] # (Auto) 0.5 Eos # (Auto) 0.0 Baso # (Auto) 0.0 WBC Differential . Differential Comment Auto diff final Sodium 144 Potassium 3.7 Chloride 106 Carbon Dioxide 30.7 Anion Gap 7 BUN 13 Creatinine 0.54 Estimated GFR Greater than 89 Random Glucose 114 H Calcium 8.3 L Assessment and Plan - Assessment (1) HTN (hypertension) Code(s): I10 - Essential (primary) hypertension Status: Acute (2) Schizophrenia Code(s): F20.9 - Schizophrenia, unspecified Status: Acute (3) Multiple sclerosis Code(s): G35 - Multiple sclerosis Status: Acute - Plan 52-year-old AA female with PMH significant for HTN, multiple sclerosis, and schizophrenia who presented to the ER on a voluntary basis for psychiatric evaluation. Apparently patient had been off of her Invega for the past year. She reported hallucinations with racing thoughts and inability to concentrate. She was cleared medically in the ER and admitted to inpatient psychiatry for further recommendations. [facility] consulted to assist with medical management. BLE weakness, edema. -Possible MS related but will rule out DVT -US Bilat Lower extremities DVT negative -Lasix given, improved will dc for now. Monitor legs for edema. Patient may need lasix po if edema comes back. -On steroids Schizophrenia -Managed by psychiatry team. -On hold Multiple sclerosis -Unable to continue home dose of Aubagio as this medication is not on formulary, patient does not have this with her but will get the medication from family member. Has been trying to get hold of the family member to get the medication from home. Will Hold for now. -PT/OT eval and treat -E-force checked last refill of Hydrocodone-Acetaminophen 10/325 was on 04/30 for [address] Cole Llamas likely her PCP. -Continue on lower dose of Lortab -Neurology consulted, Dr. Villarreal. Appreciate recommendation. Recommends MRI in the cervical MRI and to place patient back on Lyrica for neuropathic pain. Also recommending holding Aubagio as the liver enzymes are elevated -Head MRI was done and showed periventricular white matter changes that would be consistent with a pneumonic process. There is no parenchymal hemorrhage acute infarction there is no abnormal contrast enhancement. Ventricular size is appropriate. Posterior fossa is unremarkable. -Cervical spine CT showed minimal increased signal in the upper cervical cord at the C2-C3 level would be consistent with a demyelinating process. There is no cord expansion to suggest neoplastic process. HTN, controlled -Continue home dose of Lisinopril Transaminitis, mild -Avoid hepatotoxin, possibly secondary to Aubagio use -ALT 138 --> 208 -->137 -AST 50 -->53 -->29 -Recheck LFTs improved Cannabis use -Cessation encouraged DVT prophylaxis-ambulation Stable from Hospitalist standpoint. We will sign off. Reconsult as needed. Thank you. Code Status: Full code Discussed Condition With: Patient, nursing Discharge Planning: DC disposition by primary team
--- NOTE | 2018-06-21 18:17 | P.PNNEU ---
Subjective Subjective Comments: pt still feels weak but improved. Able to walk to bathroom Active Medications: Active Medications Acetaminophen (Tylenol) 650 mg PO Q4H PRN PRN Reason: Pain <2 or Temp >101F Last Admin: 05/31/18 05:58 Dose: 650 mg Hydrocodone Bitart/Acetaminophen ([place] 7.5/325) 1 tab PO Q6H PRN PRN Reason: PAIN 6-10;IF UNABLE TO TAKE PO Last Admin: 06/21/18 08:45 Dose: 1 tab Hydrocodone Bitart/Acetaminophen ([place] 5/325) 1 tab PO Q6H PRN PRN Reason: Pain 2-5 Last Admin: 06/17/18 20:24 Dose: 1 tab Al Hydrox/Mg Hydrox/Simethicone (Mag-Al Plus Susp Liq) 30 ml PO Q6H PRN PRN Reason: DYSPEPSIA Methylprednisolone Sodium Succinate 250 mg/ Sodium Chloride 104 mls @ 100 mls/ hr IV.SIG Q6HR [facility] Stop: 06/21/18 19:16 Lisinopril (Prinivil) 20 mg PO DAILY [facility] Last Admin: 06/21/18 08:42 Dose: 20 mg Lorazepam (Ativan) 1 mg PO Q6H PRN PRN Reason: ANXIETY Last Admin: 06/18/18 20:34 Dose: 1 mg Miscellaneous (Pill Splitter) 1 each OTHER DAILY [facility] Last Admin: 06/21/18 08:42 Dose: Not Given Nicotine (Habitrol 21 Mg Patch.24 Hr) 1 patch T-DERMAL DAILY [facility] Last Admin: 06/21/18 08:41 Dose: 1 patch Non-Formulary Medication (Teriflunomide [Aubagio]) 14 mg PO DAILY [facility] Last Admin: 05/23/18 09:04 Dose: Not Given Paliperidone Palmitate (Invega Er) 12 mg PO DAILY [facility] Last Admin: 06/21/18 08:42 Dose: 12 mg Patch Removal (Remove Old Patch) 1 each T-DERMAL HS [facility] Last Admin: 06/20/18 21:16 Dose: 1 each Pregabalin (Lyrica) 75 mg PO BID [facility] Last Admin: 06/21/18 08:42 Dose: 75 mg Ranitidine HCl (Zantac Liq) 150 mg PO BID [facility] Last Admin: 06/21/18 08:42 Dose: 150 mg Trazodone HCl (Desyrel) 25 mg PO [facility] Last Admin: 06/20/18 21:15 Dose: Not Given Allergies/Adverse Reactions: Allergies Allergy/AdvReac Type Severity Reaction Status Date / Time diatrizoate meglumine AdvReac Severe UNKNOWN Verified 05/18/18 15:35 gadobenic acid AdvReac Severe UNKNOWN Verified 05/18/18 15:35 gadodiamide AdvReac Severe UNKNOWN Verified 05/18/18 15:35 gadoteridol AdvReac Severe UNKNOWN Verified 05/18/18 15:35 iodixanol AdvReac Severe UNKNOWN Verified 05/18/18 15:35 iohexol AdvReac Severe UNKNOWN Verified 05/18/18 15:35 Physical Exam Vital signs: Vital Signs 06/21/18 00:11 06/21/18 05:42 06/21/18 05:59 Temperature 96.7 F L Pulse Rate 64 Respiratory Rate 16 18 Blood Pressure 199/87 H 169/79 H Pulse Oximetry 96 Intake & Output 06/20/18 06/21/18 06/21/18 18:59 06:59 18:59 Intake Total 704 / 704 1200 / 1200 Balance 704 / 704 1200 / 1200 Intake: IV 104 / 104 SoluMEDROL Inj 250 MG In NS Inj 104 / 104 100 ML @ 200 mls/hr IV.SIG Q6H [facility] Rx#:[id number] Oral 600 / 600 1200 / 1200 Other: # Voids 1 - Routine Neurological Exam alert, speech normal CN intact MOTOR 4/5 BUE, 3/5 BLE Objective Laboratory Results - last 24 hr 06/21/18 06/21/18 07:56 07:56 WBC 5.7 RBC 4.06 Hgb 11.9 Hct 35.7 MCV 88.0 MCH 29.4 MCHC 33.4 RDW 14.3 Plt Count 184 MPV 9.0 Neut % (Auto) 82.7 H Lymph % (Auto) 7.8 L [place] % (Auto) 9.4 H Eos % (Auto) 0.0 Baso % (Auto) 0.1 Neut # (Auto) 4.7 Lymph # (Auto) 0.4 L [place] # (Auto) 0.5 Eos # (Auto) 0.0 Baso # (Auto) 0.0 WBC Differential . Differential Comment Auto diff final Sodium 144 Potassium 3.7 Chloride 106 Carbon Dioxide 30.7 Anion Gap 7 BUN 13 Creatinine 0.54 Estimated GFR Greater than 89 Random Glucose 114 H Calcium 8.3 L Review/Management - Diagnosis (1) Multiple sclerosis Code(s): G35 - Multiple sclerosis Status: Acute Current Visit: Yes - Review/Management Plan: probable MS exacerbation Recommend iv soluymedrol 250 mg iv Q 6 hrs for 2-3 more days Continue to hold aubagio due to elevated LFT. May need to consider alternative immunomodulatior therapy
--- NOTE | 2018-06-21 18:43 | P.PNPSY ---
Subjective Chief Complaint: Schizophrenia Remarks: Patient seen for follow up; chart reviewed. Discussion with nursing staff reported that patient with behavioral issues, med compliant. Patient found lying on hospital bed, states that she is feeling better, able to be out of bed more yesterday and planning on doing the same. Patient denies any SI or HI, nor any perceptual disturbances. Review of Systems All other systems reviewed negative except as stated in HPI Mental Status Examination Appearance: Appropriate Consciousness: Alert Orientation: x4 Motor Activity: Other (Somewhat psychomotor slowed) Speech: Slow Language: Other (Somewhat rambling) Fund of Knowledge: Inadequate Attention and Concentration: Easily distracted Memory: Impaired Mood: Appropriate Affect: Appropriate Thought Process & Associations: Circumstantial (At times) Thought Content: Appropriate Hallucination Type: None Delusion Type: None Suicidal Ideation: No Suicidal Plan: No Suicidal Intention: No Homicidal Ideation: No Homicidal Plan: No Homicidal Intention: No Insight: Fair Judgment: Impulsive Assessment and Plan - Assessment (1) Schizophrenia Code(s): F20.9 - Schizophrenia, unspecified Status: Acute - Plan Plan: Patient continues wtih stable mood, no psychotic symptoms. Continue current treatment and recommendations as per neurology consult. Continue to monitor mood and behavior. Discharge planning in progress. Justification for Continued Inpatient Stay: At risk for further decompensation at lower level of care.
[2018-06-21] MEDS ORDERED: MethylPREDNISolone Sod Suc Inj 250 MG in Sodium Chlor 0.9% Inj 100 ML IV.SIG ONE (21:00)
[2018-06-21] MEDS: traZODone 50 MG Tablet PO SCH (21:45)
[2018-06-21] MEDS: REMOVE OLD NICODERM (NICOTINE) PATCH T-DERMAL SCH (21:46)
[2018-06-22] MEDS: Lisinopril 20 MG Tablet PO SCH (08:59)
[2018-06-22] MEDS: Pregabalin 75 MG Capsule PO SCH ×2 (08:59→21:40)
--- NOTE | 2018-06-22 19:17 | P.PNPSY ---
Subjective Chief Complaint: Schizophrenia Remarks: Patient was seen and case discussed with nursing. Patient is pleasant and cooperative with exam. Describes her hallucinations today is "calm, a good thing." Per nursing, she continues to be internally stimulated throughout the day. She is eating and sleeping well. Religiously preoccupied Mental Status Examination Appearance: Appropriate Consciousness: Alert Orientation: x4 Motor Activity: Other (Somewhat psychomotor slowed) Speech: Slow Language: Other (Somewhat rambling) Fund of Knowledge: Inadequate Attention and Concentration: Easily distracted Memory: Impaired Mood: Appropriate Affect: Appropriate Thought Process & Associations: Circumstantial (At times) Thought Content: Appropriate Hallucination Type: None Delusion Type: None Suicidal Ideation: No Suicidal Plan: No Suicidal Intention: No Homicidal Ideation: No Homicidal Plan: No Homicidal Intention: No Insight: Fair Judgment: Impulsive Assessment and Plan - Assessment (1) Schizophrenia Code(s): F20.9 - Schizophrenia, unspecified Status: Acute - Plan Plan: Continue current treatment plan Justification for Continued Inpatient Stay: Patient would decompensate in a less restrictive setting
[2018-06-22] MEDS: traZODone 50 MG Tablet PO SCH (20:40)
[2018-06-22] MEDS: REMOVE OLD NICODERM (NICOTINE) PATCH T-DERMAL SCH (21:40)
[2018-06-23] MEDS: Pregabalin 75 MG Capsule PO SCH ×2 (08:14→20:41)
[2018-06-23] MEDS: Lisinopril 20 MG Tablet PO SCH (08:14)
--- NOTE | 2018-06-23 14:54 | P.PNPSY ---
Subjective Chief Complaint: Schizophrenia Remarks: Patient was seen and case discussed with nursing. Patient is pleasant and cooperative with exam. Continues to be religiously preoccupied and complaining of voices from God and the devil. She is compliant with her medications and behaving well on the unit. Somewhat somnolent throughout the day per nursing Mental Status Examination Appearance: Appropriate Consciousness: Alert Orientation: x4 Motor Activity: Other (Somewhat psychomotor slowed) Speech: Slow Language: Other (Somewhat rambling) Fund of Knowledge: Inadequate Attention and Concentration: Easily distracted Memory: Impaired Mood: Appropriate Affect: Appropriate Thought Process & Associations: Circumstantial (At times) Thought Content: Appropriate Hallucination Type: Auditory (The devil, God) Delusion Type: None Suicidal Ideation: No Suicidal Plan: No Suicidal Intention: No Homicidal Ideation: No Homicidal Plan: No Homicidal Intention: No Insight: Fair Judgment: Impulsive Assessment and Plan - Assessment (1) Schizophrenia Code(s): F20.9 - Schizophrenia, unspecified Status: Acute - Plan Plan: Continue current treatment plan Justification for Continued Inpatient Stay: Patient would decompensate in a less restrictive setting
[2018-06-23] MEDS: LORazepam 1 MG Tablet PO PRN (20:42)
[2018-06-23] MEDS: REMOVE OLD NICODERM (NICOTINE) PATCH T-DERMAL SCH (20:42)
[2018-06-23] MEDS: traZODone 50 MG Tablet PO SCH (20:42)
[2018-06-24] MEDS: Pregabalin 75 MG Capsule PO SCH ×2 (09:24→20:40)
[2018-06-24] MEDS: Lisinopril 20 MG Tablet PO SCH (09:30)
--- NOTE | 2018-06-24 18:23 | P.PNPSY ---
Subjective Chief Complaint: Schizophrenia Remarks: Patient seen for follow up; chart reviewed. Discussion with nursing staff reported that patient has been quiet, cooperative. Patient was found lying hospital bed noted B, cooperative. Patient states that she continues to have some weakness, but that the weekend went "alright" and her mood has been okay, denying any perceptional services, denying suicidal homicidal ideations. Patient looking forward for discharge soon to accept the facility. Patient continues to have interest in attending groups and activities. Review of Systems All other systems reviewed negative except as stated in HPI Mental Status Examination Appearance: Appropriate Consciousness: Alert Orientation: x4 Motor Activity: Other (Somewhat psychomotor slowed) Speech: Slow Language: Other (Somewhat rambling) Fund of Knowledge: Inadequate Attention and Concentration: Easily distracted Memory: Impaired Mood: Appropriate Affect: Appropriate Thought Process & Associations: Circumstantial (At times) Thought Content: Appropriate Hallucination Type: Auditory (The devil, God) Delusion Type: None Suicidal Ideation: No Suicidal Plan: No Suicidal Intention: No Homicidal Ideation: No Homicidal Plan: No Homicidal Intention: No Insight: Fair Judgment: Impulsive Assessment and Plan - Assessment (1) Schizophrenia Code(s): F20.9 - Schizophrenia, unspecified Status: Acute - Plan Plan: Patient continues with good behavioral control, no behavioral disturbances, no perceptual disturbances, no delusions, minimal rambling. Patient tolerated medications well. Continue recommendations as per medical and neurology consult. We will continue current treatment. Continue to monitor mood and behavior. Discharge planning a progress. Justification for Continued Inpatient Stay: At risk of further decompensation a lower level of care.
[2018-06-24] MEDS: REMOVE OLD NICODERM (NICOTINE) PATCH T-DERMAL SCH (20:41)
[2018-06-24] MEDS: traZODone 50 MG Tablet PO SCH (20:41)
[2018-06-25] MEDS: Lisinopril 20 MG Tablet PO SCH (10:29)
[2018-06-25] MEDS: Pregabalin 75 MG Capsule PO SCH ×2 (10:30→20:20)
--- NOTE | 2018-06-25 11:09 | P.PNPSY ---
Subjective Chief Complaint: Schizophrenia Remarks: Patient seen for follow, chart reviewed. Discussion nursing staff reported the patient with no behavioral issues has been calm and cooperative. Patient was found sitting hospital chair watching television noted to be good spirits. Patient excited about the possibility of patient being discharged to an accepting facility tomorrow. Patient reports feeling well, denies any physical complaints at this time but is concerned about her continued outpatient follow- up with neurology for her multiple sclerosis. Patient denies any perceptional services, denies any suicidal homicidal ideations. Review of Systems All other systems reviewed negative except as stated in HPI Mental Status Examination Appearance: Appropriate Consciousness: Alert Orientation: x4 Motor Activity: Other (Somewhat psychomotor slowed) Speech: Slow Language: Other (Somewhat rambling) Fund of Knowledge: Inadequate Attention and Concentration: Easily distracted Memory: Impaired Mood: Appropriate Affect: Appropriate Thought Process & Associations: Circumstantial (At times) Thought Content: Appropriate Hallucination Type: Auditory (The devil, God) Delusion Type: None Suicidal Ideation: No Suicidal Plan: No Suicidal Intention: No Homicidal Ideation: No Homicidal Plan: No Homicidal Intention: No Insight: Fair Judgment: Impulsive Assessment and Plan - Assessment (1) Schizophrenia Code(s): F20.9 - Schizophrenia, unspecified Status: Acute - Plan Plan: Patient this time continues with good behavioral control, stable mood and denying any psychotic symptoms at this time. Patient continue current treatment. Patient likely for discharge tomorrow when asked at the facility as bed available. Patient to continue recommendations as per medical and neurology consult. Monitor mood and behavior. Discharge planning a progress. Justification for Continued Inpatient Stay: At risk of further decompensation a lower level of care.
[2018-06-25] MEDS: traZODone 50 MG Tablet PO SCH (21:15)
[2018-06-25] MEDS: REMOVE OLD NICODERM (NICOTINE) PATCH T-DERMAL SCH (21:16)
[2018-06-26] MEDS: Pregabalin 75 MG Capsule PO SCH ×2 (11:43→20:48)
[2018-06-26] MEDS: Lisinopril 20 MG Tablet PO SCH (11:43)
--- NOTE | 2018-06-26 18:06 | P.PNPSY ---
Subjective Chief Complaint: Schizophrenia Remarks: Patient seen for follow up; chart reviewed. Discussion with nursing staff reported that patient with no behavioral issues. Patient was found lying hospital bed noted become cooperative. Patient noted be good spirits and excited that she will be dating since the facility. Patient reports feeling well, denies any perceptional services or delusions. Patient denies any SI or HI at this time. Review of Systems All other systems reviewed negative except as stated in HPI Mental Status Examination Appearance: Appropriate Consciousness: Alert Orientation: x4 Motor Activity: Other (Somewhat psychomotor slowed) Speech: Slow Language: Other (Somewhat rambling) Fund of Knowledge: Inadequate Attention and Concentration: Easily distracted Memory: Impaired Mood: Appropriate Affect: Appropriate Thought Process & Associations: Circumstantial (At times) Thought Content: Appropriate Hallucination Type: None Delusion Type: None Suicidal Ideation: No Suicidal Plan: No Suicidal Intention: No Homicidal Ideation: No Homicidal Plan: No Homicidal Intention: No Insight: Fair Judgment: Impulsive Assessment and Plan - Assessment (1) Schizophrenia Code(s): F20.9 - Schizophrenia, unspecified Status: Acute - Plan Plan: Patient this time with stable mood, denying any perceptional services or delusions. Patient looking forward for discharge soon. We will continue current treatment. We will continue to monitor mood and behavior. Discharge planning a progress. Justification for Continued Inpatient Stay: At risk of further decompensation a lower level of care.
[2018-06-26] MEDS: REMOVE OLD NICODERM (NICOTINE) PATCH T-DERMAL SCH (20:47)
[2018-06-26] MEDS: traZODone 50 MG Tablet PO SCH (20:48)
[2018-06-27] MEDS: Pregabalin 75 MG Capsule PO SCH ×2 (08:52→22:31)
[2018-06-27] MEDS: Lisinopril 20 MG Tablet PO SCH (08:53)
[2018-06-27] MEDS: traZODone 50 MG Tablet PO SCH (21:00)
--- NOTE | 2018-06-27 21:38 | P.PNPSY ---
Subjective Chief Complaint: Schizophrenia Remarks: Patient seen for follow up, chart reviewed. Discussion with nursing staff reported patient with no behavioral issues, cooperative [facility] staff. Patient found lying on hospital bed, states feeling excited to be discharged to facility soon. She continues to report good mood, denies any perceptual disturbances or delusions. Review of Systems All other systems reviewed negative except as stated in HPI Mental Status Examination Appearance: Appropriate Consciousness: Alert Orientation: x4 Motor Activity: Other (Somewhat psychomotor slowed) Speech: Slow Language: Other (Somewhat rambling) Fund of Knowledge: Inadequate Attention and Concentration: Easily distracted Memory: Impaired Mood: Appropriate Affect: Appropriate Thought Process & Associations: Circumstantial (At times) Thought Content: Appropriate Hallucination Type: None Delusion Type: None Suicidal Ideation: No Suicidal Plan: No Suicidal Intention: No Homicidal Ideation: No Homicidal Plan: No Homicidal Intention: No Insight: Fair Judgment: Impulsive Assessment and Plan - Assessment (1) Schizophrenia Code(s): F20.9 - Schizophrenia, unspecified Status: Acute - Plan Plan: Patient continues with stable mood, noted to be cooperative with treatment, no perceptual disturbances, no delusional material elicited. Patient waiting for acceptance to the facility. Monitor mood and behavior. Discharge planning in progress. Justification for Continued Inpatient Stay: At risk for further decompensation at lower level of care.
[2018-06-28] MEDS: REMOVE OLD NICODERM (NICOTINE) PATCH T-DERMAL SCH ×2 (00:16→20:07)
[2018-06-28] MEDS: Pregabalin 75 MG Capsule PO SCH ×2 (08:55→20:03)
[2018-06-28] MEDS: Lisinopril 20 MG Tablet PO SCH (08:56)
[2018-06-28] MEDS: traZODone 50 MG Tablet PO SCH (20:04)
--- NOTE | 2018-06-28 20:13 | P.PNPSY ---
Subjective Chief Complaint: Schizophrenia Remarks: Patient seen for follow up; chart reviewed. Discussion with nursing staff reported that patient with no behavioral issues has been compliant with treatment and attending groups. Patient was found in her room noted become cooperative. Patient states that she is feeling "good" waiting to be transferred to the residential facility states feeling a little weaker today. Patient denies any perceptional disturbances, denies any suicidal homicidal ideations. She reports sleeping well, eating and drinking well. Review of Systems All other systems reviewed negative except as stated in HPI Mental Status Examination Appearance: Appropriate Consciousness: Alert Orientation: x4 Motor Activity: Other (Somewhat psychomotor slowed) Speech: Slow Language: Adequate Fund of Knowledge: Inadequate Attention and Concentration: Easily distracted Memory: Impaired Mood: Appropriate Affect: Appropriate Thought Process & Associations: Intact, Linear Thought Content: Appropriate Hallucination Type: None Delusion Type: None Suicidal Ideation: No Suicidal Plan: No Suicidal Intention: No Homicidal Ideation: No Homicidal Plan: No Homicidal Intention: No Insight: Fair Judgment: Impulsive Assessment and Plan - Assessment (1) Schizophrenia Code(s): F20.9 - Schizophrenia, unspecified Status: Acute - Plan Plan: Patient this time reporting weakness, neurology following. No behavioral disturbances, stable mood, denying any perceptional disturbances or delusions. No suicidal homicidal ideations. Continue current treatment. Continue to monitor mood and behavior. Discharge planning in progress. Justification for Continued Inpatient Stay: At risk for further decompensation if at lower level of care.
[2018-06-29] MEDS: Lisinopril 20 MG Tablet PO SCH (10:53)
[2018-06-29] MEDS: Pregabalin 75 MG Capsule PO SCH ×2 (11:00→21:52)
--- NOTE | 2018-06-29 12:44 | P.PNPSY ---
Subjective Chief Complaint: Schizophrenia Remarks: Pt seen and discussed with staff. Chart reviewed. Pt continues to have methodist preoccupation but has not expressed HI or SI. Mood has been calm and pt has not been agitated. Invega and trazodone held x 2 days due to hypotension. Mental Status Examination Appearance: Appropriate Consciousness: Alert Orientation: x4 Motor Activity: Other (Somewhat psychomotor slowed) Speech: Slow Language: Adequate Fund of Knowledge: Inadequate Attention and Concentration: Easily distracted Memory: Impaired Mood: Appropriate Affect: Appropriate Thought Process & Associations: Intact, Linear Thought Content: Appropriate Hallucination Type: None Delusion Type: None Suicidal Ideation: No Suicidal Plan: No Suicidal Intention: No Homicidal Ideation: No Homicidal Plan: No Homicidal Intention: No Insight: Fair Judgment: Impulsive Assessment and Plan - Assessment (1) Schizophrenia Code(s): F20.9 - Schizophrenia, unspecified Status: Acute - Plan Plan: Continue current tx plan. Consult hospitalist for hypotension. Justification for Continued Inpatient Stay: impairments in reality testing.
[2018-06-29] MEDS: traZODone 50 MG Tablet PO SCH (21:51)
[2018-06-29] MEDS: REMOVE OLD NICODERM (NICOTINE) PATCH T-DERMAL SCH (21:52)
--- NOTE | 2018-06-30 08:28 | P.PNPSY ---
Subjective Chief Complaint: Schizophrenia Remarks: Medical record reviewed and discussed with nursing. Patient is in bed and hypotensive. Last B/P . Hospitalist has seen patient this morning and if her blood pressure does not increase she may be moved to for hydration. Invega has been held for 2 days due to hypotension and will continue to hold. CATARINA Murphy and CATARINA Olsen in room with patient and will continue to help her hydrate. Patient denies AVH. States that she is looking forward to returning to [facility]. Review of Systems All other systems reviewed negative except as stated in HPI Mental Status Examination Appearance: Appropriate Consciousness: Alert Orientation: x4 Motor Activity: Other (Somewhat psychomotor slowed) Speech: Slow Language: Adequate Fund of Knowledge: Inadequate Attention and Concentration: Easily distracted Memory: Impaired Mood: Appropriate Affect: Appropriate Thought Process & Associations: Intact, Linear Thought Content: Appropriate Hallucination Type: None Delusion Type: None Suicidal Ideation: No Suicidal Plan: No Suicidal Intention: No Homicidal Ideation: No Homicidal Plan: No Homicidal Intention: No Insight: Fair Judgment: Impulsive Assessment and Plan - Assessment (1) Schizophrenia Code(s): F20.9 - Schizophrenia, unspecified Status: Acute - Plan Plan: Continue current tx plan. Consult hospitalist for hypotension. Justification for Continued Inpatient Stay: Moving patient to a less restrictive environment may result in her decompensation. She may need to be transferred to for fluids, will continue to monitor her blood pressure. Patient wants to continue to hydrate orally.
[2018-06-30] MEDS: Pregabalin 75 MG Capsule PO SCH ×2 (09:14→20:09)
--- NOTE | 2018-06-30 09:21 | P.PN ---
Subjective Interval history: This is a reconsult for low blood pressure. Patient is noted with down trending blood pressure since 06/09, this morning 73/52. During her initial admission, she did have some low blood pressures down to 90s over 50s. Currently Invega and Lisinopril have been on hold for last 2 days. Complains of occ. dizziness. She is weak, but this is not new. PT working with pt. Hx of MS, has been on Aubagio but this has been on hold due to elevated LFTs, which has now resolved. Was seen by neurology earlier in admission. Pt. denies any cp , sob. Physical Exam Vital signs: Vital Signs 06/29/18 10:52 06/29/18 16:00 06/29/18 19:49 Temperature 98.2 F Pulse Rate 80 Respiratory Rate 16 Blood Pressure 87/55 L 99/57 L 100/81 Pulse Oximetry 97 06/29/18 20:00 06/30/18 01:42 06/30/18 06:40 Temperature 97.9 F Pulse Rate 67 58 L Respiratory Rate 16 13 Blood Pressure 101/53 L 73/52 L Pulse Oximetry 94 L 06/30/18 08:39 Temperature Pulse Rate 57 L Respiratory Rate Blood Pressure 104/55 L Pulse Oximetry Intake & Output 06/29/18 06/30/18 06/30/18 18:59 06:59 18:59 Intake Total 480 / 480 100 / 100 Balance 480 / 480 100 / 100 Intake: Oral 480 / 480 0 / 0 Oral Supplement 100 / 100 Other: # Voids 2 Date of Last Bowel Movement 06/24/18 # Bowel Movements 0 Narrative: GENERAL: Patient is a well developed AA female, appears to be in no acute distress. HEAD:Normocephalic. EYES: Pupils equal round and reactive. NECK: Trachea midline. No JVD. CARDIOVASCULAR: Regular rate and rhythm without murmurs, gallops, or rubs. RESPIRATORY: Clear to auscultation. Breath sounds equal bilaterally. No wheezes , rales, or rhonchi. GASTROINTESTINAL: Abdomen soft, non-tender, nondistended. MUSCULOSKELETAL: Extremities without clubbing, cyanosis. Kyphosis noted. No edema NEUROLOGICAL: Awake and alert. 3 out of 5 muscle strength in bilateral lower extremities. Results - Labs CBC & Chem 7: 06/21/18 07:56 06/21/18 07:56 Assessment and Plan - Assessment (1) HTN (hypertension) Code(s): I10 - Essential (primary) hypertension Status: Acute (2) Schizophrenia Code(s): F20.9 - Schizophrenia, unspecified Status: Acute (3) Multiple sclerosis Code(s): G35 - Multiple sclerosis Status: Acute (4) Hypotension (arterial) Code(s): I95.9 - Hypotension, unspecified Status: Acute - Plan 52-year-old AA female with PMH significant for HTN, multiple sclerosis, and schizophrenia who presented to the ER on a voluntary basis for psychiatric evaluation. Apparently patient had been off of her Invega for the past year. She reported hallucinations with racing thoughts and inability to concentrate. She was cleared medically in the ER and admitted to inpatient psychiatry for further recommendations. [facility] consulted to assist with medical management. Hypotension pt. noted with down trending blood pressure since June 27, today 73/52. Patient complains of dizziness. During initial admission, patient did have low blood pressures as low as 90s. Possible causes could be meds, MS flare. -Lisinopril and Invega currently on hold -Encourage p.o. fluid intake We will have RN recheck blood pressure at 8:00, if continues less than 90, she will need to go to med psych for IV fluids -RN to contact Dr. Villarreal tomorrow, patient may need to be restarted back on Aubagio -will check CBC and CMP -Orthostatic x 1 BLE weakness, edema. --resolved -Possible MS related -US Bilat Lower extremities DVT negative -Lasix given, improved was DC'd, Monitor legs for edema. Patient may need lasix po if edema comes back. Schizophrenia -Managed by psychiatry team. -Invega on hold due to hypotension Multiple sclerosis -Medication not on formulary. Initially family had been asked to bring the hospital however they were unable to contact anybody. -Continue with PT. -[facility] checked last refill of Hydrocodone-Acetaminophen 10/325 was on 04/30 for [address] Cole Llamas likely her PCP. -Continue on lower dose of Lortab -Neurology consulted, Dr. Villarreal. Appreciate recommendation. MRI brain and cervical spine were done. Recommended MRI in the cervical MRI and to place patient back on Lyrica for neuropathic pain. Also recommending holding Aubagio as the liver enzymes are elevated -Head MRI was done and showed periventricular white matter changes that would be consistent with a pneumonic process. There is no parenchymal hemorrhage acute infarction there is no abnormal contrast enhancement. Ventricular size is appropriate. Posterior fossa is unremarkable. -Cervical spine CT showed minimal increased signal in the upper cervical cord at the C2-C3 level would be consistent with a demyelinating process. There is no cord expansion to suggest neoplastic process. -RN to consult Dr. Villarreal, pt. may need to be restarted on Aubagio HTN pt. now hypotensive -continue to hold Lisinopril Transaminitis, mild -Avoid hepatotoxin, possibly secondary to Aubagio use -Recheck LFTs improved 06/17 -check LFTs Cannabis use -Cessation encouraged DVT prophylaxis-ambulation Follow up on labs Dr. Villarreal to be reconsulted Code Status: Full code Discussed Condition With: RN, pt (4) Hypotension (arterial) Qualifiers: Hypotension type: other hypotension type Qualified Code(s): I95.89 - Other hypotension
[2018-06-30 12:48] LABS: Anion Gap 7 meq/L (5-15); Aspartate Aminotransferase 10 U/L (15-37); Blood Urea Nitrogen 13 mg/dL (7-18); Calcium 8.2 mg/dL (8.5-10.1); Carbon Dioxide 26.7 meq/L (21.0-32.0); Chloride 107 meq/L (98-107); Glomerular Filtration Rate Greater Than 89 mL/min (>89); Glucose,Random 74 mg/dL (74-106); Sodium 141 meq/L (136-145)
[2018-06-30 12:49] LABS: Alanine Aminotransferase 27 U/L (10-53)
[2018-06-30 12:51] LABS: Alkaline Phosphatase 96 U/L (45-117); Total Protein 6.6 g/dL (6.4-8.2)
[2018-06-30] MEDS: traZODone 50 MG Tablet PO SCH (20:09)
[2018-07-01 06:23] LABS: Hematocrit 33.2 % (35.0-46.0); Mean Corpuscular HGB Conc 33.3 % (32.0-36.0); Mean Corpuscular Hemoglobin 29.5 pg (27.0-34.0); Mean Corpuscular Volume 88.8 fL (80.0-100.0); Mean Platelet Volume 8.4 fL (7.0-11.0); Platelet Count 156 th/mm3 (150-450); Red Blood Count 3.73 mil/mm3 (4.00-5.30); Red Cell Distribution Width 14.6 % (11.6-17.2); White Blood Count 4.2 th/mm3 (4.0-11.0)
[2018-07-01] MEDS: Pregabalin 75 MG Capsule PO SCH ×2 (09:14→21:01)
--- NOTE | 2018-07-01 12:40 | P.PN ---
Subjective Interval history: Follow up for low BP: Patient seen and examined in dining room. Awake, alert oriented x2. Per nursing report, blood pressure 81/46 when patient woke up, rechecked while patient was sitting up and awake it was 111/57. Patient remains weak, this is unchanged. Requesting Novinger for leg pain. No chest pain , no shortness of breath. Has occasional dizziness. Physical Exam Vital signs: Vital Signs 07/01/18 04:00 07/01/18 06:00 07/01/18 09:49 Temperature 98.5 F 98.5 F Pulse Rate 65 79 Respiratory Rate 24 24 Blood Pressure 81/46 L 81/46 L 111/57 L Pulse Oximetry 98 98 Intake & Output 06/30/18 07/01/18 07/01/18 18:59 06:59 18:59 Intake Total 1200 / 1200 960 / 960 Balance 1200 / 1200 960 / 960 Weight 63.8 kg Intake: Oral 1200 / 1200 960 / 960 Other: # Voids 3 2 Narrative: GENERAL: Patient is a well developed AA female, appears to be in no acute distress. HEAD:Normocephalic. EYES: Pupils equal round and reactive. NECK: Trachea midline. No JVD. CARDIOVASCULAR: Regular rate and rhythm without murmurs, gallops, or rubs. RESPIRATORY: Clear to auscultation. Breath sounds equal bilaterally. No wheezes , rales, or rhonchi. GASTROINTESTINAL: Abdomen soft, non-tender, nondistended. MUSCULOSKELETAL: Extremities without clubbing, cyanosis. Kyphosis noted. No edema NEUROLOGICAL: Awake and alert. 3 out of 5 muscle strength in bilateral lower extremities. Results - Labs CBC & Chem 7: 07/01/18 05:25 06/30/18 10:21 Laboratory Results - last 24 hr 06/30/18 07/01/18 10:21 05:25 WBC 4.2 RBC 3.73 L Hgb 11.0 L Hct 33.2 L MCV 88.8 MCH 29.5 MCHC 33.3 RDW 14.6 Plt Count 156 MPV 8.4 Sodium 141 Potassium 4.0 Chloride 107 Carbon Dioxide 26.7 Anion Gap 7 BUN 13 Creatinine 0.62 Estimated GFR Greater than 89 Random Glucose 74 Calcium 8.2 L Total Bilirubin 0.6 AST 10 L ALT 27 Alkaline Phosphatase 96 Total Protein 6.6 Albumin 3.0 L Assessment and Plan - Assessment (1) HTN (hypertension) Code(s): I10 - Essential (primary) hypertension Status: Acute (2) Schizophrenia Code(s): F20.9 - Schizophrenia, unspecified Status: Acute (3) Multiple sclerosis Code(s): G35 - Multiple sclerosis Status: Acute (4) Hypotension (arterial) Code(s): I95.9 - Hypotension, unspecified Status: Acute - Plan 52-year-old AA female with PMH significant for HTN, multiple sclerosis, and schizophrenia who presented to the ER on a voluntary basis for psychiatric evaluation. Apparently patient had been off of her Invega for the past year. She reported hallucinations with racing thoughts and inability to concentrate. She was cleared medically in the ER and admitted to inpatient psychiatry for further recommendations. [facility] consulted to assist with medical management. Hypotension pt. noted with down trending blood pressure since June 27, today 73/52. Patient complains of dizziness. During initial admission, patient did have low blood pressures as low as 90s. Possible causes could be meds, MS flare. -Encourage p.o. fluid intake -RN to contact Dr. Villarreal today, patient may need to be restarted back on Aubagio -labs reviewed, stable. -continue to hold Lisinopril for now. BP for the most part has been low. -No need to transfer to med psych unless BP persistently under 80. Drinking fluids. -If blood pressure starts trending up greater than 130, will resume lisinopril at lower dosage. BLE weakness, edema. --resolved -Possible MS related -US Bilat Lower extremities DVT negative -Lasix given, improved was DC'd, Monitor legs for edema. Patient may need lasix po if edema comes back. Schizophrenia -Managed by psychiatry team. -Invega has been resumed Multiple sclerosis -Medication not on formulary. Initially family had been asked to bring the hospital however they were unable to contact anybody. -Continue with PT. -E-force checked last refill of Hydrocodone-Acetaminophen 10/325 was on 04/30 for [address] Cole Llamas likely her PCP. -Continue on lower dose of Lortab -Neurology consulted, Dr. Villarreal. Appreciate recommendation. MRI brain and cervical spine were done. Recommended MRI in the cervical MRI and to place patient back on Lyrica for neuropathic pain. Also recommending holding Aubagio as the liver enzymes are elevated -Head MRI was done and showed periventricular white matter changes that would be consistent with a pneumonic process. There is no parenchymal hemorrhage acute infarction there is no abnormal contrast enhancement. Ventricular size is appropriate. Posterior fossa is unremarkable. -Cervical spine CT showed minimal increased signal in the upper cervical cord at the C2-C3 level would be consistent with a demyelinating process. There is no cord expansion to suggest neoplastic process. -RN to consult Dr. Villarreal, pt. may need to be restarted on Aubagio HTN pt. now hypotensive -continue to hold Lisinopril Transaminitis, mild -Avoid hepatotoxin, possibly secondary to Aubagio use -LFTs have improved. Cannabis use -Cessation encouraged DVT prophylaxis-ambulation (4) Hypotension (arterial) Qualifiers: Hypotension type: other hypotension type Qualified Code(s): I95.89 - Other hypotension
--- NOTE | 2018-07-01 16:46 | P.TTN ---
- Patient Problems Problems: 1. Discharge planning 2. Medication compliance 3. Knowledge deficit 4. Lack of coping skills - Progress Toward Goals Provider Present: Dr. Jhonatan Omalley Provider Input: 07/01-- Stoppedcertain medication, increased weakness, neurologist consult requested. Needs placement. We have been trying to get ahold of her brother whom has no insight. Nurse(s) Present: Noris Nurse Input: Pt is appropriate, cooperative with treatment, sleeps well, and med compliant Psychiatric Counselors Present: Bailey Peters LCSW, Dony Lim Jr., [facility], Other Psychiatric Therapist Input: 07/01 Paz - Patient contiues to be focused on discharge, pleasant, cooperative. Paz -In need of placment with SNF due to fall risk,engages, at times pleasantly confused, cooperative, no beahviors; [facility] refused her because they did not want to pay for her MS medication. Group Spec/RT/OT/FOUNTAIN Present: АЛЕКСАНДР Burrows, Alin Calix, OT Group Spec/RT/OT/FOUNTAIN Input: 07/01 - attends select groups. Appropriate, attends groups, follows rules, engages in projects, is social, insightful in groups - Discharge Plan Care Coordination Program In need of snf- possible placement issue due to MS - [place] medicaid application being filed - Documentation Teaching Recipient: Patient
--- NOTE | 2018-07-01 22:05 | P.PNPSY ---
Subjective Chief Complaint: Schizophrenia Remarks: Patient seen for follow, chart reviewed. Discussion nursing staff reported the patient with no behavioral disturbances, compliant with treatment. Patient was found sitting hospital chair noted B, cooperative. Patient states that she continues to feel weak at times but reports her mood has been good denying any perceptional disturbances or delusions at this time patient denies any suicidal homicidal ideations. Patient wanting to be discharged to her residential facility soon. Review of Systems All other systems reviewed negative except as stated in HPI Mental Status Examination Appearance: Appropriate Consciousness: Alert Orientation: x4 Motor Activity: Other (Somewhat psychomotor slowed) Speech: Slow Language: Adequate Fund of Knowledge: Inadequate Attention and Concentration: Easily distracted Memory: Impaired Mood: Appropriate Affect: Appropriate Thought Process & Associations: Intact, Linear Thought Content: Appropriate Hallucination Type: None Delusion Type: None Suicidal Ideation: No Suicidal Plan: No Suicidal Intention: No Homicidal Ideation: No Homicidal Plan: No Homicidal Intention: No Insight: Fair Judgment: Impulsive Assessment and Plan - Assessment (1) Schizophrenia Code(s): F20.9 - Schizophrenia, unspecified Status: Acute - Plan Plan: Patient continues to maintain stable mood, denying any perceptional services or delusions. Patient blood pressure seems to be improving, continue to be followed by primary medical team. Patient continues report feeling weak. We will await neurology recommendations regards to patient restarting MS medications. Need to continue current treatment. Continue to monitor for episodes of hypotension. Continue to encourage patient to maintain adequate fluid intake. Discharge Justification for Continued Inpatient Stay: At risk of further decompensation at lower level of care.
[2018-07-01] MEDS: REMOVE OLD NICODERM (NICOTINE) PATCH T-DERMAL SCH (22:50)
[2018-07-02] MEDS: Pregabalin 75 MG Capsule PO SCH ×2 (09:28→20:35)
--- NOTE | 2018-07-02 16:43 | P.PN ---
Subjective Interval history: Follow-up visit hypotension, MS. Patient seen and examined today sitting in a chair. Patient states she is doing well. She is trying to hydrate and eat well. Skin appears to be really dry. Continues to be weak. Denies pain and discomfort. Denies SOB/ dyspnea. Denies chest pain, palpitations, headaches, dizziness. Denies fevers, chills, n/v/d. Physical Exam Vital signs: Vital Signs 07/01/18 18:14 07/02/18 05:57 07/02/18 09:25 Temperature 97.9 F 98.4 F Pulse Rate 65 57 L 60 Respiratory Rate 18 16 Blood Pressure 125/65 89/47 L 119/7 L Pulse Oximetry 97 94 L Intake & Output 07/01/18 07/02/18 07/02/18 18:59 06:59 18:59 Intake Total 600 / 600 Balance 600 / 600 Intake: Oral 600 / 600 Other: # Voids 4 Narrative: GENERAL: Patient is a well developed AA female, appears to be in no acute distress. SKIN: Warm and extremely dry. HEAD:Normocephalic. EYES: Pupils equal round and reactive. NECK: Trachea midline. CARDIOVASCULAR: Regular rate and rhythm without murmurs, gallops, or rubs. RESPIRATORY: Clear to auscultation. Breath sounds equal bilaterally. No wheezes , rales, or rhonchi. GASTROINTESTINAL: Abdomen soft, non-tender, nondistended. MUSCULOSKELETAL: Extremities without clubbing, cyanosis. Kyphosis noted. No edema NEUROLOGICAL: Awake and alert. 3 out of 5 muscle strength in bilateral lower extremities. Results - Labs CBC & Chem 7: 07/01/18 05:25 06/30/18 10:21 Assessment and Plan - Assessment (1) HTN (hypertension) Code(s): I10 - Essential (primary) hypertension Status: Acute (2) Schizophrenia Code(s): F20.9 - Schizophrenia, unspecified Status: Acute (3) Multiple sclerosis Code(s): G35 - Multiple sclerosis Status: Acute (4) Hypotension (arterial) Code(s): I95.9 - Hypotension, unspecified Status: Acute - Plan 52-year-old AA female with PMH significant for HTN, multiple sclerosis, and schizophrenia who presented to the ER on a voluntary basis for psychiatric evaluation. Apparently patient had been off of her Invega for the past year. She reported hallucinations with racing thoughts and inability to concentrate. Admitted to inpatient psychiatry for further recommendations. [facility] consulted to assist with medical management. Hypotension -Review BP trend patient on and off with hypotension especially early in the morning. Appears to be when patient is resting. -Repeat BP in the afternoons and midday has been within normal. -New to encourage fluid hydration -Lower Pain meds to [place] 5/325mg Schizophrenia -Managed by psychiatry team. -On hold Multiple sclerosis Bilateral lower extremity weakness -Unable to continue home dose of Aubagio as this medication is not on formulary, patient does not have this with her but will get the medication from family member. Has been trying to get hold of the family member to get the medication from home. Will Hold for now. -PT/OT eval and treat -E-force checked last refill of Hydrocodone-Acetaminophen 10/325 was on 04/30 for [address] Cole Llamas likely her PCP. -Continue on lower dose of Lortab -Head MRI was done and showed periventricular white matter changes that would be consistent with a pneumonic process. There is no parenchymal hemorrhage acute infarction there is no abnormal contrast enhancement. Ventricular size is appropriate. Posterior fossa is unremarkable. -Cervical spine CT showed minimal increased signal in the upper cervical cord at the C2-C3 level would be consistent with a demyelinating process. There is no cord expansion to suggest neoplastic process. -US Bilat Lower extremities DVT negative -Neurology consulted, Dr. Villarreal. Appreciate recommendation. Recommends MRI in the cervical MRI and to place patient back on Lyrica for neuropathic pain. Also recommending holding Aubagio as the liver enzymes are elevated. Patient was previously on IV Solu-Medrol. -RN contacted neurologist, states will need to be restarted on Aubagio or switch over to a different medication. We will leave the decision of MS medications to neurologist HTN, controlled -Continue home dose of Lisinopril Transaminitis, mild -Avoid hepatotoxin, possibly secondary to Aubagio use -Recheck LFTs improving Cannabis use -Cessation encouraged DVT prophylaxis-ambulation Stable from Hospitalist standpoint. We will sign off. Reconsult as needed. Thank you. Code Status: Full code Discussed Condition With: Patient, nursing Discharge Planning: DC disposition by primary team (4) Hypotension (arterial) Qualifiers: Hypotension type: other hypotension type Qualified Code(s): I95.89 - Other hypotension
[2018-07-02 16:44] LABS: Bacteria,Urine Moderate /hpf; Bilirubin,Urine Negative (Negative); Clarity,Urine Clear (Clear); Color,Urine Straw (Yellw/Straw); Glucose,Urine (UA) Negative (Negative); Leukocyte Esterase,Urine Negative (Negative); Nitrite,Urine Negative (Negative); Specific Gravity,Urine 1.008 (1.002-1.035); Squamous Epithelial Cell,Urine 1 /hpf (0-5)
[2018-07-02] MEDS: REMOVE OLD NICODERM (NICOTINE) PATCH T-DERMAL SCH (22:35)
--- NOTE | 2018-07-02 23:06 | P.PNPSY ---
Subjective Chief Complaint: Schizophrenia Remarks: Patient seen for follow up; chart reviewed. Discussion with nursing staff reported patient blood pressure improving, continues to be noted to be weak. Patient found sitting on hospital chair, noted to be weak but states feeling better. Patient denies any psychotic symptoms, has maintained stable mood. Review of Systems Constitutional: Reports weakness Mental Status Examination Appearance: Appropriate Consciousness: Alert Orientation: x4 Motor Activity: Other (Somewhat psychomotor slowed) Speech: Slow Language: Adequate Fund of Knowledge: Inadequate Attention and Concentration: Easily distracted Memory: Impaired Mood: Appropriate Affect: Appropriate Thought Process & Associations: Intact, Linear Thought Content: Appropriate Hallucination Type: None Delusion Type: None Suicidal Ideation: No Suicidal Plan: No Suicidal Intention: No Homicidal Ideation: No Homicidal Plan: No Homicidal Intention: No Insight: Fair Judgment: Impulsive Assessment and Plan - Assessment (1) Schizophrenia Code(s): F20.9 - Schizophrenia, unspecified Status: Acute - Plan Plan: Patient continues with generalized weakness, continue to assist patient with ADLs. Unclear if patient should be restarted on Aubagio or alternative medication, will await clarification from neurology. Continue recommendations as per primary medical team. Discharge planning in progress. Justification for Continued Inpatient Stay: At risk for further decompensation at lower level of care.
[2018-07-03] MEDS: Pregabalin 75 MG Capsule PO SCH ×2 (08:51→21:41)
[2018-07-03] MEDS ORDERED: TERIFLUNOMIDE 14 MG PO SCH (09:00)
--- NOTE | 2018-07-03 12:18 | P.PNPSY ---
Subjective Chief Complaint: Schizophrenia Remarks: Patient seen today in day room with nurse Katharine. Chart reviewed. Patient compliant medication. Patient sitting in [place] chair eating her lunch patient somewhat intense today perseverating about possibility of her having to pay $ 7000 to stay in her correction. We will check with patient's counselor. Reassured patient that we would investigate this. Review of Systems All other systems reviewed negative except as stated in HPI Mental Status Examination Appearance: Appropriate Consciousness: Alert Orientation: x4 Motor Activity: Other (Somewhat psychomotor slowed) Speech: Slow Language: Adequate Fund of Knowledge: Inadequate Attention and Concentration: Easily distracted Memory: Impaired Mood: Appropriate Affect: Appropriate Thought Process & Associations: Intact, Linear Thought Content: Appropriate Hallucination Type: None Delusion Type: None Suicidal Ideation: No Suicidal Plan: No Suicidal Intention: No Homicidal Ideation: No Homicidal Plan: No Homicidal Intention: No Insight: Fair Judgment: Impulsive Assessment and Plan - Assessment (1) Schizophrenia Code(s): F20.9 - Schizophrenia, unspecified Status: Acute - Plan Plan: Patient remained somewhat perseverative paranoid and irritable today. Compliant medication. Justification for Continued Inpatient Stay: At this time patient would decompensate a place to a lower level of care Discharge Planning: To be determined
--- NOTE | 2018-07-03 16:49 | P.PN ---
Subjective Interval history: Follow-up visit hypotension, MS. Patient seen and examined today sitting in a chair. Patient states she is doing well. Denies pain and discomfort. Denies SOB/ dyspnea. Denies chest pain, palpitations, headaches, dizziness. Denies fevers, chills, n/v/d. Physical Exam Vital signs: Vital Signs 07/02/18 18:31 07/02/18 20:00 07/03/18 06:00 Temperature 98.2 F 98.6 F Pulse Rate 81 66 Respiratory Rate 16 17 20 Blood Pressure 143/97 H 116/70 Pulse Oximetry 100 98 Intake & Output 07/02/18 07/03/18 07/03/18 18:59 06:59 18:59 Intake Total 960 / 960 340 / 340 240 / 240 Balance 960 / 960 340 / 340 240 / 240 Intake: Oral 960 / 960 240 / 240 240 / 240 Oral Supplement 100 / 100 Other: # Voids 2 2 Narrative: GENERAL: Patient is a well developed AA female, appears to be in no acute distress. SKIN: Warm and extremely dry. HEAD:Normocephalic. EYES: Pupils equal round and reactive. NECK: Trachea midline. CARDIOVASCULAR: Regular rate and rhythm without murmurs, gallops, or rubs. RESPIRATORY: Clear to auscultation. Breath sounds equal bilaterally. No wheezes , rales, or rhonchi. GASTROINTESTINAL: Abdomen soft, non-tender, nondistended. MUSCULOSKELETAL: Extremities without clubbing, cyanosis. Kyphosis noted. No edema NEUROLOGICAL: Awake and alert. 3 out of 5 muscle strength in bilateral lower extremities. Results - Labs CBC & Chem 7: 07/01/18 05:25 06/30/18 10:21 Microbiology 07/02/18 15:32 Clean Catch Urine Urine Culture - Preliminary Immature growth - reincubate Assessment and Plan - Assessment (1) HTN (hypertension) Code(s): I10 - Essential (primary) hypertension Status: Acute (2) Schizophrenia Code(s): F20.9 - Schizophrenia, unspecified Status: Acute (3) Multiple sclerosis Code(s): G35 - Multiple sclerosis Status: Acute (4) Hypotension (arterial) Code(s): I95.9 - Hypotension, unspecified Status: Acute - Plan 52-year-old AA female with PMH significant for HTN, multiple sclerosis, and schizophrenia who presented to the ER on a voluntary basis for psychiatric evaluation. Apparently patient had been off of her Invega for the past year. She reported hallucinations with racing thoughts and inability to concentrate. Admitted to inpatient psychiatry for further recommendations. [facility] consulted to assist with medical management. Hypotension HTN, Hx -Continue home dose of Lisinopril -Review BP trend patient on and off with hypotension especially early in the morning. Appears to be when patient is resting. -Repeat BP in the afternoons and midday has been within normal. -New to encourage fluid hydration -Lower Pain meds to [place] 5/325mg -Discussed with nursing to take BP when patient is up and awake. Schizophrenia -Managed by psychiatry team. -On hold Multiple sclerosis Bilateral lower extremity weakness -PT/OT eval and treat -E-force checked last refill of Hydrocodone-Acetaminophen 10/325 was on 04/30 for [address] Cole Llamas likely her PCP. -Continue on lower dose of Lortab -Head MRI was done and showed periventricular white matter changes that would be consistent with a pneumonic process. There is no parenchymal hemorrhage acute infarction there is no abnormal contrast enhancement. Ventricular size is appropriate. Posterior fossa is unremarkable. -Cervical spine CT showed minimal increased signal in the upper cervical cord at the C2-C3 level would be consistent with a demyelinating process. There is no cord expansion to suggest neoplastic process. -US Bilat Lower extremities DVT negative -Neurology consulted, Dr. Villarreal. Appreciate recommendation. Recommends MRI in the cervical MRI and to place patient back on Lyrica for neuropathic pain. Also recommending holding Aubagio as the liver enzymes are elevated. Patient was previously on IV Solu-Medrol. -RN contacted neurologist, states will need to be restarted on Aubagio or switch over to a different medication. We will leave the decision of MS medications to neurologist Transaminitis, mild -Avoid hepatotoxin, possibly secondary to Aubagio use -Recheck LFTs improving Cannabis use -Cessation encouraged DVT prophylaxis-ambulation Full Code Discussed with patient, nursing Stable from Hospitalist standpoint. We will sign off. Reconsult as needed. Thank you. Discharge Planning: DC disposition by primary team (4) Hypotension (arterial) Qualifiers: Hypotension type: other hypotension type Qualified Code(s): I95.89 - Other hypotension
[2018-07-04] MEDS: REMOVE OLD NICODERM (NICOTINE) PATCH T-DERMAL SCH ×2 (00:31→22:00)
[2018-07-04] MEDS: Pregabalin 75 MG Capsule PO SCH ×2 (08:59→20:14)
--- NOTE | 2018-07-04 10:13 | P.PNPSY ---
Subjective Chief Complaint: Schizophrenia Remarks: Patient seen in her room with nurse and medical student Isela, chart reviewed, patient compliant medications. Patient calmer more cooperative and pleasant today states she slept fairly well last night. Denies voices or visions suicidality homicidality. She did show some mild anxiety when discussing placement issues. For now continue treatment Review of Systems All other systems reviewed negative except as stated in HPI Mental Status Examination Appearance: Appropriate Consciousness: Alert Orientation: x4 Motor Activity: Other (Somewhat psychomotor slowed) Speech: Slow Language: Adequate Fund of Knowledge: Inadequate Attention and Concentration: Easily distracted Memory: Impaired Mood: Appropriate Affect: Appropriate Thought Process & Associations: Intact, Linear Thought Content: Appropriate Hallucination Type: None Delusion Type: None Suicidal Ideation: No Suicidal Plan: No Suicidal Intention: No Homicidal Ideation: No Homicidal Plan: No Homicidal Intention: No Insight: Fair Judgment: Impulsive Assessment and Plan - Assessment (1) Schizophrenia Code(s): F20.9 - Schizophrenia, unspecified Status: Acute - Plan Plan: Patient, I spent more cooperative today denying suicidality homicidality voice or visions the showing some anxiety related to placement issues. For now continue treatment Justification for Continued Inpatient Stay: At this time patient would decompensate if not placed in an appropriate level of care Discharge Planning: To be determined
[2018-07-05] MEDS: Pregabalin 75 MG Capsule PO SCH ×2 (09:57→20:29)
--- NOTE | 2018-07-05 20:48 | P.PNPSY ---
Subjective Chief Complaint: Schizophrenia Remarks: Patient seen for follow, chart reviewed. Discussion with nursing staff reported the patient with no behavioral changes, has become cooperative. Patient was found lying in hospital chair noted B, cooperative. Patient states that she is feeling "okay" but reports continuing feeling weak and had trouble with eating her meals today. Patient denies any suicidal homicidal ideations, denies any perceptional services. Patient mentions having visited by a congressional representative from an assisted living facility which she hopes she is able to get into. Patient also mentions that her family is also willing to explore the possibility of her staying with them with assistance. Review of Systems All other systems reviewed negative except as stated in HPI Mental Status Examination Appearance: Appropriate Consciousness: Alert Orientation: x4 Motor Activity: Other (Somewhat psychomotor slowed) Speech: Slow Language: Adequate Fund of Knowledge: Inadequate Attention and Concentration: Easily distracted Memory: Impaired Mood: Appropriate Affect: Appropriate Thought Process & Associations: Intact, Linear Thought Content: Appropriate Hallucination Type: None Delusion Type: None Suicidal Ideation: No Suicidal Plan: No Suicidal Intention: No Homicidal Ideation: No Homicidal Plan: No Homicidal Intention: No Insight: Fair Judgment: Impulsive Assessment and Plan - Assessment (1) Schizophrenia Code(s): F20.9 - Schizophrenia, unspecified Status: Acute - Plan Plan: Patient this time continues to report stable mood denies any psychotic symptoms , denies any suicidal homicidal ideations. She continues to be noted with progressive weakness secondary to MS. Treatment team will attempt to recontact neurology to determine whether patient can be restarted on her medications for MS at this time. We will continue rest of medications. Continue to monitor mood and behavior. Discharge planning in progress. Justification for Continued Inpatient Stay: At risk of further decompensation a lower level of care.
[2018-07-05] MEDS: REMOVE OLD NICODERM (NICOTINE) PATCH T-DERMAL SCH (21:01)
[2018-07-06] MEDS: Pregabalin 75 MG Capsule PO SCH ×2 (09:41→20:23)
--- NOTE | 2018-07-06 12:45 | P.PNPSY ---
Subjective Chief Complaint: Schizophrenia Remarks: Reviewed electronic medical records and discussed case with staff. Follow-up was conducted in the day room with CATARINA Freeman present. Her nurse reports that Dr. Omalley requested finding out about the patient's MS medications and if they can be reinitiated. Patient states she feels "pretty good". Her appetite' s been good. Patient's mood is good her affect is euthymic. Mental Status Examination Appearance: Appropriate Consciousness: Alert Orientation: x4 Motor Activity: Other (Somewhat psychomotor slowed) Speech: Slow Language: Adequate Fund of Knowledge: Inadequate Attention and Concentration: Easily distracted Memory: Impaired Mood: Appropriate Affect: Appropriate Thought Process & Associations: Intact, Linear Thought Content: Appropriate Hallucination Type: None Delusion Type: None Suicidal Ideation: No Suicidal Plan: No Suicidal Intention: No Homicidal Ideation: No Homicidal Plan: No Homicidal Intention: No Insight: Fair Judgment: Impulsive Assessment and Plan - Assessment (1) Schizophrenia Code(s): F20.9 - Schizophrenia, unspecified Status: Acute - Plan Plan: Patient will be reevaluated Sunday by the attending psychiatrist. Continue with current treatment plan. Justification for Continued Inpatient Stay: Moving this patient to a less restrictive environment would likely result in decompensation.
[2018-07-06] MEDS: REMOVE OLD NICODERM (NICOTINE) PATCH T-DERMAL SCH (20:25)
--- NOTE | 2018-07-07 08:26 | P.PNPSY ---
Subjective Chief Complaint: Schizophrenia Remarks: Reviewed electronic medical records and discussed case with staff. Follow-up was conducted in the day room with CATARINA Alcantar present. Patient looks better. She is engaging in conversation. Denies AVH. Feels that her appetite has improved. Sleeping well. Nurse's report that her buttock is excoriated and are requesting a wound consult. Mood is euthymic. Review of Systems All other systems reviewed negative except as stated in HPI Comments: buttock excoriated. patient has decreased mobility Mental Status Examination Appearance: Appropriate Consciousness: Alert Orientation: x4 Motor Activity: Other (Somewhat psychomotor slowed) Speech: Slow Language: Adequate Fund of Knowledge: Inadequate Attention and Concentration: Easily distracted Memory: Impaired Mood: Appropriate Affect: Appropriate Thought Process & Associations: Intact, Linear Thought Content: Appropriate Hallucination Type: None Delusion Type: None Suicidal Ideation: No Suicidal Plan: No Suicidal Intention: No Homicidal Ideation: No Homicidal Plan: No Homicidal Intention: No Insight: Fair Judgment: Impulsive Assessment and Plan - Assessment (1) Schizophrenia Code(s): F20.9 - Schizophrenia, unspecified Status: Acute - Plan Plan: Patient will be reevaluated Sunday by the attending psychiatrist. Continue with current treatment plan. Justification for Continued Inpatient Stay: Moving patient to a less restrictive environment may result in her decompensation.
[2018-07-07] MEDS: Pregabalin 75 MG Capsule PO SCH ×2 (09:19→20:16)
[2018-07-07] MEDS: REMOVE OLD NICODERM (NICOTINE) PATCH T-DERMAL SCH (20:18)
[2018-07-08] MEDS: Pregabalin 75 MG Capsule PO SCH ×2 (08:38→21:50)
--- NOTE | 2018-07-08 10:38 | P.PNWCN ---
Wound Care Nurse Consult Description: wound consult ordered by for wound management. Communicated with: Katherine ELMORE 2500 Recommendation: please refer to wound care guidelines for moisture control. Additional information: patient was not seen by racebook writer. No wound assessment nursing notes.Please refer to guidelines in place for moisture associated skin damage Cal[place] appropriate.
--- NOTE | 2018-07-08 12:51 | P.PNPSY ---
Subjective Chief Complaint: Schizophrenia Remarks: Reviewed electronic medical records and discussed case with staff. Follow-up was conducted in the day room with CATARINA Alcantar present. Patient continues to be in a good mood although today she reports being slightly upset because her Social Security check was not as much as it should have been. However, she is on to report that her son who is her POA is looking into it. She also reports that there is been some issues with the patient's medication. Patient give us the name of her case assembler and phone number who she states has the medication as office the nurse will continue to work on that. Apparently, the plan is for the patient to be discharged to her sister's house. She states that she will need an order for a wheelchair and a bedside commode before that happens. Review of Systems All other systems reviewed negative except as stated in HPI Mental Status Examination Appearance: Appropriate Consciousness: Alert Orientation: x4 Motor Activity: Other (Somewhat psychomotor slowed) Speech: Slow Language: Adequate Fund of Knowledge: Inadequate Attention and Concentration: Easily distracted Memory: Impaired Mood: Appropriate Affect: Appropriate Thought Process & Associations: Intact, Linear Thought Content: Appropriate Hallucination Type: None Delusion Type: None Suicidal Ideation: No Suicidal Plan: No Suicidal Intention: No Homicidal Ideation: No Homicidal Plan: No Homicidal Intention: No Insight: Fair Judgment: Impulsive Assessment and Plan - Assessment (1) Schizophrenia Code(s): F20.9 - Status: Acute
[2018-07-08] MEDS: REMOVE OLD NICODERM (NICOTINE) PATCH T-DERMAL SCH (22:52)
--- NOTE | 2018-07-09 08:11 | P.PNPSY ---
Spoke by phone with Darwni Bush, , in regards to Jeanne's MS medication. He states that he will bring it by the hospital later this morning. Per medical staff she is to be restarted on it.
[2018-07-09] MEDS: Pregabalin 75 MG Capsule PO SCH ×2 (09:49→20:21)
[2018-07-09] MEDS: TERIFLUNOMIDE 14 MG PO SCH (13:03)
--- NOTE | 2018-07-09 16:39 | P.PNPSY ---
Subjective Chief Complaint: Schizophrenia Remarks: Patient seen for follow up, chart reviewed. Discussion with nursing staff reported patient with no behavioral services, cooperative. Patient was found participating in groups. Patient states that she is feeling better, less weak that she was restarted back on Aubagio. She mentions that she has spoken to her sister at that sister had mentioned to her that she will be ready for patient return to her residence in a week. Patient states that she is feeling better, continues to have stable mood, denying any present symptoms of this time. Review of Systems All other systems reviewed negative except as stated in HPI Mental Status Examination Appearance: Appropriate Consciousness: Alert Orientation: x4 Motor Activity: Other (Somewhat psychomotor slowed) Speech: Slow Language: Adequate Fund of Knowledge: Inadequate Attention and Concentration: Easily distracted Memory: Impaired Mood: Appropriate Affect: Appropriate Thought Process & Associations: Intact, Linear Thought Content: Appropriate Hallucination Type: None Delusion Type: None Suicidal Ideation: No Suicidal Plan: No Suicidal Intention: No Homicidal Ideation: No Homicidal Plan: No Homicidal Intention: No Insight: Fair Judgment: Impulsive Assessment and Plan - Assessment (1) Schizophrenia Code(s): F20.9 - Schizophrenia, unspecified Status: Acute - Plan Plan: Patient this time continues with stable mood, denying any perceptional service of delusions. Patient compliant with treatment. Possibility of patient returning back to assist with residents will be continued to be explored. Continue to monitor mood and behavior. Patient continues require assistance as she has weakness secondary to MS and would benefit from [facility] facility. Discharge planning a progress. Justification for Continued Inpatient Stay: At risk of further decompensation a lower level care.
[2018-07-09] MEDS: REMOVE OLD NICODERM (NICOTINE) PATCH T-DERMAL SCH (20:24)
[2018-07-10] MEDS: Pregabalin 75 MG Capsule PO SCH ×2 (10:27→20:41)
[2018-07-10] MEDS: TERIFLUNOMIDE 14 MG PO SCH (10:28)
[2018-07-10] MEDS: REMOVE OLD NICODERM (NICOTINE) PATCH T-DERMAL SCH (10:45)
--- NOTE | 2018-07-10 15:00 | P.TTN ---
- Patient Problems Problems: 1. Discharge planning 2. Medication compliance 3. Knowledge deficit 4. Lack of coping skills - Progress Toward Goals Provider Present: Dr. Stuart Watson, Dr. Jhonatan Omalley Provider Input: :Still meets criteria. Contact Social Security office to change POA, also contact DCF. 07/01-- Stoppedcertain medication, increased weakness, neurologist consult requested. Needs placement. We have been trying to get ahold of her brother whom has no insight. Nurse(s) Present: Lydia ELMORE Nurse Input: 07/10/18: Pt is appropriate, cooperative with treatment, sleeps well , and med compliant Psychiatric Counselors Present: Bailey Peters LCSW, Dony Lim Jr., [facility], Other (Paz Flores) Psychiatric Therapist Input: 07/10/18: Looking for Placement. Engages in activities, pleasant and cooperative. 07/01 Paz - Patient contiues to be focused on discharge, pleasant, cooperative. Paz -In need of placment with SNF due to fall risk,engages, at times pleasantly confused, cooperative, no beahviors; [facility] refused her because they did not want to pay for her MS medication. Group Spec/RT/OT/FOUNTAIN Present: SOUTH Emery, Alin Calix, OT Group Spec/RT/OT/FOUNTAIN Input: 07/10/18: Patient attends the group activities on a regular basis. Pt is appropiate and engages in projects with minimal assistance. 07/01 - attends select groups. Appropriate, attends groups, follows rules, engages in projects, is social, insightful in groups - Discharge Plan Care Coordination Program In need of snf- possible placement issue due to MS - [facility] medicaid application being filed - Documentation Scribe: Vilma Churchill Teaching Recipient: Patient
--- NOTE | 2018-07-10 16:45 | P.PNPSY ---
Subjective Chief Complaint: Schizophrenia Remarks: Patient seen for follow up; chart reviewed. Discussion with nursing staff reported that patient is noted to be slightly dysphoric today as she has been noticing having difficulty with ambulation when working with physical therapy today with noted decrease in strength. Patient was found participating group, interviewed with nurse. Patient states that she is hopeful that she is able to be discharged to her sister's home next week after her discussion with her over the phone. Patient states feeling hopeful that she will regain her strength soon as she has been restarted on her MS medications. Patient continues to deny any perceptional services, any suicidal homicidal ideations. Patient reports having slept well last evening. Patient states that upon discharge she [facility]. Review of Systems All other systems reviewed negative except as stated in HPI Mental Status Examination Appearance: Appropriate Consciousness: Alert Orientation: x4 Motor Activity: Other (Somewhat psychomotor slowed) Speech: Slow Language: Adequate Fund of Knowledge: Inadequate Attention and Concentration: Easily distracted Memory: Impaired Mood: Appropriate Affect: Appropriate Thought Process & Associations: Intact, Linear Thought Content: Appropriate Hallucination Type: None Delusion Type: None Suicidal Ideation: No Suicidal Plan: No Suicidal Intention: No Homicidal Ideation: No Homicidal Plan: No Homicidal Intention: No Insight: Fair Judgment: Impulsive Assessment and Plan - Assessment (1) Schizophrenia Code(s): F20.9 - Schizophrenia, unspecified Status: Acute - Plan Plan: Patient this time continues with progressive weakness secondary to MS, recently restarted back on Aubagio. Patient continues with stable mood and compliant with treatment. Continue current treatment. Continue to monitor mood and behavior. Discharge planning in progress. Justification for Continued Inpatient Stay: At risk of further decompensation a lower level of care.
[2018-07-11] MEDS: Pregabalin 75 MG Capsule PO SCH ×2 (09:05→20:48)
[2018-07-11] MEDS: TERIFLUNOMIDE 14 MG PO SCH (13:39)
[2018-07-11 16:25] LABS: Baso % (Auto) 0.8 % (0.0-2.0); Eos # (Auto) 0.2 th/mm3 (0.0-0.4); Eos % (Auto) 5.7 % (0.0-4.0); Hematocrit 34.5 % (35.0-46.0); Hemoglobin 11.5 gm/dL (11.6-15.3); Lymph # (Auto) 1.4 th/mm3 (1.0-4.8); Lymph % (Auto) 33.4 % (9.0-44.0); Mean Corpuscular HGB Conc 33.4 % (32.0-36.0); Mean Corpuscular Hemoglobin 29.6 pg (27.0-34.0); Mean Corpuscular Volume 88.5 fL (80.0-100.0); Mean Platelet Volume 7.9 fL (7.0-11.0); Mono # (Auto) 0.7 th/mm3 (0.0-0.9); Mono % (Auto) 17.1 % (0.0-8.0); Neut # (Auto) 1.9 th/mm3 (1.8-7.7); Platelet Count 207 th/mm3 (150-450); Red Cell Distribution Width 14.3 % (11.6-17.2); White Blood Count 4.3 th/mm3 (4.0-11.0)
--- NOTE | 2018-07-11 16:26 | P.PNPSY ---
Subjective Chief Complaint: Schizophrenia Remarks: Patient seen for follow up; chart reviewed. Discussion with nursing staff reported that patient with no behavioral changes, still believes that she will be going to her sister home next week. Physical therapy continues to work with her. Patient was found lying hospital chair in the dayroom asleep was able to wake up and interact with interview today. Patient states that she is feeling "good" hopeful that she will regain her strength. She reports having work with physical therapy and had practice standing which as per nursing report stated the patient had difficulty being able to maintain her weight with her legs. Patient denies any perceptional services denies any delusions. Patient tolerated medications well. We will order repeat chemistries to monitor liver function. Review of Systems All other systems reviewed negative except as stated in HPI Mental Status Examination Appearance: Appropriate Consciousness: Alert Orientation: x4 Motor Activity: Other (Somewhat psychomotor slowed) Speech: Slow Language: Adequate Fund of Knowledge: Inadequate Attention and Concentration: Easily distracted Memory: Impaired Mood: Appropriate Affect: Appropriate Thought Process & Associations: Intact, Linear Thought Content: Appropriate Hallucination Type: None Delusion Type: None Suicidal Ideation: No Suicidal Plan: No Suicidal Intention: No Homicidal Ideation: No Homicidal Plan: No Homicidal Intention: No Insight: Fair Judgment: Impulsive Assessment and Plan - Assessment (1) Schizophrenia Code(s): F20.9 - Schizophrenia, unspecified Status: Acute - Plan Plan: Patient continued with stable mood, denying any perceptional disturbances or delusions. We will order repeat CBC and comprehensive metabolic panel to monitor chemistries and liver function tests. We will continue current treatment. Continue to monitor mood and behavior. Continue physical therapy. Discharge planning a progress. Justification for Continued Inpatient Stay: At risk of further decompensation a lower level of care.
[2018-07-11 16:48] LABS: Anion Gap 8 meq/L (5-15); Aspartate Aminotransferase 13 U/L (15-37); Blood Urea Nitrogen 12 mg/dL (7-18); Calcium 8.8 mg/dL (8.5-10.1); Carbon Dioxide 25.4 meq/L (21.0-32.0); Chloride 108 meq/L (98-107); Glomerular Filtration Rate Greater Than 89 mL/min (>89); Glucose,Random 72 mg/dL (74-106); Potassium 4.1 meq/L (3.5-5.1); Sodium 141 meq/L (136-145)
[2018-07-11 16:49] LABS: Alanine Aminotransferase 19 U/L (10-53)
[2018-07-11 16:51] LABS: Alkaline Phosphatase 113 U/L (45-117); Total Protein 7.1 g/dL (6.4-8.2)
[2018-07-11] MEDS: LORazepam 1 MG Tablet PO PRN (20:49)
[2018-07-12] MEDS: REMOVE OLD NICODERM (NICOTINE) PATCH T-DERMAL SCH ×2 (02:06→20:19)
[2018-07-12] MEDS: Pregabalin 75 MG Capsule PO SCH ×2 (08:33→20:19)
[2018-07-12] MEDS: TERIFLUNOMIDE 14 MG PO SCH (08:45)
--- NOTE | 2018-07-12 16:30 | P.PNPSY ---
Subjective Chief Complaint: Schizophrenia Remarks: Patient seen for follow up; chart reviewed. Discussion with nursing staff reported that patient continues to have weakness, but no behavioral disturbances on hospital chair noted B, cooperative. Patient states that she is attempting to reach her sister when she was expecting to go home on Sunday although treatment team was notified by patient's sister that she will be willing to accept the patient until the end of the month. Patient denies any perceptional services denies any delusions noted to be somewhat due to continued hospitalization and wanted to go home. Patient states she is motivated to regain her strength when she leaves the hospital. Review of Systems All other systems reviewed negative except as stated in HPI Mental Status Examination Appearance: Appropriate Consciousness: Alert Orientation: x4 Motor Activity: Other (Somewhat psychomotor slowed) Speech: Slow Language: Adequate Fund of Knowledge: Inadequate Attention and Concentration: Easily distracted Memory: Impaired Mood: Appropriate Affect: Appropriate Thought Process & Associations: Intact, Linear Thought Content: Appropriate Hallucination Type: None Delusion Type: None Suicidal Ideation: No Suicidal Plan: No Suicidal Intention: No Homicidal Ideation: No Homicidal Plan: No Homicidal Intention: No Insight: Fair Judgment: Impulsive Assessment and Plan - Assessment (1) Schizophrenia Code(s): F20.9 - Schizophrenia, unspecified Status: Acute - Plan Plan: Patient continued with stable mood, no perceptual services or delusions. Patient continues with medications to treat MS. Labs reviewed. We will continue to monitor mood and behavior. Discharge planning a progress. Justification for Continued Inpatient Stay: At risk for further decompensation at lower level of care.
[2018-07-13] MEDS: Pregabalin 75 MG Capsule PO SCH ×2 (08:49→20:31)
[2018-07-13] MEDS: TERIFLUNOMIDE 14 MG PO SCH (08:51)
--- NOTE | 2018-07-13 11:09 | P.PNPSY ---
Subjective Chief Complaint: Schizophrenia Remarks: Reviewed electronic medical records and discussed case with staff. Follow-up was conducted in the day room. Patient states that she did not sleep as well as usual last night. She reports that she woke up around 2 AM and could not get back to sleep. States that her appetite is good. That her mood has been good. Patient is awaiting discharge planning. Mental Status Examination Appearance: Appropriate Consciousness: Alert Orientation: x4 Motor Activity: Other (Somewhat psychomotor slowed) Speech: Slow Language: Adequate Fund of Knowledge: Inadequate Attention and Concentration: Easily distracted Memory: Impaired Mood: Appropriate Affect: Appropriate Thought Process & Associations: Intact, Linear Thought Content: Appropriate Hallucination Type: None Delusion Type: None Suicidal Ideation: No Suicidal Plan: No Suicidal Intention: No Homicidal Ideation: No Homicidal Plan: No Homicidal Intention: No Insight: Fair Judgment: Impulsive Assessment and Plan - Assessment (1) Schizophrenia Code(s): F20.9 - Schizophrenia, unspecified Status: Acute - Plan Plan: Patient will be reevaluated Sunday by the attending psychiatrist. Continue with current treatment plan. Justification for Continued Inpatient Stay: Moving this patient to a less restrictive environment would likely result in decompensation.
[2018-07-13] MEDS: REMOVE OLD NICODERM (NICOTINE) PATCH T-DERMAL SCH (20:32)
[2018-07-14] MEDS: Pregabalin 75 MG Capsule PO SCH ×2 (11:32→21:24)
[2018-07-14] MEDS: TERIFLUNOMIDE 14 MG PO SCH (11:34)
--- NOTE | 2018-07-14 12:40 | P.PNPSY ---
Subjective Chief Complaint: Schizophrenia Remarks: Reviewed electronic medical records and discussed case with staff. Follow-up was conducted in the day room. Patient reports that she is sleeping and eating well. Her affect is a little depressed today. After discussing with her it seems that she is a bit despondent over her sister's putting off her discharged her home. Overall she states that her mood is much improved. Mental Status Examination Appearance: Appropriate Consciousness: Alert Orientation: x4 Motor Activity: Other (Somewhat psychomotor slowed) Speech: Slow Language: Adequate Fund of Knowledge: Inadequate Attention and Concentration: Easily distracted Memory: Impaired Mood: Appropriate Affect: Appropriate Thought Process & Associations: Intact, Linear Thought Content: Appropriate Hallucination Type: None Delusion Type: None Suicidal Ideation: No Suicidal Plan: No Suicidal Intention: No Homicidal Ideation: No Homicidal Plan: No Homicidal Intention: No Insight: Fair Judgment: Impulsive Assessment and Plan - Assessment (1) Schizophrenia Code(s): F20.9 - Schizophrenia, unspecified Status: Acute - Plan Plan: Patient will be reevaluated Sunday by the attending psychiatrist. Continue with current treatment plan. Justification for Continued Inpatient Stay: Moving this patient to a less restrictive environment would likely result in decompensation.
[2018-07-15] MEDS: Pregabalin 75 MG Capsule PO SCH ×2 (08:42→20:01)
[2018-07-15] MEDS: TERIFLUNOMIDE 14 MG PO SCH ×3 (09:12→09:22)
--- NOTE | 2018-07-15 16:54 | P.PNPSY ---
Subjective Chief Complaint: Schizophrenia Remarks: Patient seen for follow-up, chart reviewed. Discussion with nursing staff reported that patient with no behavioral disturbances compliant with medication. Patient was found sitting in the room noted B, cooperative. Patient states that she is still hopes of having her sister except her to her home with home health services but recommendations to have patient into a fpc facility was reviewed which patient continues to prefer returning back to her sister's home. Patient reports having increase strength having taking more steps with physical therapy today which she was happy about. Patient denies any perceptional services denies any SI or HI. Review of Systems All other systems reviewed negative except as stated in HPI Mental Status Examination Appearance: Appropriate Consciousness: Alert Orientation: x4 Motor Activity: Other (Somewhat psychomotor slowed) Speech: Slow Language: Adequate Fund of Knowledge: Inadequate Attention and Concentration: Adequate Memory: Unremarkable Mood: Appropriate Affect: Appropriate Thought Process & Associations: Intact, Linear Thought Content: Appropriate Hallucination Type: None Delusion Type: None Suicidal Ideation: No Suicidal Plan: No Suicidal Intention: No Homicidal Ideation: No Homicidal Plan: No Homicidal Intention: No Insight: Fair Judgment: Impulsive Assessment and Plan - Assessment (1) Schizophrenia Code(s): F20.9 - Schizophrenia, unspecified Status: Acute - Plan Plan: Patient continues stable mood, compliant with medications. Patient denies any perceptional disturbances or delusions. Denies any SI or HI. Patient to continue current treatment. Continue to monitor mood and behavior. Patient to continue with physical therapy. Discharge planning a progress. Justification for Continued Inpatient Stay: At risk of further decompensation at lower level care.
[2018-07-15] MEDS: REMOVE OLD NICODERM (NICOTINE) PATCH T-DERMAL SCH (20:03)
[2018-07-16] MEDS: TERIFLUNOMIDE 14 MG PO SCH (09:00)
[2018-07-16] MEDS: Pregabalin 75 MG Capsule PO SCH ×2 (09:10→20:22)
--- NOTE | 2018-07-16 16:27 | P.PNPSY ---
Subjective Chief Complaint: Schizophrenia Remarks: Patient seen for follow-up, chart reviewed. Discussion with nursing staff reported that patient continued with compliance of medications, continues with good spirits. Patient was found participating group noted become cooperative. Patient states that she is happy that she feels she is improving with increased strength when working with physical therapy and had taken more steps when standing. Patient continues to have hopes of being discharged to her sister's residence denying any perceptional services reporting mood to be "good" and states she is hopeful. Review of Systems All other systems reviewed negative except as stated in HPI Mental Status Examination Appearance: Appropriate Consciousness: Alert Orientation: x4 Motor Activity: Other (Somewhat psychomotor slowed) Speech: Slow Language: Adequate Fund of Knowledge: Inadequate Attention and Concentration: Adequate Memory: Unremarkable Mood: Appropriate Affect: Appropriate Thought Process & Associations: Intact, Linear Thought Content: Appropriate Hallucination Type: None Delusion Type: None Suicidal Ideation: No Suicidal Plan: No Suicidal Intention: No Homicidal Ideation: No Homicidal Plan: No Homicidal Intention: No Insight: Fair Judgment: Impulsive Assessment and Plan - Assessment (1) Schizophrenia Code(s): F20.9 - Schizophrenia, unspecified Status: Acute - Plan Plan: Patient continues with stable mood with no perceptual services or delusions. Patient future oriented and looking forward to will be with her sister upon discharge. Patient continues with weakness secondary from MS. Patient to continue current treatment, continue to monitor mood and behavior. Patient continues to require much assistance for ADLs. Discharge planning in progress. Justification for Continued Inpatient Stay: At risk of further decompensation at lower level care.
[2018-07-16] MEDS: REMOVE OLD NICODERM (NICOTINE) PATCH T-DERMAL SCH (21:00)
[2018-07-17] MEDS: Pregabalin 75 MG Capsule PO SCH ×2 (08:59→20:02)
[2018-07-17] MEDS: TERIFLUNOMIDE 14 MG PO SCH (09:00)
[2018-07-17] MEDS: REMOVE OLD NICODERM (NICOTINE) PATCH T-DERMAL SCH (20:02)
--- NOTE | 2018-07-17 20:21 | P.PNPSY ---
Subjective Chief Complaint: Schizophrenia Remarks: Patient seen for follow-up, chart reviewed. Discussion with nursing staff reported that patient with no behavioral disturbances, compliant and pleasant with staff. Patient found participating in group activity, noted to be in good spirits, noted to be hopeful with regaining her strength and continuing treatment. Patient continues to deny any perceptual disturbances or delusions. Review of Systems All other systems reviewed negative except as stated in HPI Mental Status Examination Appearance: Appropriate Consciousness: Alert Orientation: x4 Motor Activity: Other (Somewhat psychomotor slowed) Speech: Slow Language: Adequate Fund of Knowledge: Inadequate Attention and Concentration: Adequate Memory: Unremarkable Mood: Appropriate Affect: Appropriate Thought Process & Associations: Intact, Linear Thought Content: Appropriate Hallucination Type: None Delusion Type: None Suicidal Ideation: No Suicidal Plan: No Suicidal Intention: No Homicidal Ideation: No Homicidal Plan: No Homicidal Intention: No Insight: Fair Judgment: Impulsive Assessment and Plan - Assessment (1) Schizophrenia Code(s): F20.9 - Schizophrenia, unspecified Status: Acute - Plan Plan: Patient with stable mood, tolerating treatment well, continues with significant weakness secondary to MS. Continue current treatment, continue to monitor mood and behavior. Discharge planning in progress. Justification for Continued Inpatient Stay: At risk for further decompensation at lower level of care.
[2018-07-18] MEDS: TERIFLUNOMIDE 14 MG PO SCH (10:48)
[2018-07-18] MEDS: Pregabalin 75 MG Capsule PO SCH ×2 (10:48→20:23)
--- NOTE | 2018-07-18 12:35 | P.TTN ---
- Patient Problems Problems: 1. Discharge planning 2. Medication compliance 3. Knowledge deficit 4. Lack of coping skills - Progress Toward Goals Provider Present: Dr. Stuart Watson, Dr. Jhonatan Omalley Provider Input: :Still meets criteria. Contact Social Security office to change POA, also contact DCF. 07/01-- Stoppedcertain medication, increased weakness, neurologist consult requested. Needs placement. We have been trying to get ahold of her brother whom has no insight. 07/17/18: Discharge home on Sunday with Sister 07/25/18 Nurse(s) Present: Lydia ELMORE Nurse Input: 07/10/18: Pt is appropriate, cooperative with treatment, sleeps well , and med compliant Psychiatric Counselors Present: Bailey Peters LCSW, Dony Lim Jr., [facility], Other (Paz Flores) Psychiatric Therapist Input: 07/10/18: Looking for Placement. Engages in activities, pleasant and cooperative. 07/01 Paz - Patient contiues to be focused on discharge, pleasant, cooperative. Paz -In need of placment with SNF due to fall risk,engages, at times pleasantly confused, cooperative, no beahviors; [facility] refused her because they did not want to pay for her MS medication. Group Spec/RT/OT/FOUNTAIN Present: SOU[facility] Emery, Alin Calix, OT Group Spec/RT/OT/FOUNTAIN Input: 07/10/18: Patient attends the group activities on a regular basis. Pt is appropiate and engages in projects with minimal assistance. 07/01 - attends select groups. Appropriate, attends groups, follows rules, engages in projects, is social, insightful in groups - Discharge Plan Care Coordination Program In need of snf- possible placement issue due to MS - [place] medicaid application being filed - Documentation Scribe: Vilma Churchill Teaching Recipient: Patient
--- NOTE | 2018-07-18 12:59 | P.PNPSY ---
Subjective Chief Complaint: Schizophrenia Remarks: Patient seen for follow up; chart reviewed. Patient continues with notable weakness which has worsened since admission but currently having resumed MS treatment. Patient continues to work with PT, requiring assistance with ADLs, which will require full total care. Patient currently has significant weakness that she currently requires assistance to transfer. When discharged home, patient will require and benefit from hospital bed to assistance with changes in body position and ability to assist with easier transfer onto wheelchair as patient's MS will have a progressive course and at this time is in need of this assistance. Patient will also require wheelchair as she currently does not have the ability to ambulate which at this time at most can take few steps with assistance from physical therapist with practically full assist. Patient hopeful to go home soon once assistance is in place at her sister's home. Review of Systems All other systems reviewed negative except as stated in HPI Mental Status Examination Appearance: Appropriate Consciousness: Alert Orientation: x4 Motor Activity: Other (Somewhat psychomotor slowed) Speech: Slow Language: Adequate Fund of Knowledge: Inadequate Attention and Concentration: Adequate Memory: Unremarkable Mood: Appropriate Affect: Appropriate Thought Process & Associations: Intact, Linear Thought Content: Appropriate Hallucination Type: None Delusion Type: None Suicidal Ideation: No Suicidal Plan: No Suicidal Intention: No Homicidal Ideation: No Homicidal Plan: No Homicidal Intention: No Insight: Fair Judgment: Impulsive Assessment and Plan - Assessment (1) Schizophrenia Code(s): F20.9 - Schizophrenia, unspecified Status: Acute - Plan Plan: Patient at this time continues to require further assistance with ADLs due to current significant weakness from MS. Continue current treatment, continue to monitor mood and behavior. Will request assistance devices for safe disposition back to sister's home. Discharge planning in progress. Justification for Continued Inpatient Stay: At risk for further decompensation at lower level of care.
[2018-07-18] MEDS: REMOVE OLD NICODERM (NICOTINE) PATCH T-DERMAL SCH (20:23)
--- NOTE | 2018-07-18 20:55 | P.PNPSY ---
Subjective Chief Complaint: Schizophrenia Remarks: Patient seen for follow-up, chart reviewed. Discussion with nursing staff reported that patient no behavioral services, pleasant with staff. Patient was found sitting hospital chair eating lunch noted B, cooperative. Patient states that she is looking forward to discharge soon as she is aware that medical team is attempting to coordinate patient having medical devices and sister's home for support. Patient continues to deny any perceptional disturbances or delusions. Review of Systems All other systems reviewed negative except as stated in HPI Mental Status Examination Appearance: Appropriate Consciousness: Alert Orientation: x4 Motor Activity: Other (Somewhat psychomotor slowed) Speech: Slow Language: Adequate Fund of Knowledge: Inadequate Attention and Concentration: Adequate Memory: Unremarkable Mood: Appropriate Affect: Appropriate Thought Process & Associations: Intact, Linear Thought Content: Appropriate Hallucination Type: None Delusion Type: None Suicidal Ideation: No Suicidal Plan: No Suicidal Intention: No Homicidal Ideation: No Homicidal Plan: No Homicidal Intention: No Insight: Adequate Judgment: Adequate Assessment and Plan - Assessment (1) Schizophrenia Code(s): F20.9 - Schizophrenia, unspecified Status: Acute - Plan Plan: Patient continues to be psychiatrically stable, currently awaiting the appropriate coordination with patient's sister for discharge planning. We will continue current treatment. We will continue to monitor with behavior. Discharge planning a progress. Justification for Continued Inpatient Stay: At risk of further decompensation at lower level care.
[2018-07-19] MEDS: Pregabalin 75 MG Capsule PO SCH ×2 (08:53→20:47)
[2018-07-19] MEDS: TERIFLUNOMIDE 14 MG PO SCH (08:53)
--- NOTE | 2018-07-19 18:01 | P.PNPSY ---
Subjective Chief Complaint: Schizophrenia Remarks: Patient seen for follow-up, chart reviewed. Discussion with nursing staff reported that patient was somewhat upset about her roommate who has dementia but noted B, cooperative. Patient was found in day room watching television noted B, cooperative. Patient states that she is looking forward to going home hopefully by Sunday she is ready to be discharged. Patient continued with stable mood continue to be hopeful, continues to be goal directed to regain her strength and continue to work with physical therapy for the same. Patient denies any SI or HI denies any delusions. Review of Systems All other systems reviewed negative except as stated in HPI Mental Status Examination Appearance: Appropriate Consciousness: Alert Orientation: x4 Motor Activity: Other (Somewhat psychomotor slowed) Speech: Slow Language: Adequate Fund of Knowledge: Inadequate Attention and Concentration: Adequate Memory: Unremarkable Mood: Appropriate Affect: Appropriate Thought Process & Associations: Intact, Linear Thought Content: Appropriate Hallucination Type: None Delusion Type: None Suicidal Ideation: No Suicidal Plan: No Suicidal Intention: No Homicidal Ideation: No Homicidal Plan: No Homicidal Intention: No Insight: Adequate Judgment: Adequate Assessment and Plan - Assessment (1) Schizophrenia Code(s): F20.9 - Schizophrenia, unspecified Status: Acute - Plan Plan: Patient this time continues with stable mood denying any perceptional services or delusions. We will continue to await completion of discharge plan as patient will require certain medical devices for support once discharged to sister's home. Continue current treatment. Continue to monitor mood and behavior. Discharge planning a progress. Justification for Continued Inpatient Stay: At risk of further decompensation at lower level care.
[2018-07-19] MEDS: REMOVE OLD NICODERM (NICOTINE) PATCH T-DERMAL SCH (20:48)
[2018-07-20] MEDS: TERIFLUNOMIDE 14 MG PO SCH (10:11)
[2018-07-20] MEDS: Pregabalin 75 MG Capsule PO SCH ×2 (10:11→20:34)
--- NOTE | 2018-07-20 11:02 | P.PNPSY ---
Subjective Chief Complaint: Schizophrenia Remarks: Reviewed electronic medical records and discussed case with staff. Follow-up was conducted in the day room. Patient found sitting at the table finishing her breakfast. Reports that she sleeping well and her appetite has been good. She also reports she is happy because it appears that Sunday may be her day of discharge. She denies any side effects from medication. I have asked staff to help her with ensuring she brushes her teeth today and a shower tomorrow would be nice before her discharge. Mental Status Examination Appearance: Appropriate Consciousness: Alert Orientation: x4 Motor Activity: Other (Somewhat psychomotor slowed) Speech: Slow Language: Adequate Fund of Knowledge: Inadequate Attention and Concentration: Adequate Memory: Unremarkable Mood: Appropriate Affect: Appropriate Thought Process & Associations: Intact, Linear Thought Content: Appropriate Hallucination Type: None Delusion Type: None Suicidal Ideation: No Suicidal Plan: No Suicidal Intention: No Homicidal Ideation: No Homicidal Plan: No Homicidal Intention: No Insight: Adequate Judgment: Adequate Assessment and Plan - Assessment (1) Schizophrenia Code(s): F20.9 - Schizophrenia, unspecified Status: Acute - Plan Plan: Patient will be reevaluated Sunday by the attending psychiatrist. Continue with current treatment plan. Justification for Continued Inpatient Stay: Moving this patient to a less restrictive environment would likely result in decompensation.
[2018-07-20] MEDS: REMOVE OLD NICODERM (NICOTINE) PATCH T-DERMAL SCH (23:14)
--- NOTE | 2018-07-21 08:23 | P.PNPSY ---
Subjective Chief Complaint: Schizophrenia Remarks: Reviewed electronic medical records and discussed case with staff. Follow-up was conducted in the patient's room . She is sitting at the bedside in a chair waiting for breakfast. She is very spirited this morning. She states that she is being discharged to her sister tomorrow. She is concerned that a hospital bed , commode and wheelchair that she will need prior to discharge so that she can be mobile in her sister's home. No AVH. Review of Systems All other systems reviewed negative except as stated in HPI Mental Status Examination Appearance: Appropriate Consciousness: Alert Orientation: x4 Motor Activity: Other (Somewhat psychomotor slowed) Speech: Slow Language: Adequate Fund of Knowledge: Inadequate Attention and Concentration: Adequate Memory: Unremarkable Mood: Appropriate Affect: Appropriate Thought Process & Associations: Intact, Linear Thought Content: Appropriate Hallucination Type: None Delusion Type: None Suicidal Ideation: No Suicidal Plan: No Suicidal Intention: No Homicidal Ideation: No Homicidal Plan: No Homicidal Intention: No Insight: Adequate Judgment: Adequate Assessment and Plan - Assessment (1) Schizophrenia Code(s): F20.9 - Schizophrenia, unspecified Status: Acute - Plan Plan: Patient will be reevaluated Sunday by the attending psychiatrist. Continue with current treatment plan. Justification for Continued Inpatient Stay: Moving patient to a less restrictive environment may result in her decompensation.
[2018-07-21] MEDS: TERIFLUNOMIDE 14 MG PO SCH ×2 (08:28→08:35)
[2018-07-21] MEDS: Pregabalin 75 MG Capsule PO SCH ×2 (08:28→21:21)
[2018-07-21] MEDS: REMOVE OLD NICODERM (NICOTINE) PATCH T-DERMAL SCH (21:21)
[2018-07-22 06:16] VITALS: BP 103/61; PULSE 63; RESP 15; TEMP 98.2; O2SAT 99
[2018-07-22] MEDS: Pregabalin 75 MG Capsule PO SCH (08:34)
[2018-07-22] MEDS: TERIFLUNOMIDE 14 MG PO SCH (08:34)
--- NOTE | 2018-07-22 13:47 | P.TTN ---
- Patient Problems Problems: 1. Discharge planning 2. Medication compliance 3. Knowledge deficit 4. Lack of coping skills - Progress Toward Goals Provider Present: Dr. Stuart Watson, Dr. Jhonatan Omalley Provider Input: 07/22/18: Pt is expected to d/c to home of pt's sister, DME to deliver hospital bed, 3in1 and wc (counselorRosi to f/u). :Still meets criteria. Contact Social Security office to change POA, also contact DCF. 07/01-- Stoppedcertain medication, increased weakness, neurologist consult requested. Needs placement. We have been trying to get deisy of her brother whom has no insight. 07/17/18: Discharge home on Sunday with Sister 07/25/18 Nurse(s) Present: Lydia ELMORE Nurse Input: 07/10/18: Pt is appropriate, cooperative with treatment, sleeps well , and med compliant Psychiatric Counselors Present: Bailey Peters LCSW, Dony Lim Jr., [facility], Other (Paz Flores) Psychiatric Therapist Input: 07/10/18: Looking for Placement. Engages in activities, pleasant and cooperative. 07/01 Paz - Patient contiues to be focused on discharge, pleasant, cooperative. Paz -In need of placment with SNF due to fall risk,engages, at times pleasantly confused, cooperative, no beahviors; [facility] refused her because they did not want to pay for her MS medication. Group Spec/RT/OT/FOUNTAIN Present: Vilma Churchill, [employer], Alin Calix, OT Group Spec/RT/OT/FOUNTAIN Input: 07/22: Patient attends all groups. 07/10/18: Patient attends the group activities on a regular basis. Pt is appropiate and engages in projects with minimal assistance. 07/01 - attends select groups. Appropriate, attends groups, follows rules, engages in projects, is social, insightful in groups Additional Input: 07/22/18: Pt is expected to d/c to home of pt's sister, DME to deliver hospital bed, 3in1 and wc (counselor, Rosi to f/u). - Discharge Plan Care Coordination Program In need of snf- possible placement issue due to MS - [place] medicaid application being filed - Documentation Scribe: Vilma Churchill Teaching Recipient: Patient
--- NOTE | 2018-07-22 16:26 | P.DSPSY ---
Psychiatry Discharge Summary Inpatient Psychiatric care?: Yes Advance Directives: No Mental Health Advance Directive: No Health Care Proxy: No - Admission Admission Date: May 19, 2018 12:07 - Admission Diagnosis (1) Schizophrenia Code(s): F20.9 - Schizophrenia, unspecified Brief History: Patient is a 52-year-old -[place] woman, single, domiciled with friend, unemployed, with a past psychiatric history of schizophrenia, multiple psychiatric admissions, prior suicide attempt, with a past medical history significant for hypertension, asthma, multiple sclerosis, who presented to the ED voluntarily due to increased hallucinations and noncompliance with medications which patient was admitted under Bella act for psychosis and transferred to the inpatient psychiatry for further evaluation and management. Discussion with nursing staff reported the patient has a cooperative and endorsing auditory hallucinations. Patient was found participating group activity noted B, cooperative. Patient states that she is to the Bible , noted to have pressured speech, religiously preoccupied and endorsing auditory hallucinations. Patient states that she was previously any local hospital and "wrapping likfacundo Deleon" it was discharged and transported to homeless longterm. Patient noted be disorganized and time of events seemed to be inaccurate. Patient states that she has been having auditory hallucinations to hurt other people but denying any suicidal or homicidal ideations. Patient denies any paranoid delusions at this time. Patient agrees to resume antipsychotic treatment for her ongoing symptoms. Family psychiatric history: Cousin with schizophrenia, no suicides in the family Substance use history: Tobacco use(+), denies any alcohol or drug use. Patient reports remote history of crack cocaine use years ago. Past psychiatric history: Previous psychiatric diagnoses schizophrenia, multiple psychiatric admissions, reports prior suicide attempt, reports outpatient mental health follow-up at [facility] and previously on a Belal along with quetiapine which she refuses to resume at this time. Past medical history: Asthma, hypertension, multiple sclerosis Allergies: Benadryl diatrizoate meglumine, gadolinium Bendick acid, gadodiamide , gadoteridol, iodixanol, iohexol Social history: Single, reports staying with a friend. Tobacco Use In Past 30 Days: Yes How Often Do You Have a Drink Containing Alcohol: Never Hospital Course: Patient is a 52-year-old -[place] woman, single, domiciled with friend, unemployed, with a past psychiatric history of schizophrenia, multiple psychiatric admissions, prior suicide attempt, with a past medical history significant for hypertension, asthma, multiple sclerosis, who presented to the ED voluntarily due to increased hallucinations and noncompliance with medications which patient was admitted under Bella act for psychosis and transferred to the inpatient psychiatry for further evaluation and management. Patient was admitted to a locked, inpatient psychiatric unit. Appropriate precautions were in place throughout patient's hospital stay. Patient was seen and examined on the unit by psychiatry. Psychotropic medications were adjusted. There was no evidence of any suicidality or homicidality on the inpatient unit. Patient's mood and psychotic symptoms improved with the benefit of psychopharmacological treatment and had no behavioral disturbance since admission. Patient was noted to have reached stable mood, noted to participate and engage in treatment and interact with staff adequately. Patient noted to be future oriented with plans to continue treatment and outpatient follow-up appointments for continuity of care. During hospitalization patient was followed by neurology for MS and was restarted on Aubagio after LFTs were back within normal limits and had physical therapy work with the patient during hospitalization. Coordination with patient's sister was made so as to have environment in the sister's home equipped to manage patient's care. Counselor has arranged discharge plan. On the day of discharge : Patient seen and examined; chart reviewed. Case discussed with nurse and counselor. No behavioral issues overnight. On my examination today, the patient denies any suicidal homicidal ideation, intent or plan on direct questioning and contracts for safety. Patient denies any perceptional disturbances and no delusional material verbalized today. Patient denies any side effects from medication and has understanding of medication regimen and education. No physical complaints. Suicide and violence risk assessment on day of discharge both suggest lower imminent risk, and the patient's level of function is adequate for plan level of outpatient care. Patient has maximized benefit from this inpatient psychiatric hospital stay and will be discharged with discharge plan as arranged by counselor. Patient advised to return to psychiatric emergency room for any concerning psychiatric symptoms. Patient agrees with plan. - Discharge Discharge Date: 07/22/18 - Discharge Diagnosis (1) Schizophrenia Code(s): F20.9 - Schizophrenia, unspecified Status: Acute Discharge Disposition: Home - Discharge Instructions Discharge Diet: Heart Healthy Diet Activities You Can Perform: Weight Bearing As Tolerat - Discharge Time > 30 minutes Mental Status Examination Appearance: Appropriate Consciousness: Alert Orientation: x4 Motor Activity: Other (Somewhat psychomotor slowed) Speech: Slow Language: Adequate Fund of Knowledge: Inadequate Attention and Concentration: Adequate Memory: Unremarkable Mood: Appropriate Affect: Appropriate Thought Process & Associations: Intact, Linear Thought Content: Appropriate Hallucination Type: None Delusion Type: None Suicidal Ideation: No Suicidal Plan: No Suicidal Intention: No Homicidal Ideation: No Homicidal Plan: No Homicidal Intention: No Insight: Adequate Judgment: Adequate Discharge/Advance Care Plan - Results Vital Signs: Last Vital Signs Temp 98.2 F 07/22/18 06:00 Pulse 63 07/22/18 06:00 Resp 15 07/22/18 06:00 BP 103/61 07/22/18 06:00 Pulse Ox 99 07/22/18 06:00 Lab Results: Laboratory Results Hemoglobin A1c 5.8 % (4.3-6.0) 05/21/18 07:44 Triglycerides 56 mg/dL (42-150) 05/21/18 07:44 Cholesterol 167 mg/dL (120-200) 05/21/18 07:44 LDL Cholesterol, Calc 96 mg/dL (0-99) 05/21/18 07:44 HDL Cholesterol 59.9 mg/dL (40.0-60.0) 05/21/18 07:44 TSH 1.240 uIU/mL (0.358-3.740) 05/18/18 15:45 Urine Culture Comments Culture indicated 07/02/18 15:32 Summary of Procedures: none Imaging: ITS Impressions Cervical Spine MRI 05/22/18 00:00 CONCLUSION: 1. Minimal increased signal in the upper cervical cord at the C2-C3 level would be consistent with a demyelinating process. 2. There is no cord expansion to suggest neoplastic process. 3. This can easily be followed by MRI. Head MRI 05/22/18 00:00 CONCLUSION: Periventricular white matter changes that would be consistent with a pneumonic process. There is enhancement to suggest an acute process at this time. Posterior fossa is unremarkable. Venous Doppler Study 06/20/18 00:00 CONCLUSION: The study is negative for bilateral lower extremity deep venous thrombosis. Pending Results: None - Medications Number of antipsychotic medications at discharge: 1 - Discharge Care Plan Goals to Promote Your Health: * To prevent worsening of your condition and complications * To maintain your health at the optimal level Directions to Meet Your Goals: Take your medications as prescribed Follow your dietary instruction Follow activity as directed Keep your appointments as scheduled Take your immunizations and boosters as scheduled If your symptoms worsen call your PCP, if no PCP go to Urgent Care Center or Emergency Room For 30/04 questions related to your inpatient stay or results of tests pending at discharge, please contact Dr. Erik Omalley MD at Smoking is Dangerous to Your Health. Avoid second hand smoking
== END 2018-07-22 15:45 | disposition home or self-care (01) ==
LOC: NEPD 12:29 → NEDA 05-19 12:07 → H260 05-19 14:56 → H4EA 05-25 13:26 → H260 05-27 11:26 → H250 05-31 20:54 → H4EA 06-17 22:29 → H250 06-27 19:41
PROVIDERS: ADMIT Student in an Organized Health Care Education/Training Program; ATTEND Student in an Organized Health Care Education/Training Program